=== PATIENT | female | born 1955 | race Caucasian/White ===

== ENCOUNTER 2024-06-07 00:32 | Inpatient (IN) | payer BC, MEDICARE, SELFPAY ==
[2024-06-06 21:11] VITALS: BP 210/144
[2024-06-06 21:32] VITALS: BP 194/93
[2024-06-06 21:36] LABS: % Basophils 0.4 % (0-2); % Eosinophils 0.3 % (0-6); % Immature Granulocytes 0.4 % (0-0.5); % Lymphocytes 18.9 % (20.5-51.1); % Monocytes 6.6 % (1.7-9.3); % Neutrophils 73.4 % (42.2-75.2); Absolute Lymphocytes 1.4 10^3/uL (1.2-3.4); Absolute Monocytes 0.5 10^3/uL (0.1-0.6); Absolute Neutrophils 5.2 10^3/uL (1.4-6.5); Hematocrit 38.2 % (37.0-47.0); Hemoglobin 13.6 g/dL (12.0-16.0); Mean Corp Hgb Conc. 35.6 g/dL (33.0-37.0); Mean Corpuscular Hgb 32.5 pg (27.0-31.0); Mean Corpuscular Volume 91.4 fL (81.0-99.0); Mean Platelet Volume 8.8 fL (7.4-10.4); Nucleated Red Blood Cells % 0 %; Platelet Count 243 10^3/uL (130-400); Red Blood Cell Count 4.18 10^6/uL (4.20-5.40); Red Cell Dist. Width 12.3 % (11.5-14.5); White Blood Cell Count 7.1 10^3/uL (4.8-10.8)
[2024-06-06 22:00] VITALS: BP 179/83
[2024-06-06 22:08] LABS: ALT (SGPT) 35 U/L (0-35); AST (SGOT) 42 U/L (14-36); Albumin 4.7 g/dl (3.5-5.0); Alkaline Phosphatase 58 U/L (38-126); Blood Urea Nitrogen 14 mg/dl (7-17); Carbon Dioxide 21 mmol/L (22-30); Chloride 96 mmol/L (98-107); Glucose 105 mg/dl (70-99); Potassium 3.7 mmol/L (3.5-5.1); Sodium 131 mmol/L (135-145); Total Bilirubin 1.1 mg/dl (0.2-1.3); Total Protein 7.6 g/dl (6.3-8.2); eGFR > 60.00
[2024-06-06 22:12] LABS: INR 0.98; PT 13.3 Sec (11.4-14.6)
[2024-06-06 22:12] LABS: Erythrocyte Sed Rate 7 mm/hour (0-20)
[2024-06-06 22:13] LABS: APTT 30.4 Sec (23.4-35.0)
--- NOTE | 2024-06-06 22:26 | ED.GENMED ---
History of Present Illness
General
Chief Complaint: Change in Mental Status
Source: patient and spouse
Exam Limitations: altered mental status
Time Seen by Provider: 06/06/24 21:24
Nursing documentation reviewed up to this point in time: agreed with
History of Present Illness
History of Present Illness:
came home and found confused around 4 PM. He is concerned because she could not remember any of the events that transpired over the weekend. On my initial exam patient had expressive aphasia without slurring. Patient denies any known
trauma. She does admit to drinking 3 or 4 vodka drinks daily. Significant other states that he left the home around noon and did not notice anything abnormal about her behavior. When he came home around 4 PM he definitely noticed her confusion
and memory loss.
If applicable-neuro sx onset
Onset of symptoms known: Yes
Date of onset of symptoms: 06/06/24
Time of onset of symptoms: 04:00
Time pt last seen normal is known: No
Date last time pt seen normal: 06/06/24
Phy Exam
General Physical Exam
General Presentation: well appearing and no apparent distress
General age: appears stated age
General Skin: warm and dry
General Habitus: normal
General Mental: confused
General Hydration: appears well hydrated
ENT Exam
ENT Exam: EOMI, pharynx normal, neck supple and normocephalic
Eye Exam
Eye Exam: PERRL, cornea clear and conjunctiva normal
Cardiovascular Exam
Cardiovascular Exam: regular rate/rhythm, no edema, no murmur and normal peripheral pulses
Pulmonary Exam
Pulmonary Exam: lungs clear, no respiratory distress, no rales, no crackles, no rhonchi, no stridor, no wheezing and no cough
Gastrointestinal Exam
Gastrointestinal Exam: normal bowel sounds, non tender, soft, no organomegaly, no pulsatile mass and non distended
Neurological Exam
Neurological Exam: alert, oriented x3, no motor deficits and speech normal
Musculoskeletal Exam
Musculoskeletal Exam: full ROM and no edema
Skin Exam
Skin Exam: normal color, warm/dry, no rash and no petechia
Psychiatric Exam
Psychiatric Exam: normal mood/affect
Scores
NIH Stroke Score
Level of Consciousness: 0 - Alert
LOC Questions: 0-Answers both correctly
LOC Commands: 0-Performs both correctly
Best Horizontal Gaze: 0-Normal
Visual Pathak: 0=Normal, no visual loss
Facial Palsy: 0=Normal, symmetrical
Motor - Right Arm: 0=No drift 10 seconds
Motor - Left Arm: 0=No drift 10 seconds
Motor - Right Le-No drift 5 seconds
Motor - Left Le-No drift 5 seconds
Limb Ataxia: 0-Absent
Sensation: 0-Normal
Best Language: 1-Mild aphasia
Dysarthria: 0-Normal
Extinction and Inattention: 0-No abnormality
Total Score:: 1
Thrombolytic Contraindication
Reasons for NON-Tx with Thrombolytics ABSOLUTE Exclusions: Greater than 4.5 hrs from onset of sxs
Course
Orders/Labs/Results
Orders:
Orders
06/06/24 21:17
Electrocardiogram (*1) Urgent
Reason for Study: Bradycardia / Tachycardia
EKG- Treatment ONCE
06/06/24 21:30
CT HEAD STROKE ALERT W/o Cont Urgent
Comment:
Reason For Exam: expressive aphasia since 4pm
CT HEAD/NECK ANG STROKE ALERT Urgent
Comment:
Reason For Exam: expressive aphasia since 4pm
06/06/24 21:31
Alcohol Urgent
C-Reactive Protein Urgent
Comment: ADD ON
Complete Blood Count/With Diff Urgent
Comprehensive Metabolic Panel Urgent
Sed Rate [Erythrocyte Sed Rate] Urgent
06/06/24 21:55
Add On- LAB Urgent
Tests Added?: CRP
06/06/24 21:56
PTT Urgent
Prothrombin Time Urgent
06/06/24 22:30
0.9% Sodium Chloride 1000 ml [Nss] 1,000 ml Mvi, Adult [Multivitamin] 10 ml Thiamine Injection 100 mg IV 250 mls/hr
06/06/24 22:37
Clopidogrel Bisulfate [Plavix] 300 mg PO NOW STA
06/06/24 22:38
Atorvastatin [Lipitor] 40 mg PO NOW STA
06/06/24 22:52
Urine Drug Abuse Screen Urgent
Date Specimen was Collected: 06/06/24
Time Specimen was Collected: 21:27
06/06/24 23:00
Flush (0.9% Sodium Chloride) [Flush (Nss)] See Dose Instructions IV PER PROTOCOL
06/07/24 00:17
Admit/Transfer Patient As Directed
Co-Sign Provider:
Level of Care: Inpatient admission
Assign to:: Telemetry
Physician / Group: hospitalist
Diagnosis: CVA/TIA
Reason for Telemetry: CVA/TIA
Date to Stop Telemetry: 06/10/24
Time to Stop Telemetry: 11:00
Reason for Hospitalization: CVA/TIA
Expected length of stay greater than two midnights?: Yes
ELOS- Estimated Length of Stay in days: 2
I certify the patient meets the requirements for IP care: Yes
PRN Pain Medication Management As Directed
May give lesser potent ordered pain med per pt: Yes
preference::
Protocol:: Medication orders for pain may be administered in a
manner that supports deferring to patient preference
when the pt is:
- Requesting an ordered lesser potent pain medication.
Least to most potent pain medications are defined
as: acetaminophen < NSAID < tramadol < opioids
(morphine, oxycodone, hydromorphone).
- Requesting a lesser dose of the same medication IF
ORDERED.
- Requesting a less intrusive route of administration
if both routes are prescribed by the provider (PO <
IV).
06/07/24 00:18
Code Status As Directed
Resuscitation Status: Full Code
06/10/24 11:00
DC Protocol for Telemetry ONCE
Abnormal Lab Results
06/06/24
21:31
RBC 4.18 L 10^6/uL
(4.20-5.40)
MCH 32.5 H pg
(27.0-31.0)
Lymphocytes % 18.9 L %
(20.5-51.1)
Sodium 131 L mmol/L
(135-145)
Chloride 96 L mmol/L
(98-107)
Carbon Dioxide 21 L mmol/L
(22-30)
Glucose 105 H mg/dl
(70-99)
AST 42 H U/L
(14-36)
06/06/24 21:31
06/06/24 21:31
Vital Signs
Initial and Last Documented VS:
Initial Vital Signs
Temp Pulse Resp BP Pulse Ox
98.5 F 122 22 210/144 98
06/06/24 21:11 06/06/24 21:11 06/06/24 21:11 06/06/24 21:11 06/06/24 21:11
Last Documented Vital Signs
Temp Pulse Resp BP Pulse Ox
98.5 F 108 19 98/65 96
06/06/24 21:11 06/07/24 00:15 06/07/24 00:15 06/07/24 00:15 06/07/24 00:15
MDM/Problems Addressed
Differential Diagnosis Includes:
CVA versus TIA, transient global amnesia, toxic metabolic encephalopathy, alcoholic encephalopathy
Chronic conditions affecting care:
Chronic alcohol use
*Radiology
Radiology exam reviewed: radiology read reviewed
*EKG
Interpreted by ED Provider?: Yes
Interpretation: abnormal
Comparison EKG: changes noted
Heart Rate: 117
Rate: tachycardiac
Rhythm: sinus
[place]: normal axis
Interval: normal interval
QRS Pattern: normal QRS
Ischemia: no ischemia
*[employer] Interpretation
Rate: tachycardiac
Heart Rate: 104
Rhythm: sinus and sinus tachycardia
*Critical Care Note
Total Time (30-74mins, 75-104mins- exclusive of procedures): 42 (Critical care statement: A total of 42 minutes of critical care time was provided for this patient. This time is separate from time utilized to perform the aforementioned documented
procedures. Aggregate critical care time includes only time during which I was engaged in work directl)
Update Note
Update Note:
Spoke with Dr. Padron who does not recommend TNKase due to the uncertainty of the onset of symptoms.
ED Attending Note
-
Portions of this chart may have been created with voice recognition software.� Occasional wrong word or��sound alike� substitutions may have occurred due to the inherent limitations of voice recognition software.
Discharge Plan
Departure
Patient Disposition: Admit
Date of Disposition: 06/06/24
Time of Disposition: 22:59
Admit to: Telemetry
Presentation/result/management discussed w/ accepting MD/DO: Hospitalist
Discharge Problem:
Expressive aphasia, TIA versus CVA, Mental status alteration
Interventions
Interventions:
*Risk Screen - Suicide Last Done: 06/06/24 21:25
*General Assessment Last Done: 06/06/24 21:25
*Neglect/Abuse Screening Last Done: 06/06/24 21:25
*ED- Fall Risk Assessment Last Done: 06/06/24 21:25
*ED COVID-19 Vaccine History Last Done: 06/06/24 21:25
ED- Neurological Assessment Last Done: 06/06/24 21:25
ED Swallowing Screen Last Done: 06/06/24 22:50
[2024-06-06] MEDS: MULTIVITAMIN 1011 MG IV (22:52)
[2024-06-06] MEDS: MULTIVITAMIN 1011 ML IV (22:52)
[2024-06-06] MEDS: LIPITOR 40 MG PO (22:53)
[2024-06-06] MEDS: PLAVIX 300 MG PO (22:53)
[2024-06-06 22:57] VITALS: BP 172/97
[2024-06-06 23:00] VITALS: BP 173/90
[2024-06-06 23:16] LABS: Amphetamines Negative (Negative); Barbiturates Negative (Negative); Benzodiazepines Negative (Negative); Buprenorphine Negative (Negative); Cocaine Negative (Negative); Marijuana Negative (Negative); Methadone Negative (Negative); Methamphetamines Negative (Negative); Opiates Negative (Negative); Phencyclidine Negative (Negative); Tricyclic Antidepressants Negative (Negative)
[2024-06-06 23:27] LABS: C-Reactive Protein < 5.00 mg/L (0.0-10.00)
[2024-06-07] VITALS (11 sets, daily range): BP systolic 98–178; BP diastolic 62–104; PULSE 94–95; O2SAT 97–99; BMI 27.9
--- NOTE | 2024-06-07 00:07 | HPS.HSE ---
Family Physician
-
Family Physician: Nelsy Melton
Chief Complaint
-
Change in mental status
History of Present Illness
This is a 69-year-old female past history of hypertension, hyperlipidemia, presenting to the emergency department with a 1 day history of altered mental status and expressive aphasia.
Patient apparently arose in usual state of health this morning. She was last seen normal at 12 noon. When spouse came back at 4 PM she appeared confused. She did not remember the events of the day. She was confused about the placement of the
furniture in her home. She has memory lapses and was repeating questions to the . The also noticed that her speech was intermittently garbled and she had word finding difficulties.
She did not have any facial asymmetry. She did not have any numbness tingling. She was stated mildly stiff but did not have any focal weakness. She has no recent urinary tract symptoms. She had no cough shortness of breath fevers or chills.
Patient has no recent travels or known sick contacts. She drinks about 3 glasses of wine a day and has no history of alcohol withdrawal or intoxication.
In the emergency department she was hypertensive to 180/90 with a pulse of 109 and she was satting 97% on room air. ECG with sinus tachycardia at a rate of 117. CT of the head shows no acute interval changes. CT angio shows no acute changes but
there were bilateral carotid bulb atherosclerosis less than 30%. No large vessel occlusion, dissection or aneurysm.
CBC was complete normal. Electrolytes BUN/creatinine were also normal. Glucose was normal.
Medical History
Past Medical History
Past Medical History: Reports HTN and Hypercholesterolemia
Past Surgical History: Reports Orthopedic (Left total hip arthroplasty)
Social History
Tobacco: Non-smoker
Alcohol: Daily
Drug: None
Personal:
Living: With Family
Employment: Employed
Family History
Family History: Not pertinent
Allergies / Home Medications
Allergies reflects when Allergies were last updated in [employer].
Home Medications with original date entered in [employer]
Allergy/Medication List:
Allergies
Allergy/AdvReac Type Severity Reaction Status Date / Time
penicillin G [Penicillin G] Allergy YEAST Verified 06/06/24 21:13
INFECTIONS
Home Medications
Aspir 81 81 mg PO DAILY 11/21/10
Res Q 1250 3 tab PO DAILY 11/21/10
atorvastatin 10 mg tablet 10 mg PO DAILY 11/21/10
calcium carb 133 mg-vitD3 133 unit-mag amino acid chelate 67mg capsule (Coral Calcium) 2 ea PO DAILY 11/21/10
ibuprofen 200 mg tablet 200 mg PO PRN pain 11/21/10
meloxicam 15 mg tablet 15 mg PO DAILY 11/21/10
multivit-iron 18 mg-folic acid 400 mcg-calcium 500 mg-minerals tablet (Women's Daily Formula) 1 ea PO DAILY 11/21/10
valsartan 80 mg tablet 160 mg PO DAILY 11/21/10
Tylenol 650 mg PO PRN PRN pain 12/05/10
ibuprofen-diphenhydramine citrate 200 mg-38 mg tablet (Advil PM) 0.5 tab PO HS 12/05/10
Review of Systems
-
History Source: Patient and Family
Constitutional: Reports No Symptoms
EENT: Reports No Symptoms
Respiratory: Reports No Symptoms
Cardiac: Reports No Symptoms
Abdomen/GI: Reports No Symptoms
: Reports No Symptoms
Musculoskeletal: Reports No Symptoms
Skin: Reports No Symptoms
Neurological: Reports Other (Aphasia)
Endocrine: Reports No Symptoms
Hematologic/Lymphatic: Reports No Symptoms
Psych: Reports No Symptoms
Physical Exam
Vital Signs
Vital Signs
Temp Pulse Resp BP Pulse Ox
98.5 F 105 18 173/90 97
06/06/24 21:11 06/06/24 23:45 06/06/24 23:45 06/06/24 23:00 06/06/24 23:45
Physical Exam
General: Well Developed, Well Nourished and Comfortable
HEENT: NormoCephalic, Anicteric, Moist mucous membranes, Atraumatic and PERRLA
Respiratory: Clear
Cardiac: S1/S2 and Regular Rhythm
Breast: Deferred by me
GI: Soft, Non Tender, Non Distended and Normal Bowel Sounds
Rectal: Deferred by Provider
Genito-urinary: Deferred by me
Musculoskeletal: No Clubbing, No Cyanosis and No Edema
Skin: Warm and Dry
Neuro: Alert, Oriented (oriented to place but forgot the year), No Motor Deficits, Cranial Nerves Intact, No Sensory Deficits and Slurred Speech (mild dysarthria); No Facial Droop or Tremors
Hematologic/Lymphatic: No Lymphadenopathy
Psych: Calm
Laboratory Results
-
06/06/24 21:31
06/06/24 21:31
Laboratory Results
PT 13.3 Sec (11.4-14.6) 06/06/24 21:56
INR 0.98 06/06/24 21:56
APTT 30.4 Sec (23.4-35.0) 06/06/24 21:56
Total Bilirubin 1.1 mg/dl (0.2-1.3) 06/06/24 21:31
AST 42 U/L (14-36) H 06/06/24 21:31
ALT 35 U/L (0-35) 06/06/24 21:31
Alkaline Phosphatase 58 U/L (38-126) 06/06/24 21:31
Data Reviewed
-
CT Scan: Report Reviewed by me
Medical Tests (Nuc Med, Echo, EKG etc): Image Personally Visualized and interpreted
Lab Data: Labs Reviewed by me
Old Records: Reviewed
Impression/Plan
-
IMPRESSION:
72-year-old with history of hyperlipidemia, hypertension who presents to the emergency department approximately 9 hours after last seen normal at 12 PM. She has expressive aphasia as well as garbled speech. She also has short-term memory
difficulties. All acute onset today. She has no prior history of CVA or TIA. She has normal tenderness, normal strength and sensation. NIHSS = 2. She is keenly aware of her deficit. Unlikely global encephalopathy. Due to timing she is not a
candidate for TNK.
PLAN:
CVA/TIA
- admit to telemetry
- MRI brain in am
- echo
- lipid panel and a1c, esr, b12, tsh
- start aspirin/plavix/statin for now
- neurochecks q 6 hours
- permissive htn fo rnow, labetolol prn with goal MAP 100 - 120, SBP < 180
- Pt/ot/speech
- neurology consultation
DVT PPX - lovenox sq
Code status - full code
--- NOTE | 2024-06-07 03:51 | PTCARENOTE ---
Received pt from ER,pt is alert,oriented and able to walk form stretcher to bed and stand on scale.Pt still presents with expressive aphasia unchanged from ER.NIH 2 at this time.Pt denies pain,physical assessment preformed with ease.VS stable SR
cardiac rn.IVF infusing at 250 hour.Pt passed swallow eval.Close observation ongoing throughout the night.
--- NOTE | 2024-06-07 06:52 | CON.NEURO ---
Consultation
Order
Date of Consultation: 06/07/24
Requesting Provider: Bhavana Raines MD
Reason for Consult: CVA/TIA, expressive aphasia
Neurology Consultation Note.
HPI: This is a 69-year-old RH woman who presented to [facility] on 06/06/2024 with encephalopathy.
Ms. Shaffer reports having a headache but is unable to provide details about the onset or circumstances leading to her hospitalization.
She is unable to recall how she arrived at the hospital or the events preceding her admission. 'Where have I been?' and 'What happened to me?'
Despite her memory issues, the patient was able to provide some personal information. She states she lives with her , works at [employer], has three children, and drives.
ER VS: 210/144, 122, afebrile
EKG: Sinus tachycardia at 117, QTc Int : 471 ms.
PDMP:none
Labs: Glucose�105, sodium�131, normal WBCs, creatinine, platelets
CT head wo contrast�no acute abnormalities, basal ganglia calcifications,
CTA head/neck�no significant intracranial stenosis
PMH: HTN, DLP, OA, osteoporosis
PSH: L KEREN, right knee anterior cruciate ligament reconstruction
SH: , non-smoker, works at [employer], social alcohol use
FH: Unknown
All: Penicillin
ROS: Constitutional: Negative. Negative for chills, fever and unexpected weight change.
HENT: Negative for ear pain, hearing loss, tinnitus and trouble swallowing.
Eyes: Negative. Negative for photophobia, pain and visual disturbance.
Respiratory: Negative for cough, choking and shortness of breath.
Cardiovascular: Negative for chest pain, palpitations and leg swelling.
Gastrointestinal: Negative for abdominal pain and vomiting.
Endocrine: Negative. Negative for cold intolerance.
Genitourinary: Negative for dysuria, flank pain and urgency.
Musculoskeletal: Negative for back pain, gait problem, neck pain and neck stiffness.
Skin: Negative for rash.
Allergic/Immunologic: Negative. Negative for immunocompromised state.
Neurological: Positive for amnesia and headache
Psychiatric/Behavioral: Negative for behavioral problems, confusion and hallucinations.
General: Well developed. In no acute distress.
Cardio: Regular rate and rhythm without murmur. Extremities are without cyanosis or edema.
Neuro:
Mental Status: Alert, oriented to name, '[facility]? ', . Did not know her age, month, season, year, president. Able to recall and enter her iPhone password. Impaired attention and preserved comprehension. Follows simple requests
consistently. Able to name, repeat, read. No hemineglect.
Cranial Nerves: Pupils are equally round and reactive to light. EOMs full. Visual cutler full to confrontation. No ptosis. No nystagmus. Face symmetric. Normal hearing AU. The palate elevated well. SCMs and traps 5/5. Tongue midline. No
dysarthria.
Motor: Normal bulk and tone. No pronator or arm drift. Strength 5/5 throughout. No clonus.
Reflexes: Trace throughout no grasp,
Sensory: Was able to feel vibration at the toes
Coordination: No dysmetria or tremor.
Gait: deferred
Assessment and Plan:
I. Hypertensive emergency
II. Amnestic syndrome
III. DLP
-Continue Telemetry monitoring
-Aspiration precautions
-Cautious lowering of BP by approximately 15 % during the first 24 hours is SBP >220 mmHg or diastolic blood pressure >120 mmHg
-Restart antihypertensive medications if BP>140/90 mmHg and neurologically stable in 24 to 48 hours after stroke onset
-Start ASA 81 mg QD
-Please check urine tox, thiamine level, TFTs
-Routine EEG
-Brain MRI without jordyn
-Start IV thiamine
-Will contact patient's spouse to obtain collateral history.
-DVT prophylaxis.
I personally reviewed all radiology and labs along with past medical records pertinent to current medical problems. Total time spent in patient care is 60 minutes.
Thank you for allowing us to participate in the care of this patient. We will continue to follow. Please do not hesitate to contact us with any questions or concerns.
Subjective/Objective
Subjective Data
Date of Service: June 07, 2024
Objective Data
Vital Signs
Temp Pulse Resp BP Pulse Ox
36.6 C 100 16 170/91 96
06/07/24 03:15 06/07/24 03:15 06/07/24 03:15 06/07/24 03:15 06/07/24 03:48
Lab Results
06/06/24 21:31
PT 13.3 Sec (11.4-14.6) 06/06/24 21:56
INR 0.98 06/06/24 21:56
APTT 30.4 Sec (23.4-35.0) 06/06/24 21:56
Sodium 131 mmol/L (135-145) L 06/06/24 21:31
Potassium 3.7 mmol/L (3.5-5.1) 06/06/24 21:31
BUN 14 mg/dl (7-17) 06/06/24 21:31
Glucose 105 mg/dl (70-99) H 06/06/24 21:31
Calcium 10.0 mg/dl (8.4-10.2) 06/06/24 21:31
Ur Buprenorphine Negative (Negative) 06/06/24 22:52
Patient Allergies
penicillin G [Penicillin G] Allergy (Verified 06/06/24 21:13)
YEAST INFECTIONS
Medications
-
Active Medications
Generic Name Dose Route Start Last Admin
Trade Name Freq PRN Reason Stop Dose Admin
Acetaminophen 650 mg 06/07/24 01:02
Acetaminophen 650 Mg Rectal Suppository RECTAL 07/05/24 01:01
Q4HPRN PRN
ROGER, mild pain, or temp >100.4F
Acetaminophen 650 mg 06/07/24 01:02
Acetaminophen 325 Mg Tablet PO 07/05/24 01:01
Q4HPRN PRN
ROGER, mild pain, or temp >100.4F
Aspirin 81 mg 06/07/24 08:00
Aspirin 81 Mg Chewable Tablet PO 07/05/24 07:59
DAILY HELEN
Atorvastatin Calcium 80 mg 06/07/24 18:00
Atorvastatin (Lipitor) 80 Mg Tablet PO 07/05/24 17:59
QPM HELEN
Clopidogrel Bisulfate 75 mg 06/07/24 08:00
Clopidogrel 75 Mg Tablet PO 07/05/24 07:59
DAILY HELEN
Enoxaparin Sodium 40 mg 06/07/24 18:00
Enoxaparin Sodium 40 Mg/0.4 Ml Syringe SC 07/05/24 17:59
QPM HELEN
Hydrochlorothiazide 25 mg 06/07/24 08:00
Hydrochlorothiazide 25 Mg Tablet PO 07/05/24 07:59
DAILY HELEN
Labetalol HCl 10 mg 06/07/24 01:02
Labetalol Hcl 5 Mg/1 Ml (20 Mg/4 Ml) Injection IV 07/05/24 01:01
Q6HPRN PRN
SBP > 180 or MAP > 125
Magnesium Hydroxide 30 ml 06/07/24 01:02
Milk Of Magnesia 30 Ml Cup PO 07/05/24 01:01
BIDPRN PRN
constipation
Sodium Chloride 0 flush 06/06/24 23:00
Sodium Chloride 0.9% (Flush) Syringe IV 07/04/24 22:59
PER PROTOCOL HELEN
Valsartan 160 mg 06/07/24 08:00
Valsartan 160 Mg Tablet PO 07/05/24 07:59
DAILY HELEN
Home Medications
�Medication �Instructions �Recorded
Aspir 81 81 mg PO DAILY 09/28/11
Res Q 1250 3 tab PO DAILY 11/21/10
atorvastatin 10 mg tablet 10 mg PO DAILY 11/21/10
calcium carb 133 mg-vitD3 133 2 ea PO DAILY 11/21/10
unit-mag amino acid chelate 67mg
capsule (Coral Calcium)
ibuprofen 200 mg tablet 200 mg PO PRN pain 11/21/10
meloxicam 15 mg tablet 15 mg PO DAILY 11/21/10
multivit-iron 18 mg-folic acid 400 1 ea PO DAILY 11/21/10
mcg-calcium 500 mg-minerals tablet
(Women's Daily Formula)
valsartan 80 mg tablet 160 mg PO DAILY 11/21/10
Tylenol 650 mg PO PRN PRN pain 12/05/10
ibuprofen-diphenhydramine citrate 0.5 tab PO HS 12/05/10
200 mg-38 mg tablet (Advil PM)
Vital Signs and Labs
-
Vital Signs and Labs:
Vital Signs
Temp Pulse Resp BP Pulse Ox
36.6 C 100 16 170/91 96
06/07/24 03:15 06/07/24 03:15 06/07/24 03:15 06/07/24 03:15 06/07/24 03:48
Lab Results
06/06/24 21:31
PT 13.3 Sec (11.4-14.6) 06/06/24 21:56
INR 0.98 06/06/24 21:56
APTT 30.4 Sec (23.4-35.0) 06/06/24 21:56
Sodium 131 mmol/L (135-145) L 06/06/24 21:31
Potassium 3.7 mmol/L (3.5-5.1) 06/06/24 21:31
BUN 14 mg/dl (7-17) 06/06/24 21:31
Glucose 105 mg/dl (70-99) H 06/06/24 21:31
Calcium 10.0 mg/dl (8.4-10.2) 06/06/24 21:31
Ur Buprenorphine Negative (Negative) 06/06/24 22:52
Medications
-
Medications:
Generic Name Dose Route Start Last Admin
Trade Name Freq PRN Reason Stop Dose Admin
Acetaminophen 650 mg 06/07/24 01:02
Acetaminophen 650 Mg Rectal Suppository RECTAL 07/05/24 01:01
Q4HPRN PRN
ROGER, mild pain, or temp >100.4F
Acetaminophen 650 mg 06/07/24 01:02
Acetaminophen 325 Mg Tablet PO 07/05/24 01:01
Q4HPRN PRN
ROGER, mild pain, or temp >100.4F
Aspirin 81 mg 06/07/24 08:00
Aspirin 81 Mg Chewable Tablet PO 07/05/24 07:59
DAILY HELEN
Atorvastatin Calcium 80 mg 06/07/24 18:00
Atorvastatin (Lipitor) 80 Mg Tablet PO 07/05/24 17:59
QPM HELEN
Clopidogrel Bisulfate 75 mg 06/07/24 08:00
Clopidogrel 75 Mg Tablet PO 07/05/24 07:59
DAILY HELEN
Enoxaparin Sodium 40 mg 06/07/24 18:00
Enoxaparin Sodium 40 Mg/0.4 Ml Syringe SC 07/05/24 17:59
QPM HELEN
Hydrochlorothiazide 25 mg 06/07/24 08:00
Hydrochlorothiazide 25 Mg Tablet PO 07/05/24 07:59
DAILY HELEN
Labetalol HCl 10 mg 06/07/24 01:02
Labetalol Hcl 5 Mg/1 Ml (20 Mg/4 Ml) Injection IV 07/05/24 01:01
Q6HPRN PRN
SBP > 180 or MAP > 125
Magnesium Hydroxide 30 ml 06/07/24 01:02
Milk Of Magnesia 30 Ml Cup PO 07/05/24 01:01
BIDPRN PRN
constipation
Sodium Chloride 0 flush 06/06/24 23:00
Sodium Chloride 0.9% (Flush) Syringe IV 07/04/24 22:59
PER PROTOCOL HELEN
Valsartan 160 mg 06/07/24 08:00
Valsartan 160 Mg Tablet PO 07/05/24 07:59
DAILY HELEN
Home Medications
-
Home Medications
Aspir 81 81 mg PO DAILY 11/21/10
Res Q 1250 3 tab PO DAILY 11/21/10
atorvastatin 10 mg tablet 10 mg PO DAILY 11/21/10
calcium carb 133 mg-vitD3 133 unit-mag amino acid chelate 67mg capsule (Coral Calcium) 2 ea PO DAILY 11/21/10
ibuprofen 200 mg tablet 200 mg PO PRN pain 11/21/10
meloxicam 15 mg tablet 15 mg PO DAILY 11/21/10
multivit-iron 18 mg-folic acid 400 mcg-calcium 500 mg-minerals tablet (Women's Daily Formula) 1 ea PO DAILY 11/21/10
valsartan 80 mg tablet 160 mg PO DAILY 11/21/10
Tylenol 650 mg PO PRN PRN pain 12/05/10
ibuprofen-diphenhydramine citrate 200 mg-38 mg tablet (Advil PM) 0.5 tab PO HS 12/05/10
[2024-06-07 08:18] LABS: Blood Urea Nitrogen 9 mg/dl (7-17); Carbon Dioxide 20 mmol/L (22-30); Chloride 99 mmol/L (98-107); Estimated Creatinine Clearance 78 ml/min; Glucose 102 mg/dl (70-99); HDL Cholesterol 86 mg/dl; LDL Cholesterol, Calculated 94 mg/dl; Potassium 3.6 mmol/L (3.5-5.1); Sodium 132 mmol/L (135-145); Total Cholesterol 202 mg/dl (50-199); Triglyceride 110 mg/dl (10-149); Very Low Density Lipoprotein 22 mg/dl (0-30); eGFR > 60.00
[2024-06-07] MEDS: LOW STRENGTH ASPIRIN 81 MG PO (08:21)
[2024-06-07] MEDS: ORETIC 25 MG PO (08:21)
[2024-06-07] MEDS: PLAVIX 75 MG PO (08:22)
[2024-06-07] MEDS: DIOVAN 160 MG PO (08:22)
--- NOTE | 2024-06-07 09:00 | PTOTSP ---
Speech Language Pathology
Pt seen for speech/language evaluations. No dysarthria noted. Mild expressive and receptive aphasia noted. Pt typically speaking in short phrases. For example, when talking about her job, pt stating 'I work at [employer]. Uh...I love it. Uh...What
else? Busy. 5 days a week. I applied.' Language evaluated via the Quick Aphasia Battery (QAB), form 1. Pt with an overall score of 9.01 indicative of overall abilities WNL. However, on grammatical construction subtest, pt scored 6.00,
indicative of moderate deficits. Cognitive deficits also noted in informal questioning.
Pt also seen for clinical bedside swallow evaluation. P.O. trials of puree, regular solids, and thin liquids provided. Adequate mastication, bolus formation, and A-P transit noted with no oral residue. Audible swallow with liquids, but no overt
signs of aspiration.
Recommend:
(1) Regular solids/thin liquids
(2) General aspiration precautions
(3) Meds as tolerated
(4) PRESCHOOL PRINCIPAL to continue to follow to ensure diet tolerance and for cognitive-linguistic tx
[2024-06-07 09:07] LABS: Glycohemoglobin (HgbA1c) 5.5 % (4.0-5.6)
[2024-06-07 10:43] LABS: TSH 1.33 uIU/ml (0.47-4.68)
[2024-06-07 10:51] LABS: TSH Reflex To Free T4 3.29 uIU/ml (0.47-4.68)
[2024-06-07 11:02] LABS: Vitamin B12 869 pg/ml (239-931)
[2024-06-07] MEDS: THIAMINE INJECTION 100 MG IV (11:46)
[2024-06-07 12:03] LABS: Folate > 20.0 ng/ml (2.76-20); Vitamin B12 861 pg/ml (239-931)
--- NOTE | 2024-06-07 12:24 | CM ---
Patient seen at bedside. Patient out of room for testing. Patient stated that she works at [employer] and that she lives with him in a 2 story home. Patient with primary first floor set up. Patient just changed her PCP from the [facility]
family practice, to Dr. Ruiz. Patient indicated that she uses [facility] in [place]. Patient was independent of ADL's and IADL's prior to admission and was driving. Patient has signed up for Medicare part A. Patient and awaiting
confirmation of Therapy recommendations. CM will continue to follow for discharge planning needs. CM will continue to follow for discharge planning needs.
Plan;home with [facility] vs [facility] vs SNF pending therapy and medical recommendations
--- NOTE | 2024-06-07 12:43 | PTOTSP ---
Pt exhibits some expressive aphasia but is able to ambulate independently without need for any assistive devices. No PT needs were identified. Will sign off at this time. Reconsult if mobility worsens.
--- NOTE | 2024-06-07 13:29 | W.PN.HOSP.TC ---
Today's Communication/Plan
-
Pending echo
Assessment / Plan
Assessment / Plan
Impression:
This is a 69-year-old female past history of hypertension, hyperlipidemia, presenting to the emergency department with a 1 day history of altered mental status and expressive aphasia.
MRI showed:
Acute to subacute infarcts of the left caudate nucleus, and smaller infarcts of the left gonzalez radiata and bilateral frontal lobes.
Seen by neurology.
Assessment/plan
Acute CVA
Patient presented with confusion and aphasia
CT head done in the ER shows no acute finding
CTA Head: No significant arterial stenosis. No aneurysm.
CTA Neck: No significant arterial stenosis. Atherosclerotic calcifications of the bilateral carotid bifurcations/proximal ICAs with less than 30% stenosis by NASA criteria.
MRI showed:
Acute to subacute infarcts of the left caudate nucleus, and smaller infarcts of the left gonzalez radiata and bilateral frontal lobes.
Seen by neurology.
Frequent neurocheck.
Allow permissive hypertension.
Hemoglobin A1c 5.5
Fasting lipid panel shows LDL at 94.
Continue aspirin, plavix and high intensity statin
PT/OT consult.
Social service for discharge plan.
Echo pending
Hypertensive urgency.
Allow permissive hypertension.
Continue current meds
Hyponatremia.
Continue to monitor
CODE STATUS: Full code
DVT prophylaxis: Lovenox
Diet: cardiac diet
Discussed with at bedside
Total time spent on today's encounter was 65 minutes which included time spent in counseling the patient/family regarding diagnosis and treatment plan as listed above, goals of care, and symptom management. Case was discussed with nursing staff,
specialists, and care coordinators/case management. All labs and imaging personally reviewed by me. Remainder the time spent in detailed review of previous records, lab data, imaging, and other medical provider documentation.
Anticipated Discharge: 24 - 48 hours
Subjective/Interval History
-
Date of Service: June 07, 2024
Patient seen and examined at bedside, denies any chest pain or shortness of breath, no abdominal pain, no nausea, no vomiting, no diarrhea or constipation.
Patient still on and off confusion, memory loss.
Discussed later with at bedside.
Objective Data
-
Labs:
Laboratory Results
06/07/24
06:47
Sodium 132 L
Potassium 3.6
Chloride 99
Carbon Dioxide 20 L
BUN 9
Creatinine 0.5 L
Glucose 102 H
Calcium 9.0
Vital Signs:
Vital Signs
Temp Pulse Resp BP Pulse Ox
98.3 F 95 18 178/83 98
06/07/24 11:45 06/07/24 11:45 06/07/24 11:45 06/07/24 11:45 06/07/24 11:45
I&O
06/06/24 06/07/24 06/08/24
06:59 06:59 06:59
Intake Total 1200 / 1200 180 / 180
Balance 1200 / 1200 180 / 180
Physical Exam
-
General: Well Developed, Well Nourished, No Apparent Distress and Comfortable
HEENT: Normocephalic, Atraumatic, Moist Mucous Membranes, No Ptosis, PERRLA and Nose Appears Normal
Respiratory: Clear to Auscultation and Non Labored Respirations
Cardiac: Regular Rhythm and S1/S2
Breast: Deferred by me
GI: Soft, Nontender, Nondistended and Normal Bowel Sounds
Genito-urinary: No Costovertebral Tender
Musculoskeletal: No Clubbing, No Cyanosis and No Edema
Skin: Warm
Neuro: Awake and Other (Not a fully oriented)
Psych: Calm
Data Reviewed
-
Diagnostic Radiology: Image personally visualized and interpreted and Report Reviewed by me
CT Scan: Image personally visualized and interpreted and Report Reviewed by me
Ultrasound: Image personally visualized and interpreted and Report Reviewed by me
MRI: Image personally visualized and interpreted and Report Reviewed by me
Medical Tests (Nuc Med, Echo etc): Image personally visualized and interpreted and Report Reviewed by me
Labs: Labs Reviewed by me
Old Records: Reviewed
[2024-06-07] MEDS: LIPITOR 80 MG PO (18:21)
[2024-06-07] MEDS: LOVENOX 40 MG SC (18:21)
[2024-06-08] VITALS (7 sets, daily range): BP systolic 100–153; BP diastolic 51–85; PULSE 87; O2SAT 97
[2024-06-08 07:11] LABS: Hematocrit 36.8 % (37.0-47.0); Hemoglobin 12.9 g/dL (12.0-16.0); Mean Corp Hgb Conc. 35.1 g/dL (33.0-37.0); Mean Corpuscular Hgb 32.6 pg (27.0-31.0); Mean Corpuscular Volume 92.9 fL (81.0-99.0); Platelet Count 219 10^3/uL (130-400); Red Blood Cell Count 3.96 10^6/uL (4.20-5.40); Red Cell Dist. Width 12.1 % (11.5-14.5); White Blood Cell Count 4.3 10^3/uL (4.8-10.8)
--- NOTE | 2024-06-08 07:21 | W.PN.NEURO.1 ---
Today's Communication / Plan
-
.
Subjective/Objective
Subjective Data
Date of Service: June 08, 2024
Neurology follow-up note.
Ms. Shaffer she reports no complaints.
24-hour events: Blood pressure has normalized, afebrile.
Brain MRI wo jordyn-subacute infarcts of the left caudate nucleus, and smaller infarcts of the left gonzalez radiata and bilateral frontal lobes.
TTE-interatrial septum is intact with no evidence of shunting by color flow Doppler. No intracardiac mass or thrombus formation seen.
LDL�94, hemoglobin A1c�5.5, urine tox�negative
PMH: HTN, DLP, OA, osteoporosis
PSH: L KEREN, right knee anterior cruciate ligament reconstruction
SH: , non-smoker, works at [employer], social alcohol use
FH: Unknown
All: Penicillin
ROS: Constitutional: Negative. Negative for chills, fever and unexpected weight change.
HENT: Negative for ear pain, hearing loss, tinnitus and trouble swallowing.
Eyes: Negative. Negative for photophobia, pain and visual disturbance.
Respiratory: Negative for cough, choking and shortness of breath.
Cardiovascular: Negative for chest pain, palpitations and leg swelling.
Gastrointestinal: Negative for abdominal pain and vomiting.
Endocrine: Negative. Negative for cold intolerance.
Genitourinary: Negative for dysuria, flank pain and urgency.
Musculoskeletal: Negative for back pain, gait problem, neck pain and neck stiffness.
Skin: Negative for rash.
Allergic/Immunologic: Negative. Negative for immunocompromised state.
Neurological: Positive for amnesia and headache
Psychiatric/Behavioral: Negative for behavioral problems, confusion and hallucinations.
General: Well developed. In no acute distress.
Cardio: Regular rate and rhythm without murmur. Extremities are without cyanosis or edema.
Neuro:
Mental Status: Alert, oriented to self, location, month, year, president, date of . Did not know her age, date.' Fluent. Follows complex requests. No hemineglect.
Cranial Nerves: Pupils are equally round and reactive to light. EOMs full. Visual cutler full to confrontation. No ptosis. No nystagmus. Face symmetric. Normal hearing AU. The palate elevated well. SCMs and traps 5/5. Tongue midline. No
dysarthria.
Motor: Normal bulk and tone. No pronator or arm drift. Strength 5/5 throughout. No clonus.
Reflexes: Trace throughout no grasp,
Sensory: Was able to feel vibration at the toes
Coordination: No dysmetria or tremor.
Gait: deferred
Assessment and Plan:
I. 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
II. 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
III. DLP
-Continue Telemetry monitoring
-Medication administration supervision
-Delegate financial decision making
-Continue aspirin 81 mg once a day and Plavix 75 mg once a day
-Outpatient Holter monitoring and cardiology follow-up
-Continue Lipitor 80 mg once a day
-No driving. The patient showed use alternative transportation options such as public transport, rideshare services, or assistance from family and friends.
-Outpatient neurology follow-up
- Please recall neurology services any questions or concerns
I personally reviewed all radiology and labs along with past medical records pertinent to current medical problems. Total time spent in patient care is 35 minutes.
Thank you for allowing us to participate in the care of this patient. Please do not hesitate to contact us with any questions or concerns.
Objective Data
Vital Signs
Temp Pulse Resp BP Pulse Ox
36.7 C 77 16 125/66 100
06/08/24 03:00 06/08/24 03:00 06/08/24 03:00 06/08/24 03:00 06/08/24 03:00
Lab Results
06/08/24 06:13
PT 13.3 Sec (11.4-14.6) 06/06/24 21:56
INR 0.98 06/06/24 21:56
APTT 30.4 Sec (23.4-35.0) 06/06/24 21:56
Sodium 132 mmol/L (135-145) L 06/07/24 06:47
Potassium 3.6 mmol/L (3.5-5.1) 06/07/24 06:47
BUN 9 mg/dl (7-17) 06/07/24 06:47
Glucose 102 mg/dl (70-99) H 06/07/24 06:47
Calcium 9.0 mg/dl (8.4-10.2) 06/07/24 06:47
LDL Cholesterol, Calc 94 mg/dl 06/07/24 06:47
Vitamin B12 861 pg/ml (239-931) 06/07/24 08:43
Ur Buprenorphine Negative (Negative) 06/06/24 22:52
Patient Allergies
penicillin G [Penicillin G] Allergy (Verified 06/06/24 21:13)
YEAST INFECTIONS
Vital Signs and Labs
-
Vital Signs and Labs:
Vital Signs
Temp Pulse Resp BP Pulse Ox
36.7 C 77 16 125/66 100
06/08/24 03:00 06/08/24 03:00 06/08/24 03:00 06/08/24 03:00 06/08/24 03:00
Lab Results
06/08/24 06:13
PT 13.3 Sec (11.4-14.6) 06/06/24 21:56
INR 0.98 06/06/24 21:56
APTT 30.4 Sec (23.4-35.0) 06/06/24 21:56
Sodium 132 mmol/L (135-145) L 06/07/24 06:47
Potassium 3.6 mmol/L (3.5-5.1) 06/07/24 06:47
BUN 9 mg/dl (7-17) 04/14/25 06:47
Glucose 102 mg/dl (70-99) H 06/07/24 06:47
Calcium 9.0 mg/dl (8.4-10.2) 06/07/24 06:47
LDL Cholesterol, Calc 94 mg/dl 06/07/24 06:47
Vitamin B12 861 pg/ml (239-931) 06/07/24 08:43
Ur Buprenorphine Negative (Negative) 06/06/24 22:52
Medications
-
Medications:
Generic Name Dose Route Start Last Admin
Trade Name Freq PRN Reason Stop Dose Admin
Acetaminophen 650 mg 06/07/24 01:02
Acetaminophen 650 Mg Rectal Suppository RECTAL 07/05/24 01:01
Q4HPRN PRN
ROGER, mild pain, or temp >100.4F
Acetaminophen 650 mg 06/07/24 01:02
Acetaminophen 325 Mg Tablet PO 07/05/24 01:01
Q4HPRN PRN
ROGER, mild pain, or temp >100.4F
Aspirin 81 mg 06/07/24 08:00 06/07/24 08:21
Aspirin 81 Mg Chewable Tablet PO 07/05/24 07:59 81 mg
DAILY HELEN Administration
Atorvastatin Calcium 80 mg 06/07/24 18:00 06/07/24 18:21
Atorvastatin (Lipitor) 80 Mg Tablet PO 07/05/24 17:59 80 mg
QPM HELEN Administration
Clopidogrel Bisulfate 75 mg 06/07/24 08:00 06/07/24 08:22
Clopidogrel 75 Mg Tablet PO 07/05/24 07:59 75 mg
DAILY HELEN Administration
Enoxaparin Sodium 40 mg 06/07/24 18:00 06/07/24 18:21
Enoxaparin Sodium 40 Mg/0.4 Ml Syringe SC 07/05/24 17:59 40 mg
QPM HELEN Administration
Hydrochlorothiazide 25 mg 06/07/24 08:00 06/07/24 08:21
Hydrochlorothiazide 25 Mg Tablet PO 07/05/24 07:59 25 mg
DAILY HELEN Administration
Labetalol HCl 10 mg 06/07/24 01:02
Labetalol Hcl 5 Mg/1 Ml (20 Mg/4 Ml) Injection IV 07/05/24 01:01
Q6HPRN PRN
SBP > 180 or MAP > 125
Magnesium Hydroxide 30 ml 06/07/24 01:02
Milk Of Magnesia 30 Ml Cup PO 07/05/24 01:01
BIDPRN PRN
constipation
Sodium Chloride 0 flush 06/06/24 23:00
Sodium Chloride 0.9% (Flush) Syringe IV 07/04/24 22:59
PER PROTOCOL HELEN
Thiamine HCl 100 mg 06/07/24 09:00 06/07/24 11:46
Thiamine (100 Mg/Ml) 2 Ml Vial IV 06/09/24 08:01 100 mg
DAILY HELEN Administration
Valsartan 160 mg 06/07/24 08:00 06/07/24 08:22
Valsartan 160 Mg Tablet PO 07/05/24 07:59 160 mg
DAILY HELEN Administration
Home Medications
-
Home Medications
Aspir 81 81 mg PO DAILY 11/21/10
Res Q 1250 3 tab PO DAILY 11/21/10
atorvastatin 10 mg tablet 10 mg PO DAILY 11/21/10
calcium carb 133 mg-vitD3 133 unit-mag amino acid chelate 67mg capsule (Coral Calcium) 2 ea PO DAILY 11/21/10
ibuprofen 200 mg tablet 200 mg PO PRN pain 11/21/10
meloxicam 15 mg tablet 15 mg PO DAILY 11/21/10
multivit-iron 18 mg-folic acid 400 mcg-calcium 500 mg-minerals tablet (Women's Daily Formula) 1 ea PO DAILY 11/21/10
valsartan 80 mg tablet 160 mg PO DAILY 11/21/10
Tylenol 650 mg PO PRN PRN pain 12/05/10
ibuprofen-diphenhydramine citrate 200 mg-38 mg tablet (Advil PM) 0.5 tab PO HS 12/05/10
[2024-06-08] MEDS: LOW STRENGTH ASPIRIN 81 MG PO (08:59)
[2024-06-08] MEDS: THIAMINE INJECTION 100 MG IV (08:59)
[2024-06-08] MEDS: PLAVIX 75 MG PO (08:59)
[2024-06-08 09:41] LABS: Blood Urea Nitrogen 15 mg/dl (7-17); Calcium 9.4 mg/dl (8.4-10.2); Carbon Dioxide 20 mmol/L (22-30); Chloride 98 mmol/L (98-107); Estimated Creatinine Clearance 78 ml/min; Glucose 166 mg/dl (70-99); Potassium 3.2 mmol/L (3.5-5.1); Sodium 132 mmol/L (135-145); eGFR > 60.00
[2024-06-08] MEDS: ORETIC PO (10:32)
[2024-06-08] MEDS: DIOVAN PO (10:32)
--- NOTE | 2024-06-08 11:01 | CM ---
Addendum entered by Mila Watkins 06/08/24 13:43:
Patient does not qualify for [facility] at this time. Patient for discharge home with out patient therapy for OT and Speech. Patient plan is home with and requesting note from physician for return to work. Patient will call for appointment at
therapy here at per . Patient completed IMM and signed form placed on chart. CM will continue to follow for discharge planning needs.
Plan; home with outpatient therapy needs.
Original Note:
Patient seen at bedside with both patient and . PT/OT recommendation is for outpatient therapy at this time. CM reviewed options and at request sent tt to liaison about [facility]. CM will continue to follow for discharge planning needs.
Plan; home with outpatient therapy vs [facility]
[2024-06-08] MEDS: KLOR-CON 40 MEQ PO (11:43)
--- NOTE | 2024-06-08 12:03 | W.PN.HOSP.TC ---
Today's Communication/Plan
-
Discharge home today
Assessment / Plan
Assessment / Plan
Impression:
This is a 69-year-old female past history of hypertension, hyperlipidemia, presenting to the emergency department with a 1 day history of altered mental status and expressive aphasia.
MRI showed:
Acute to subacute infarcts of the left caudate nucleus, and smaller infarcts of the left gonzalez radiata and bilateral frontal lobes.
Seen by neurology.
Seen by physical therapy and Occupational Therapy.
Plan for outpatient OT.
Patient can be discharged home today
Assessment/plan
Acute CVA
Patient presented with confusion and aphasia
CT head done in the ER shows no acute finding
CTA Head: No significant arterial stenosis. No aneurysm.
CTA Neck: No significant arterial stenosis. Atherosclerotic calcifications of the bilateral carotid bifurcations/proximal ICAs with less than 30% stenosis by NASA criteria.
MRI showed:
Acute to subacute infarcts of the left caudate nucleus, and smaller infarcts of the left gonzalez radiata and bilateral frontal lobes.
Seen by neurology.
Frequent neurocheck.
Allow permissive hypertension.
Hemoglobin A1c 5.5
Fasting lipid panel shows LDL at 94.
Continue aspirin, plavix and high intensity statin
PT/OT consult.
Social service for discharge plan.
06/08
Echo shows:
Normal left ventricular size and hyperdynamic systolic function. No regional
wall motion abnormalities are seen. LV ejection fraction is 70-75% by Obwen's
method of discs. Mild concentric left ventricular hypertrophy.
Mild tricuspid regurgitation. Estimated pulmonary artery pressure of 20-25
mmHg.
No prior study available for comparison.
Seen by physical therapy and Occupational Therapy.
Plan for outpatient OT.
Patient can be discharged home today
Hypertensive urgency.
Allow permissive hypertension.
Continue current meds
Hyponatremia.
Continue to monitor
CODE STATUS: Full code
DVT prophylaxis: Lovenox
Diet: cardiac diet
Discussed with at bedside
Total time spent on today's encounter was 65 minutes which included time spent in counseling the patient/family regarding diagnosis and treatment plan as listed above, goals of care, and symptom management. Case was discussed with nursing staff,
specialists, and care coordinators/case management. All labs and imaging personally reviewed by me. Remainder the time spent in detailed review of previous records, lab data, imaging, and other medical provider documentation.
Anticipated Discharge: Today
Subjective/Interval History
-
Date of Service: June 08, 2024
Patient seen and examined at bedside, still with minimal memory issues but speech improved, discussed with bedside.
Otherwise patient denies any chest pain or shortness of breath, no abdominal pain, no nausea, no vomiting, no diarrhea or constipation.
Objective Data
-
Labs:
Laboratory Results
06/08/24
06:13
WBC 4.3 L
Hgb 12.9
Hct 36.8 L
Plt Count 219
Sodium 132 L
Potassium 3.2 L
Chloride 98
Carbon Dioxide 20 L
BUN 15
Creatinine 0.5 L
Glucose 166 H
Calcium 9.4
Vital Signs:
Vital Signs
Temp Pulse Resp BP Pulse Ox
98.1 F 87 17 149/85 97
06/08/24 11:06 06/08/24 11:06 06/08/24 11:06 06/08/24 11:06 06/08/24 11:06
I&O
06/07/24 06/08/24 06/09/24
06:59 06:59 06:59
Intake Total 1200 / 1200 2370 / 2370 900 / 900
Balance 1200 / 1200 2370 / 2370 900 / 900
Physical Exam
-
General: Well Developed, Well Nourished, No Apparent Distress and Comfortable
HEENT: Normocephalic, Atraumatic, Moist Mucous Membranes, No Ptosis, PERRLA and Nose Appears Normal
Respiratory: Clear to Auscultation and Non Labored Respirations
Cardiac: Regular Rhythm and S1/S2
Breast: Deferred by me
GI: Soft, Nontender, Nondistended and Normal Bowel Sounds
Genito-urinary: No Costovertebral Tender
Musculoskeletal: No Clubbing, No Cyanosis and No Edema
Skin: Warm
Neuro: Awake and Other (Not a fully oriented)
Psych: Calm
Data Reviewed
-
Diagnostic Radiology: Image personally visualized and interpreted and Report Reviewed by me
CT Scan: Image personally visualized and interpreted and Report Reviewed by me
Ultrasound: Image personally visualized and interpreted and Report Reviewed by me
MRI: Image personally visualized and interpreted and Report Reviewed by me
Medical Tests (Nuc Med, Echo etc): Image personally visualized and interpreted and Report Reviewed by me
Labs: Labs Reviewed by me
Old Records: Reviewed
--- NOTE | 2024-06-08 12:14 | W.DCSUMMARY ---
Addendum entered and electronically signed by Oscar Gaona MD 06/08/24 14:13:
Hypertensive urgency
Addendum entered and electronically signed by Oscar Gaona MD 06/08/24 14:13:
Hypokalemia
Original Note:
Discharge Summary
Discharge Data
Date of Admission: 06/07/24
Date of Discharge: 06/08/24
-
Pending Results: No
Hospital Course
Hospital course
This is a 69-year-old female past history of hypertension, hyperlipidemia, presenting to the emergency department with a 1 day history of altered mental status and expressive aphasia.
MRI showed:
Acute to subacute infarcts of the left caudate nucleus, and smaller infarcts of the left gonzalez radiata and bilateral frontal lobes.
Seen by neurology.
Seen by physical therapy and Occupational Therapy.
Plan for outpatient OT.
Patient can be discharged home today
During hospitalization patient [facility]
Acute CVA
Patient presented with confusion and aphasia
CT head done in the ER shows no acute finding
CTA Head: No significant arterial stenosis. No aneurysm.
CTA Neck: No significant arterial stenosis. Atherosclerotic calcifications of the bilateral carotid bifurcations/proximal ICAs with less than 30% stenosis by NASA criteria.
MRI showed:
Acute to subacute infarcts of the left caudate nucleus, and smaller infarcts of the left gonzalez radiata and bilateral frontal lobes.
Seen by neurology.
Frequent neurocheck.
Allow permissive hypertension.
Hemoglobin A1c 5.5
Fasting lipid panel shows LDL at 94.
Continue aspirin, plavix and high intensity statin
PT/OT consult.
Social service for discharge plan.
06/08
Echo shows:
Normal left ventricular size and hyperdynamic systolic function. No regional
wall motion abnormalities are seen. LV ejection fraction is 70-75% by Bowen's
method of discs. Mild concentric left ventricular hypertrophy.
Mild tricuspid regurgitation. Estimated pulmonary artery pressure of 20-25
mmHg.
No prior study available for comparison.
Seen by physical therapy and Occupational Therapy.
Plan for outpatient OT.
Patient can be discharged home today
Hypertensive urgency.
Allow permissive hypertension.
Continue current meds
Hyponatremia.
Continue to monitor
CODE STATUS: Full code
DVT prophylaxis: Lovenox
Diet: cardiac diet
Discussed with at bedside
Total time spent on today's encounter was 40 minutes which included time spent in counseling the patient/family regarding diagnosis and treatment plan as listed above, goals of care, and symptom management. Case was discussed with nursing staff,
specialists, and care coordinators/case management. All labs and imaging personally reviewed by me. Remainder the time spent in detailed review of previous records, lab data, imaging, and other medical provider documentation.
Anticipated Discharge: Today
Discharge Plan
-
Patient Disposition: Home (Routine Discharge)
Discharge Diagnosis/Procedures: Acute CVA
Diet: Low Cholesterol
Activity: As tolerated
Driving Restrictions: No driving until cleared by neurology
Bathing Restrictions: None
Other Services: OT
Referrals:
Ke Luther MD [Active] - in three to four weeks
Nik Padron MD [Active] - in three to four weeks
Nelsy Melton MD [Family Provider] -
Farooq Mcneil PSY [Specified Professional Personl] - in three to four weeks
()
Additional Discharge Medication Instructions: Increase atorvastatin to 80 mg at night and added Plavix for 21 days
Prescriptions:
New
atorvastatin 80 mg Tablet
80 mg PO QPM Qty: 30 0RF
clopidogrel 75 mg Tablet
75 mg PO DAILY Qty: 21 0RF
(DME) outpatient occupational and speech therapy
See Rx Instructions .Route .MEDSUPPLY Qty: 1 0RF
Rx Instructions:
outpatient occupational and speech therapy
3 times weekly.
Diagnosis: Acute CVA
Continued
meloxicam 15 MG tablet
15 mg PO DAILY
Aspir 81
81 mg PO DAILY
valsartan 80 MG tablet
160 mg PO DAILY
ibuprofen 200 MG tablet
200 mg PO PRN (Reason: pain)
calcium [id number] sharon [Coral Calcium] 1 EACH capsule
2 ea PO DAILY
cbphcuex-[id number]-calcium-mins [Women's Daily Formula] 1 EACH tablet
1 ea PO DAILY
Res Q 1250
3 tab PO DAILY
ibuprofen-diphenhydramine cit [Advil PM] 1 TAB tablet
0.5 tab PO HS
Tylenol 325 MG
650 mg PO PRN PRN (Reason: pain)
Discontinued
atorvastatin 10 MG tablet
10 mg PO DAILY
Discharge Orders:
Discharge Patient (As Directed); Ordered 06/08/24
Ordered By: Oscar Gaona
Discharge Date and Time
Print Language: PORTUGUESE
--- NOTE | 2024-06-08 13:20 | PN.CDI ---
CDI
- -
CDI:
Physician Documentation Request
Admit Date: 06/07/24 00:32
Dear Doctor Candelaria,
Clinical Indicators:
Patient admitted with acute CVA.
06/07 PN, 'Hypertensive urgency'
06/07 Neurology consult, 'Hypertensive emergency'
BPs on admission:
06/06/24
21:11 06/06/24
21:32
Blood pressure 210/144 194/93
Due to potentially conflicting documentation, please clarify the type and acuity of the documented hypertension:
Hypertensive Emergency - B/P is severely elevated (systolic > or = to 180 or diastolic > or = to 110) but can occur at lower levels especially in patients who did not previously have high B/P. There is usually associated organ damage. Symptoms may
include: memory loss, LOC, CVA, [place], angina, renal failure, pulmonary edema. Generally requires more aggressive treatment and a hospitalization.
Hypertensive Urgency - B/P is severely elevated (systolic > or = to 180 or diastolic > or = to 110) but there is no associated organ damage. Symptoms may include: headache, shortness of breath, nosebleeds, severe anxiety. Treatment usually consists
of addition to or adjusting of oral medications and does not generally necessitate hospitalization.
Other (please specify)
Use of terms such as suspected, likely, concern for, or probable (associated with a specific diagnosis that is being evaluated, monitored, or treated as if it exists) are acceptable and can be coded in the inpatient setting, when documented at the
time of discharge.
Thank you,
Denise Chakraborty RN BSN
CDI Specialist
available via tiger text
Please use your independent medical judgment in providing your response.
--- NOTE | 2024-06-08 13:30 | PN.CDI ---
CDI
- -
CDI:
Physician Documentation Request
Admit Date: 06/07/24 00:32
Dear Doctor Candelaria,
Clinical Indicators:
Patient admitted with acute CVA.
06/08 Potassium chloride 40 meq po x 1 ordered.
Potassium level:
06/08/24
06:13
Potassium 3.2 L
Based on the above, could you clarify in the progress notes, the appropriate diagnosis, if significant, that supports the above abnormalities and additional evaluation, monitoring and/or treatment rendered:
Hypokalemia
Abnormal lab value, clinically insignificant
Other, please specify
Use of terms such as suspected, likely, concern for, or probable (associated with a specific diagnosis that is being evaluated, monitored, or treated as if it exists) are acceptable and can be coded in the inpatient setting, when documented at the
time of discharge.
Thank you,
Denise Chakraborty RN BSN
CDI Specialist
available via tiger text
Please use your independent medical judgment in providing your response.
--- NOTE | 2024-06-08 16:13 | EEG.RPT ---
Electroencephalogram Report
Recording
Date of EE06/08/24
Type of EEG: Routine
Length of EEG recordin minutes
Done with Video Recording: Yes
Patient Status: Inpatient
Recording Conditions: Awake and Drowsy
Hyperventilation Performed: No
Photic Stimulation Performed: Yes
Report
LESS THAN 1 HOUR EEG REPORT
LESS THAN 1 HOUR EEG INTERPRETATION:
Severely abnormal EEG for age due to episode of 3/s medium amplitude rhythmic slowing which was with eye opening but without motoric association.
CLINICAL CORRELATION:
This study was suggestive of a right-hemispheric seizure. Clinical correlation is advised.
METHODS:
A 21 channel digitized electroencephalogram (EEG) was performed at the bedside. The 10/20 international system of electrode placement was used with ECG and lateral/vertical eye movements recorded. Video was recorded. Persyst quantitative EEG
analysis was performed.
ELECTROENCEPHALOGRAPHER IMPRESSION(S):
Quality of study: Good
Background
Maximum: Alpha
Amplitude: Medium
Anterior-posterior gradient unremarkable
Sleep
Drowsiness demonstrated by attenuation of the background rhythm
Hyperventilation
Not performed
Photic Stimulation
No driving
ECG
Normal sinus rhythm
ABNORMAL EEG Activity
On page 72 of the study there was an abrupt change to the study with the patient suddenly opening eyes and appearing confused. 3/s focal slowing (see below) was demonstrated lasting for approximately for 45 seconds followed by a change to a beta
frequency background and 20 seconds later alpha background.
[2024-06-08] MEDS: KEPPRA 1000 MG IV (17:03)
[2024-06-08] MEDS: LIPITOR 80 MG PO (18:40)
[2024-06-08] MEDS: LOVENOX 40 MG SC (18:40)
--- NOTE | 2024-06-08 19:46 | W.PN.UPDATE ---
Update Note
Progress Note Update
Spoke to patient's and explained probable mechanism of stroke, EEG findings and antiepileptic therapy. All questions were answered.
Gloria Sanabria M.D.
[2024-06-08] MEDS: KEPPRA 500 MG IV (20:48)
[2024-06-09 03:02] VITALS: BP 106/81
[2024-06-09 07:40] VITALS: BP 122/85
[2024-06-09] MEDS: PLAVIX 75 MG PO (09:00)
[2024-06-09] MEDS: LOW STRENGTH ASPIRIN 81 MG PO (09:00)
[2024-06-09] MEDS: ORETIC 25 MG PO (09:00)
[2024-06-09] MEDS: KEPPRA 500 MG IV (09:00)
[2024-06-09] MEDS: DIOVAN 160 MG PO (09:00)
[2024-06-09] MEDS: THIAMINE INJECTION 100 MG IV (09:01)
--- NOTE | 2024-06-09 10:08 | W.PN.NEURO.1 ---
Today's Communication / Plan
-
.
Subjective/Objective
Subjective Data
Date of Service: June 09, 2024
Neurology follow-up note.
Ms. Shaffer she reports no complaints. She is eager to go home
Routine EEG(06/08/2024) showed an electrographic seizure with right central parietal onset.
The patient was started on Keppra. No reported or documented clinical seizures.
PMH: HTN, DLP, OA, osteoporosis
PSH: L KEREN, right knee anterior cruciate ligament reconstruction
SH: , non-smoker, works at [employer], social alcohol use
FH: Unknown
All: Penicillin
ROS: Constitutional: Negative. Negative for chills, fever and unexpected weight change.
HENT: Negative for ear pain, hearing loss, tinnitus and trouble swallowing.
Eyes: Negative. Negative for photophobia, pain and visual disturbance.
Respiratory: Negative for cough, choking and shortness of breath.
Cardiovascular: Negative for chest pain, palpitations and leg swelling.
Gastrointestinal: Negative for abdominal pain and vomiting.
Endocrine: Negative. Negative for cold intolerance.
Genitourinary: Negative for dysuria, flank pain and urgency.
Musculoskeletal: Negative for back pain, gait problem, neck pain and neck stiffness.
Skin: Negative for rash.
Allergic/Immunologic: Negative. Negative for immunocompromised state.
Neurological: Positive for impaired memory.
Psychiatric/Behavioral: Negative for behavioral problems, confusion and hallucinations.
General: Well developed. In no acute distress.
Cardio: Regular rate and rhythm without murmur. Extremities are without cyanosis or edema.
Neuro:
Mental Status: Alert, oriented to self, location, month, year, president, date of . Date was incorrect, but close. Follows complex requests. No hemineglect.
Cranial Nerves: Pupils are equally round and reactive to light. EOMs full. Visual cutler full to confrontation. No ptosis. No nystagmus. Face symmetric. Normal hearing AU. The palate elevated well. SCMs and traps 5/5. Tongue midline. No
dysarthria.
Motor: Normal bulk and tone. No pronator or arm drift. Strength 5/5 throughout. No clonus.
Reflexes: Trace throughout no grasp,
Sensory: Was able to feel vibration at the toes
Coordination: No dysmetria or tremor.
Gait: deferred
Assessment and Plan:
I. 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
II. 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 A stroke in the caudate nucleus can increase the risk of post-stroke seizures, although it's less common than seizures following strokes in the cortex
III. Symptomatic electrographic seizure.
-Continue Telemetry monitoring
-Medication administration supervision
-Delegate financial decision making
-Continue aspirin 81 mg once a day and Plavix 75 mg once a day
-Continue Keppra 500 mg twice daily
-Repeat routine EEG
-Outpatient Holter monitoring and cardiology follow-up
-Continue Lipitor 80 mg once a day
-No driving. The patient showed use alternative transportation options such as public transport, rideshare services, or assistance from family and friends.
-Outpatient neurology follow-up
- Please recall neurology services any questions or concerns
I personally reviewed all radiology and labs along with past medical records pertinent to current medical problems. Total time spent in patient care is 35 minutes.
Thank you for allowing us to participate in the care of this patient. Please do not hesitate to contact us with any questions or concerns.
Objective Data
Vital Signs
Temp Pulse Resp BP Pulse Ox
36.5 C 87 16 122/85 97
06/09/24 07:40 06/09/24 07:40 06/09/24 07:40 06/09/24 07:40 06/09/24 07:40
Lab Results
06/08/24 06:13
06/08/24 06:13
PT 13.3 Sec (11.4-14.6) 06/06/24 21:56
INR 0.98 06/06/24 21:56
APTT 30.4 Sec (23.4-35.0) 06/06/24 21:56
Sodium 132 mmol/L (135-145) L 06/08/24 06:13
Potassium 3.2 mmol/L (3.5-5.1) L 06/08/24 06:13
BUN 15 mg/dl (7-17) 06/08/24 06:13
Glucose 166 mg/dl (70-99) H 06/08/24 06:13
Calcium 9.4 mg/dl (8.4-10.2) 06/08/24 06:13
LDL Cholesterol, Calc 94 mg/dl 06/07/24 06:47
Vitamin B12 861 pg/ml (239-931) 06/07/24 08:43
Ur Buprenorphine Negative (Negative) 06/06/24 22:52
Patient Allergies
penicillin G [Penicillin G] Allergy (Verified 06/06/24 21:13)
YEAST INFECTIONS
Vital Signs and Labs
-
Vital Signs and Labs:
Vital Signs
Temp Pulse Resp BP Pulse Ox
36.5 C 87 16 122/85 97
06/09/24 07:40 06/09/24 07:40 06/09/24 07:40 06/09/24 07:40 06/09/24 07:40
Lab Results
06/08/24 06:13
06/08/24 06:13
PT 13.3 Sec (11.4-14.6) 06/06/24 21:56
INR 0.98 06/06/24 21:56
APTT 30.4 Sec (23.4-35.0) 06/06/24 21:56
Sodium 132 mmol/L (135-145) L 06/08/24 06:13
Potassium 3.2 mmol/L (3.5-5.1) L 06/08/24 06:13
BUN 15 mg/dl (7-17) 06/08/24 06:13
Glucose 166 mg/dl (70-99) H 06/08/24 06:13
Calcium 9.4 mg/dl (8.4-10.2) 06/08/24 06:13
LDL Cholesterol, Calc 94 mg/dl 06/07/24 06:47
Vitamin B12 861 pg/ml (239-931) 06/07/24 08:43
Ur Buprenorphine Negative (Negative) 06/06/24 22:52
Medications
-
Medications:
Generic Name Dose Route Start Last Admin
Trade Name Freq PRN Reason Stop Dose Admin
Acetaminophen 650 mg 06/07/24 01:02
Acetaminophen 650 Mg Rectal Suppository RECTAL 07/05/24 01:01
Q4HPRN PRN
ROGER, mild pain, or temp >100.4F
Acetaminophen 650 mg 06/07/24 01:02
Acetaminophen 325 Mg Tablet PO 07/05/24 01:01
Q4HPRN PRN
ROGER, mild pain, or temp >100.4F
Aspirin 81 mg 06/07/24 08:00 06/09/24 09:00
Aspirin 81 Mg Chewable Tablet PO 07/05/24 07:59 81 mg
DAILY HELEN Administration
Atorvastatin Calcium 80 mg 06/07/24 18:00 06/08/24 18:40
Atorvastatin (Lipitor) 80 Mg Tablet PO 07/05/24 17:59 80 mg
QPM HELEN Administration
Clopidogrel Bisulfate 75 mg 06/07/24 08:00 06/09/24 09:00
Clopidogrel 75 Mg Tablet PO 07/05/24 07:59 75 mg
DAILY HELEN Administration
Enoxaparin Sodium 40 mg 06/07/24 18:00 06/08/24 18:40
Enoxaparin Sodium 40 Mg/0.4 Ml Syringe SC 07/05/24 17:59 40 mg
QPM HELEN Administration
Hydrochlorothiazide 25 mg 06/07/24 08:00 06/09/24 09:00
Hydrochlorothiazide 25 Mg Tablet PO 07/05/24 07:59 25 mg
DAILY HELEN Administration
Labetalol HCl 10 mg 06/07/24 01:02
Labetalol Hcl 5 Mg/1 Ml (20 Mg/4 Ml) Injection IV 07/05/24 01:01
Q6HPRN PRN
SBP > 180 or MAP > 125
Levetiracetam 500 mg 06/08/24 20:00 06/09/24 09:00
Levetiracetam (100 Mg/Ml) 500 Mg/5 Ml Vial IV 07/06/24 19:59 500 mg
Q12 HELEN Administration
Magnesium Hydroxide 30 ml 06/07/24 01:02
Milk Of Magnesia 30 Ml Cup PO 07/05/24 01:01
BIDPRN PRN
constipation
Sodium Chloride 0 flush 06/06/24 23:00
Sodium Chloride 0.9% (Flush) Syringe IV 07/04/24 22:59
PER PROTOCOL HELEN
Valsartan 160 mg 06/07/24 08:00 06/09/24 09:00
Valsartan 160 Mg Tablet PO 07/05/24 07:59 160 mg
DAILY HELEN Administration
Home Medications
-
Home Medications
Aspir 81 81 mg PO DAILY 11/21/10
Res Q 1250 3 tab PO DAILY 11/21/10
calcium carb 133 mg-vitD3 133 unit-mag amino acid chelate 67mg capsule (Coral Calcium) 2 ea PO DAILY 11/21/10
multivit-iron 18 mg-folic acid 400 mcg-calcium 500 mg-minerals tablet (Women's Daily Formula) 1 ea PO DAILY 11/21/10
Tylenol 650 mg PO PRN PRN pain 12/05/10
outpatient occupational and speech therapy #1 ea 06/08/24
atorvastatin 80 mg tablet 80 mg PO QPM #30 tabs 06/08/24
clopidogrel 75 mg tablet 75 mg PO DAILY #21 tabs 06/08/24
valsartan 160 mg-hydrochlorothiazide 25 mg tablet 1 tab PO DAILY #30 tabs 06/08/24
--- NOTE | 2024-06-09 10:09 | W.PN.HOSP.TC ---
Today's Communication/Plan
-
Discharge home today
Assessment / Plan
Assessment / Plan
Impression:
This is a 69-year-old female past history of hypertension, hyperlipidemia, presenting to the emergency department with a 1 day history of altered mental status and expressive aphasia.
MRI showed:
Acute to subacute infarcts of the left caudate nucleus, and smaller infarcts of the left gonzalez radiata and bilateral frontal lobes.
Seen by neurology.
Seen by physical therapy and Occupational Therapy.
Plan for outpatient OT.
06/08
EEG shows evidence of seizure.
Patient started on Keppra as per neurology.
Repeat EEG pending
Patient can be discharged home today on Keppra 500 mg twice daily
Assessment/plan
Acute CVA
Patient presented with confusion and aphasia
CT head done in the ER shows no acute finding
CTA Head: No significant arterial stenosis. No aneurysm.
CTA Neck: No significant arterial stenosis. Atherosclerotic calcifications of the bilateral carotid bifurcations/proximal ICAs with less than 30% stenosis by [employer] criteria.
MRI showed:
Acute to subacute infarcts of the left caudate nucleus, and smaller infarcts of the left gonzalez radiata and bilateral frontal lobes.
Seen by neurology.
Frequent neurocheck.
Allow permissive hypertension.
Hemoglobin A1c 5.5
Fasting lipid panel shows LDL at 94.
Continue aspirin, plavix and high intensity statin
PT/OT consult.
Social service for discharge plan.
06/08
Echo shows:
Normal left ventricular size and hyperdynamic systolic function. No regional
wall motion abnormalities are seen. LV ejection fraction is 70-75% by Bowen's
method of discs. Mild concentric left ventricular hypertrophy.
Mild tricuspid regurgitation. Estimated pulmonary artery pressure of 20-25
mmHg.
No prior study available for comparison.
Seen by physical therapy and Occupational Therapy.
Plan for outpatient OT.
Patient can be discharged home today
Seizure/new onset
EEG shows:
This study was suggestive of a right-hemispheric seizure. Clinical correlation is advised.
Discussed with neurology.
Started on Keppra 500 mg IV twice daily.
Repeat EEG pending.
Plan to be discharged on oral Keppra 500 mg twice daily
Hypertensive urgency.
Allow permissive hypertension for last 24-40.
Continue current meds
Blood pressure improved.
Hyponatremia.
Continue to monitor
CODE STATUS: Full code
DVT prophylaxis: Lovenox
Diet: cardiac diet
Discussed with at bedside
Total time spent on today's encounter was 65 minutes which included time spent in counseling the patient/family regarding diagnosis and treatment plan as listed above, goals of care, and symptom management. Case was discussed with nursing staff,
specialists, and care coordinators/case management. All labs and imaging personally reviewed by me. Remainder the time spent in detailed review of previous records, lab data, imaging, and other medical provider documentation.
Anticipated Discharge: Today
Subjective/Interval History
-
Date of Service: June 09, 2024
Patient seen and examined at bedside, denies any chest pain or shortness of breath, no abdominal pain, no nausea, no vomiting, no diarrhea or constipation.
Objective Data
-
Vital Signs:
Vital Signs
Temp Pulse Resp BP Pulse Ox
97.7 F 87 16 122/85 97
06/09/24 07:40 06/09/24 07:40 06/09/24 07:40 06/09/24 07:40 06/09/24 07:40
I&O
06/08/24 06/09/24 06/10/24
06:59 06:59 06:59
Intake Total 2370 / 2370 2850 / 2850
Balance 2370 / 2370 2850 / 2850
Physical Exam
-
General: Well Developed, Well Nourished, No Apparent Distress and Comfortable
HEENT: Normocephalic, Atraumatic, Moist Mucous Membranes, No Ptosis, PERRLA and Nose Appears Normal
Respiratory: Clear to Auscultation and Non Labored Respirations
Cardiac: Regular Rhythm and S1/S2
Breast: Deferred by me
GI: Soft, Nontender, Nondistended and Normal Bowel Sounds
Genito-urinary: No Costovertebral Tender
Musculoskeletal: No Clubbing, No Cyanosis and No Edema
Skin: Warm
Neuro: Awake and Other (Not a fully oriented)
Psych: Calm
Data Reviewed
-
Diagnostic Radiology: Image personally visualized and interpreted and Report Reviewed by me
CT Scan: Image personally visualized and interpreted and Report Reviewed by me
Ultrasound: Image personally visualized and interpreted and Report Reviewed by me
MRI: Image personally visualized and interpreted and Report Reviewed by me
Medical Tests (Nuc Med, Echo etc): Image personally visualized and interpreted and Report Reviewed by me
Labs: Labs Reviewed by me
Old Records: Reviewed
--- NOTE | 2024-06-09 10:45 | EEG.RPT ---
Electroencephalogram Report
Recording
Date of EE06/09/24
Type of EEG: Routine
Length of EEG recordin minutes
Done with Video Recording: Yes
Patient Status: Inpatient
Recording Conditions: Awake and Drowsy
Hyperventilation Performed: No
Photic Stimulation Performed: Yes
Report
LESS THAN 1 HOUR EEG REPORT
LESS THAN 1 HOUR EEG INTERPRETATION:
Unremarkable EEG for age
CLINICAL CORRELATION:
A normal EEG does not rule out a diagnosis of epilepsy. If clinical suspicion for seizure persists, a prolonged recording may be warranted.
In comparison with the study one day ago demonstrating a right-hemispheric seizure, this study was normal.
Clinical correlation is advised.
METHODS:
A 21 channel digitized electroencephalogram (EEG) was performed using the 10/20 international system of electrode placement and one-lead of ECG recorded. Video was recorded. Persyst quantitative EEG analysis was performed.
ELECTROENCEPHALOGRAPHER IMPRESSION(S):
Quality of study
Good
Background
There was an unremarkable anterior-posterior voltage gradient of alpha frequency.
With eye opening the background activity changed to a low voltage mixture of frequencies.
There were no significant asymmetries of background activity noted.
Sleep
Drowsiness present
Photic Stimulation
Produced driving symmetrically in a few of the flash frequencies
ECG
Normal sinus rhythm
--- NOTE | 2024-06-09 11:28 | W.DCSUMMARY ---
Discharge Summary
Discharge Data
Date of Admission: 06/07/24
Date of Discharge: 06/09/24
-
Pending Results: No
Hospital Course
Hospital course
This is a 69-year-old female past history of hypertension, hyperlipidemia, presenting to the emergency department with a 1 day history of altered mental status and expressive aphasia.
MRI showed:
Acute to subacute infarcts of the left caudate nucleus, and smaller infarcts of the left gonzalez radiata and bilateral frontal lobes.
Seen by neurology.
Seen by physical therapy and Occupational Therapy.
Plan for outpatient OT.
06/08
EEG shows evidence of seizure.
Patient started on Keppra as per neurology.
Repeat EEG pending
Patient can be discharged home today on Keppra 500 mg twice daily
During hospitalization patient was treated from [facility]
Acute CVA
Patient presented with confusion and aphasia
CT head done in the ER shows no acute finding
CTA Head: No significant arterial stenosis. No aneurysm.
CTA Neck: No significant arterial stenosis. Atherosclerotic calcifications of the bilateral carotid bifurcations/proximal ICAs with less than 30% stenosis by NASA criteria.
MRI showed:
Acute to subacute infarcts of the left caudate nucleus, and smaller infarcts of the left gonzalez radiata and bilateral frontal lobes.
Seen by neurology.
Frequent neurocheck.
Allow permissive hypertension.
Hemoglobin A1c 5.5
Fasting lipid panel shows LDL at 94.
Continue aspirin, plavix and high intensity statin
PT/OT consult.
Social service for discharge plan.
06/08
Echo shows:
Normal left ventricular size and hyperdynamic systolic function. No regional
wall motion abnormalities are seen. LV ejection fraction is 70-75% by Bowen's
method of discs. Mild concentric left ventricular hypertrophy.
Mild tricuspid regurgitation. Estimated pulmonary artery pressure of 20-25
mmHg.
No prior study available for comparison.
Seen by physical therapy and Occupational Therapy.
Plan for outpatient OT.
Patient can be discharged home today
Seizure/new onset
EEG shows:
This study was suggestive of a right-hemispheric seizure. Clinical correlation is advised.
Discussed with neurology.
Started on Keppra 500 mg IV twice daily.
Repeat EEG shows:
A normal EEG does not rule out a diagnosis of epilepsy. If clinical suspicion for seizure persists, a prolonged recording may be warranted.
In comparison with the study one day ago demonstrating a right-hemispheric seizure, this study was normal.
Clinical correlation is advised
Plan to be discharged on oral Keppra 500 mg twice daily
Hypertensive urgency.
Allow permissive hypertension for last 24-40.
Continue current meds
Blood pressure improved.
Hyponatremia.
Continue to monitor
CODE STATUS: Full code
DVT prophylaxis: Lovenox
Diet: cardiac diet
Discussed with at bedside
Total time spent on today's encounter was 40 minutes which included time spent in counseling the patient/family regarding diagnosis and treatment plan as listed above, goals of care, and symptom management. Case was discussed with nursing staff,
specialists, and care coordinators/case management. All labs and imaging personally reviewed by me. Remainder the time spent in detailed review of previous records, lab data, imaging, and other medical provider documentation.
Anticipated Discharge: Today
Discharge Plan
-
Patient Disposition: Home (Routine Discharge)
Discharge Diagnosis/Procedures: Acute CVA
Seizure
Diet: Low Cholesterol
Activity: As tolerated
Driving Restrictions: No driving until cleared by neurology
Bathing Restrictions: None
Other Services: OT
Stand Alone Forms: Return to Work
Referrals:
Ke Luther MD [Active] - in three to four weeks
Nelsy Melton MD [Family Provider] -
Farooq Mcneil PSY [Specified Professional Person[facility]] - in three to four weeks
()
Additional Discharge Medication Instructions: Increase atorvastatin to 80 mg at night and added Plavix for 21 days
Prescriptions:
New
atorvastatin 80 mg Tablet
80 mg PO QPM Qty: 30 0RF
clopidogrel 75 mg Tablet
75 mg PO DAILY Qty: 21 0RF
(DME) outpatient occupational and speech therapy
See Rx Instructions .Route .MEDSUPPLY Qty: 1 0RF
Rx Instructions:
outpatient occupational and speech therapy
3 times weekly.
Diagnosis: Acute CVA
valsartan-hydrochlorothiazide 160-25 mg tablet
1 tab PO DAILY Qty: 30 0RF
levetiracetam [Keppra] 500 mg tablet
500 mg PO BID Qty: 60 0RF
Continued
Aspir 81
81 mg PO DAILY
Coral Calcium 1 EACH capsule
2 ea PO DAILY
Women's Daily Formula 1 EACH tablet
1 ea PO DAILY
Res Q 1250
3 tab PO DAILY
Tylenol 325 MG
650 mg PO PRN PRN (Reason: pain)
Discontinued
meloxicam 15 MG tablet
15 mg PO DAILY
atorvastatin 10 MG tablet
10 mg PO DAILY
valsartan 80 MG tablet
160 mg PO DAILY
ibuprofen 200 MG tablet
200 mg PO PRN (Reason: pain)
Advil PM 1 TAB tablet
0.5 tab PO HS
Discharge Orders:
Discharge Patient (As Directed); Ordered 06/09/24
Ordered By: Oscar Gaona
Discharge Date and Time
Print Language: CZECH
--- NOTE | 2024-06-09 11:56 | CM ---
Reviewed the chart notes and spoke with the patient at the bedside. Patient is for discharge to home today with outpatient therapy. Patient's spouse will provide transportation. CM continues to be available to patient/family and is monitoring
medical plan for needs at discharge.
Plan: Discharge to home today.
[2024-06-09 12:51] VITALS: BP 118/78
[2024-06-09 19:57] LABS: Vitamin B1, Whole Blood 323 nmol/L (70-180)
== END 2024-06-09 15:44 | disposition home or self-care (01) | DRG 65 ==
LOC: 2 SOUTH 00:32
PROVIDERS: ADMITTING PHYSICIAN Internal Medicine; ATTENDING PHYSICIAN General Practice; EMERGENCY PHYSICIAN Student in an Organized Health Care Education/Training Program; FAMILY PHYSICIAN Family Medicine; OTHER PHYSICIAN Psychiatry & Neurology Neurology; PRIMARYCARE PHYSICIAN Family Medicine
DX: I63.9 Cerebral infarction, unspecified (principal); E87.1 Hypo-osmolality and hyponatremia; E78.00 Pure hypercholesterolemia, unspecified; I10 Essential (primary) hypertension; E87.6 Hypokalemia; R56.9 Unspecified convulsions; I16.0 Hypertensive urgency; M81.0 Age-related osteoporosis without current pathological fracture; R29.702 NIHSS score 2; R47.01 Aphasia; Z96.642 Presence of left artificial hip joint; Z79.82 Long term (current) use of aspirin
CPT/HCPCS: 70450; 70496; 70498; 70551; 80048; 80053; 80061; 80306; 82077; 82607; 82746; 83036; 84425; 84443; 85025; 85027; 85610; 85652; 85730; 86140; 92523; 92610; 93005; 93306; 95816; 97129; 97162; 97166; 97535; 99291; Q9967

== ENCOUNTER 2024-06-23 06:22 | Outpatient (RCR) | payer BC, SELFPAY | END 2024-06-23 23:59 | disposition home or self-care (01) | LOC: ROT 06:22 | PROVIDERS: ATTENDING PHYSICIAN Family Medicine | DX: I69.314 Frontal lobe and executive function deficit following cerebral infarction (principal); I69.318 Other symptoms and signs involving cognitive functions following cerebral infarction; I69.311 Memory deficit following cerebral infarction; I63.9 Cerebral infarction, unspecified; I69.320 Aphasia following cerebral infarction; I69.398 Other sequelae of cerebral infarction; Z73.6 Limitation of activities due to disability | CPT/HCPCS: 96125; 97129; 97130; 97167; 97537 ==

== ENCOUNTER 2024-07-22 13:33 | Outpatient (RCR) | payer BC, SELFPAY | END 2024-07-22 23:59 | disposition home or self-care (01) | LOC: ROT 13:33 | PROVIDERS: ATTENDING PHYSICIAN Family Medicine | DX: I69.314 Frontal lobe and executive function deficit following cerebral infarction (principal); I69.318 Other symptoms and signs involving cognitive functions following cerebral infarction; I69.311 Memory deficit following cerebral infarction; I63.9 Cerebral infarction, unspecified; I69.320 Aphasia following cerebral infarction; Z73.6 Limitation of activities due to disability | CPT/HCPCS: 97129; 97130; 97530; 97535; 97537 ==

== ENCOUNTER 2024-08-02 07:06 | Outpatient (RCR) | payer BC, SELFPAY | END 2024-08-02 23:59 | disposition home or self-care (01) | LOC: ROT 07:06 | PROVIDERS: ATTENDING PHYSICIAN Family Medicine | DX: I69.314 Frontal lobe and executive function deficit following cerebral infarction (principal); I69.318 Other symptoms and signs involving cognitive functions following cerebral infarction; I69.311 Memory deficit following cerebral infarction; I69.320 Aphasia following cerebral infarction; Z73.6 Limitation of activities due to disability; I63.9 Cerebral infarction, unspecified | CPT/HCPCS: 97129; 97130; 97530; 97537 ==

== ENCOUNTER 2024-08-06 12:42 | Inpatient (IN) | payer BC, MEDICARE, SELFPAY ==
[2024-08-06] VITALS (71 sets, daily range): BP systolic 106–198; BP diastolic 58–112; BMI 23.3; BMI 23.1
[2024-08-06 11:09] LABS: Glucose - Point of Care 162 mg/dl (70-99)
--- NOTE | 2024-08-06 11:12 | ED.CVA ---
History of Present Illness
General
Chief Complaint: CVA/TIA Symptoms
Source: patient, records and ambulance crew
Exam Limitations: clinical condition
Time Seen by Provider: 08/06/24 11:08
Nursing documentation reviewed up to this point in time: agreed with
Onset of Stroke Symptoms
Onset of symptoms known: No
Time pt last seen normal is known: Yes
Date last time pt seen normal: 08/05/24
History of Present Illness
History of Present Illness:
69-year-old female with a past medical history of hypertension, hyperlipidemia, prior stroke who presents to the emergency room via EMS for evaluation of speech disturbance. Of note patient was admitted to this hospital 06/07 until 06/09 for acute
CVA�at that time presented with confusion and expressive aphasia. Her MRI showed acute infarct left caudate nucleus and small infarcts in the gonzalez radiata on the left as well as the frontal lobes. Apparently during admission she also had an EEG
which showed some evidence of seizure activity and was started on Keppra. She presents today with expressive aphasia�it sounds like she was last seen normal before bed last night and this morning woke up with speech disturbance and EMS was called
to bring her to the hospital. Patient is very limited as a historian due to significant expressive aphasia.
Update: is at bedside he confirmed timeline that patient was at baseline last night and woke up this morning with significant aphasia. Aphasia actually has generally improved since hospital arrival when compared to this morning when
says that she could not speak at all. Only other pertinent recent history is apparently patient is currently on Augmentin to treat pneumonia that was diagnosed 2 days ago by her primary doctor.
Review of Systems
Review of Systems
Unable to obtain full review of systems at this time due to: due to acuity
All Other Systems: Not applicable
Phy Exam
Physical Exam
Physical Exam:
General: Awake, alert, somewhat anxious
Head: Normocephalic, atraumatic
Eyes: Conjunctiva normal, EOMI, pupils equal round reactive to light bilaterally
Throat: Airway intact, handling secretions
Neck: Trachea midline, supple without meningismus
Lungs: Clear to auscultation bilaterally, no wheezing, rales, rhonchi
Heart: Regular rate and rhythm, no murmurs, gallops, or rubs
Abd: Soft, non distended, nontender
Neuro: Cranial nerves intact 2 through 12, significant expressive aphasia, motor and sensory intact in all extremities
Skin: no rash
Extremities: No edema in extremities, equal pulses in all extremities
Scores
NIH Stroke Score
Level of Consciousness: 0 - Alert
LOC Questions: 1-Answers one correctly
LOC Commands: 0-Performs both correctly
Best Horizontal Gaze: 0-Normal
Visual Pathak: 0=Normal, no visual loss
Facial Palsy: 0=Normal, symmetrical
Motor - Right Arm: 0=No drift 10 seconds
Motor - Left Arm: 0=No drift 10 seconds
Motor - Right Le-No drift 5 seconds
Motor - Left Le-No drift 5 seconds
Limb Ataxia: 0-Absent
Sensation: 0-Normal
Best Language: 2-Severe aphasia
Dysarthria: 0-Normal
Extinction and Inattention: 0-No abnormality
NIH Total Score:: 3
Thrombolytic Contraindication
Inclusion and Exclusion criteria reviewed: Yes
Reasons for NON-Tx with Thrombolytics ABSOLUTE Exclusions: Greater than 4.5 hrs from onset of sxs
Heart Failure Risk
Heart Failure Risk Score: Not Applicable
Heart Score for Chest Pain Patients
STEMI patient?: Not applicable
Withdrawal Assessment of Alcohol
Withdrawal Assessment Completed?: Not applicable
Course
Orders/Labs/Results
Orders:
Orders
08/06/24 11:07
Electrocardiogram (*1) Urgent
Reason for Study: Other
Other Reason for Exam: Possible Stroke
Bedside Glucose- Treatment ONCE
Cardiac Monitoring- Treatment ONCE
IV Insert/Care/Rem.- Treatment PRN
Urinalysis Reflex To Culture Urgent
Date Specimen was Collected: 08/06/24
Time Specimen was Collected: 11:08
Vital Signs As Directed
Frequency: Other
Weight As Directed
Frequency: Once
Comment: ZERO STRETCHER SCALE FOR ACCURATE WEIGHT
O2 Therapy [RESP] Urgent
Titrate/Wean O2 to maintain O2 sat greater than (%): 93
Special Instructions: MAINTAIN CONTINUOUS O2 SATS > OR = 93%
08/06/24 11:08
CT HEAD STROKE ALERT W/o Cont Stat
Comment:
Reason For Exam: stroke alert
CT HEAD/NECK ANG STROKE ALERT Stat
Comment:
Reason For Exam: stroke alert
EKG- Treatment ONCE
08/06/24 11:17
CT BRAIN PERF STROKE ALERT Urgent
Comment:
Reason For Exam: aphasia
08/06/24 11:37
Tenecteplase [Tnkase] 17 mg Syringe [Syringe Non-Pump] 0 ml IV NOW
Provider explained risk/benefits to patient &/or caregiver?: Yes
08/06/24 11:42
Complete Blood Count/With Diff Urgent
Comprehensive Metabolic Panel Urgent
PTT Urgent
Prothrombin Time Urgent
Troponin I Urgent
08/06/24 11:45
Labetalol HCl [Trandate] 5 mg IV NOW STA
08/06/24 11:49
Labetalol HCl [Trandate] 20 mg .ROUTE .STK-MED ONE
08/06/24 11:58
NEUROLOGY CONSULT Urgent
Consulting Provider: Ke Luther
Was physician already notified: Yes
08/06/24 12:01
DIETARY IP CONSULT Routine
Reason for Consult: stroke
Speech Screening from [facility] Routine
08/06/24 12:04
CR Chest Portable - 1 View Urgent
Comment:
Reason For Exam: cough
Reason Study Needs to be Portable: Unable to Transport
Abnormal Lab Results
08/06/24 08/06/24
11:08 11:42
RBC 3.76 L 10^6/uL
(4.20-5.40)
Hgb 11.5 L g/dL
(12.0-16.0)
Hct 32.2 L %
(37.0-47.0)
Plt Count 431 H 10^3/uL
(130-400)
Absolute Monos (auto) 1.0 H 10^3/uL
(0.1-0.6)
Monocytes % 11.8 H %
(1.7-9.3)
Sodium 124 L mmol/L
(135-145)
Potassium 3.3 L mmol/L
(3.5-5.1)
Chloride 90 L mmol/L
(98-107)
Creatinine 0.5 L mg/dL
(0.6-1.0)
Glucose 137 H mg/dl
(70-99)
ALT 50 H U/L
(0-35)
Total Protein 6.0 L g/dl
(6.3-8.2)
Albumin 3.3 L g/dl
(3.5-5.0)
POC Glucose 162 H mg/dl
(70-99)
08/06/24 11:42
08/06/24 11:42
Vital Signs
Initial and Last Documented VS:
Initial Vital Signs
BP
175/87
08/06/24 11:39
Last Documented Vital Signs
Temp Pulse Resp BP Pulse Ox
36.5 C 83 12 152/93 97
08/06/24 11:50 08/06/24 12:13 08/06/24 12:13 08/06/24 12:13 08/06/24 12:06
MDM/Problems Addressed
Differential Diagnosis Includes:
Ischemic CVA, hemorrhagic CVA/hemorrhagic conversion, recrudescence of old stroke, seizure
MDM/Problems Addressed:
69-year-old female presents with speech disturbance�last normal before bed last night. She had a stroke 2 months ago with similar presentation. Vitals and exam as above. Stroke alert called on arrival. Neurology at bedside for assessment. Take
for CT head, CTA head and neck. Will send typical labs, EKG. Monitor very closely reassess after the above.
CT results reviewed in real-time with neurology and radiology�patient has left M2 occlusion just past branch point on CTA. Large MCA penumbra. No core by perfusion. Patient did have a stroke 2 months ago but strokes are very small�discussed with
neurology regarding risk/benefits of tenecteplase in consultation with patient and her �neurology feels that benefit of tenecteplase outweighs risk in this case and recommended proceeding with treatment, patient and family agreeable.
Critical care alert activated to facilitate ICU admission after treating with tenecteplase. Pharmacy notified. She does have some mild hypertension we will treat with labetalol. Discussed potential of IAT�based on location of thrombus neurology
says no benefit for IAT in this case.
Case discussed with hospitalist, clinical resource coordinator to facilitate admission.
Chronic conditions affecting care:
Hypertension
Acute Exacerbation and/or Progression of Chronic Illness:
Acute hypertensive treated with labetalol
Acute Exacerbation and/or Progression of Chronic Illness: HTN
*Radiology
Radiology exam reviewed: preliminary read by ED provider and radiology read reviewed
*Pulse Oximetry
Patient hypoxic: no
*EKG
Interpreted by ED Provider?: Yes
Heart Rate: 98
Rate: normal
Rhythm: sinus
[place]: normal axis
Interval: normal interval
QRS Pattern: normal QRS
Ischemia: no ischemia
*Critical Care Note
Total Time (30-74mins, 75-104mins- exclusive of procedures): 47
comment:
Critical care statement: A total of 47 minutes of critical care time was provided for this patient. This includes management of unstable vital signs, evaluation of the patient at bedside, frequent reassessment, discussion with
consultants/hospitalist, and review of pertinent medical records. This time was separate from time utilized to perform any aforementioned documented procedures
Data Reviewed
Review of Other/Old Records Reveals: Labs and Records
Source: patient, records and ambulance crew
Patient Management
Discussion with other providers: Hospitalist (Discussed with hospitalist), Assistant Professor Of Mathematics (Discussed with neurology, discussed with clinical resource coordinator) and Radiologist (Discussed with radiologist)
Escalation/DeEscalation of care consider admission/obs:
Admission indicated
ED Attending Note
-
Portions of this chart may have been created with voice recognition software.� Occasional wrong word or��sound alike� substitutions may have occurred due to the inherent limitations of voice recognition software.
Discharge Plan
Departure
Patient Disposition: Admit
Date of Disposition: 08/06/24
Time of Disposition: 11:56
Admit to doctor: Nuvia
Presentation/result/management discussed w/ accepting MD/DO: Hospitalist
Discharge Problem:
Acute CVA (cerebrovascular accident)
Prescriptions:
No Action
Women's Daily Formula 1 EACH tablet
1 ea PO DAILY
atorvastatin 80 mg Tablet
80 mg PO QPM Qty: 30 0RF
clopidogrel 75 mg Tablet
75 mg PO DAILY Qty: 21 0RF
(DME) outpatient occupational and speech therapy
See Rx Instructions .Route .MEDSUPPLY Qty: 1 0RF
Rx Instructions:
outpatient occupational and speech therapy
3 times weekly.
Diagnosis: Acute CVA
levetiracetam [Keppra] 500 mg tablet
500 mg PO BID Qty: 60 0RF
prednisone 10 mg tablet
10 mg PO DAILY
Patient Comments:
started 08/03
azithromycin 250 mg tablet
250 mg PO DAILY
Patient Comments:
started 08/03
benzonatate 100 mg capsule
100 mg PO TIDPRN PRN (Reason: cough)
cholecalciferol (vitamin D3) [Vitamin D3] 10 mcg (400 unit) Tablet
10 mcg PO DAILY
amoxicillin-pot clavulanate 875-125 mg tablet
1 tab PO BID
valsartan-hydrochlorothiazide 320-25 mg tablet
1 tab PO DAILY
Interventions
Interventions:
*General Assessment Last Done: 08/06/24 11:47
ED- Pulmonary Assessment Last Done: 08/06/24 12:06
ED- Neurological Assessment Last Done: 08/06/24 11:44
ED- Cardiac Assessment Last Done: 08/06/24 12:06
ED Swallowing Screen Last Done: 08/06/24 12:06
Discharge Date and Time
Print Language: GAMBIAN
--- NOTE | 2024-08-06 11:43 | CON.NEURO4 ---
Addendum entered and electronically signed by Ke Luther MD 08/06/24 13:00:
Studies reviewed.
I have personally examined the patient. I reviewed and agree with the ELECTRIC ORGAN INSPECTOR AND REPAIRER's Note.
My addenda:
Awake, alert, interactive. No acute distress.
Speech hesitant with missed naming and mild difficulty with [employer].
Follows 2-step requests w/o difficulty. No tremor.
Extra-ocular movements grossly intact.
Facial movements full and symmetric. Hearing intact to normal conversational volume.
Normal UE movements bilaterally.
Neck: full ROM.
Chest: no dyspnea
Heart: no JVD
Ext: (-) Clubbing, (-) Cyanosis, (-) Edema
IMPRESSIONS/RECOMMENDATIONS:
Abrupt onset of worsening aphasia with recent multi lateral and lobar stroke
Differential diagnosis for the patient's current symptoms includes acute ischemic stroke potentially due to atrial fibrillation producing emboli, and suggested by CT of head perfusion testing.
There is evidence by CTA of the head of a proximal M2 occlusion. Unfortunately, most recent data suggest that attempts to remove a clot from the proximal M2 location is equal to medical care
Recommendations:
� administer IV Tenecteplase (TNK) per protocol urgently while keeping patient's blood pressure to a goal of systolic less than 185 and diastolic less than 110 mmHg during infusion of TNK
� place the patient in medical ICU
� goal blood pressure over the next 24 hours would be less than 180/105 mmHg
� Can check MRI of the brain within 22-32 hours of TNK without contrast for localization of the stroke
� hold all antiplatelets, OAC meds, DOAC meds, heparinoids for next 24 hours
� Continue atorvastatin 80 mg at bedtime
� goal blood glucose levels for patient would be less than 180 mg/dL
� Speech, PT, OT evaluations needed
� DVT prophylaxis with sequential compression devices over next 24 hours, can be started on Enoxaparin subcutaneous for DVT prophylaxis beginning 24 hours after TNK provision.
� medical educational materials will be provided
� check an echocardiogram
Outpatient implantable radiographer cardiac catheterization is warranted
Total Critical Care Time= 40 minutes.
The neurological system is affected and the action required by me to prevent further deterioration or potential was control over the item listed first in the Impressions and Recommendations section of this note.
I was present and personally examined the patient. I discussed patient care with other professional health care providers.
Also discussed with family.
Will continue to follow patient.
Original Note:
Documented by User: Vale Zaman NP 08/06/24 12:34
Consultation - Neurology 4
-
CONSULTING PHYSICIAN: Ke Lutehr MD
REFERRING PHYSICIAN: ER/Dr. Nava
DICTATED BY: DANIEL Morrison
DATE/TIME OF REQUEST: 08/06/24
DATE/TIME OF CONSULTATION: 08/06/24
Reason for Consultation: Stroke Alert
History of Present Illness:
This is a 69-year-old right-handed female who has presented to the hospital with report of aphasia and gait ataxia. Patient was recently hospitalized at from 06/07/24-06/09/24 with mild aphasia and confusion. She was not a candidate for TNK due to
unclear time of symptom onset. MRI brain on 06/07/24 demonstrated small embolic appearing ischemic infarcts in the left caudate nucleus, left gonzalez radiata, and bilateral frontal lobes. She completed 21 days of DAPT with aspirin and clopidogrel and
has continued on clopidogrel 75mg monotherapy since. EEG on 06/08/24 was severely abnormal due to episode of 3/s medium amplitude rhythmic slowing which was with eye opening but without motoric association; the study was suggestive of a
right-hemispheric seizure and she was started on levetiracetam 500mg BID. TTE was unremarkable. It was suggested she follow-up with Cardiology as an outpatient for LO and cardiac monitoring; she couldn't get an appointment until September. Patient has
not been driving due to seizure restrictions but had otherwise returned to her baseline with the exception of fatigue. Her reports that she was diagnosed with pneumonia two days ago is taking Augmentin, Zithromax, and prednisone.
The patient went to bed in her usual state last night (08/05/24) around 2200. This morning (08/06/24), she woke up around 0930 and her noted that she could not speak at all and her gait was off-balance, prompting him to call 911. On arrival
to the hospital she was able to speak but there is still severe aphasia. NIHSS is 3 for severe aphasia and inability to answer to state her age. CT head, CTA head/neck, and CT perfusion were obtained and demonstrate a focal calcification of the
proximal left m2 middle cerebral artery with a large ischemic penumbra and no core infarct. TNK was administered per protocol despite having an ischemic stroke in the past 90 days; prior infarcts are small in size and benefits of TNK are felt to
outweigh the risks. Discussed risks/benefits with spouse who was in agreement. She is not a candidate for IAT due to LVO being distal. Patient denies any headache, dizziness, numbness, weakness, chest pain, and palpitations.
Past Medical History: Small embolic appearing ischemic infarcts in the left caudate nucleus, left gonzalez radiata, and bilateral frontal lobes in May 2024, HTN, HLD, osteoarthritis, osteoporosis
Surgical History: L KEREN, R knee ACL reconstruction
Family History: Reviewed and noncontributory.
Social History: Daily alcohol. Denies tobacco and illicit drug use.
Allergies: Penicillin.
Home Medications: See below.
Review of Symptoms:
Patient denies any fever, headache, chest pain, shortness of breath, GI or symptoms.
�Per the HPI.�All systems are reviewed negative except above.
Physical Exam:
The patient is afebrile, abdomen is nondistended, breathing is unlabored, skin is warm and dry, no edema.
NIH Stroke Scale:
I performed the NIH stroke scale on the patient on 08/06/24 at 1130. The patient scored 3 points on the NIH stroke scale assessment, which were assigned as follows: See below.
Neurologic Examination:
The patient is awake, alert and oriented x 3 with choices, incorrect words initially due to aphasia. She is able to follow commands and can answer some questions appropriately. There is severe aphasia. No dysarthria. On cranial nerve assessment,
pupils are 3 mm bilateral, round and reactive to light and accommodation. Visual pathak are full. Extraocular movements are intact. Facial sensations are intact and bilaterally symmetrical, there is no facial asymmetry. Hearing is diminished
bilaterally to normal conversation volume. Tongue palate and uvula are midline. Sternocleidomastoid strengths are full bilaterally. Motor strengths are 5/5 bilateral upper and lower extremities on medical research [place] scale. There is no drift or
involuntary movement noted. Deep tendon reflexes are 2+ bilateral upper and lower extremities and Babinski is absent bilaterally. There was no extinction noted on double simultaneous stimulation. Coordination is intact by finger to nose bilaterally.
Lab Results: See below.
Neuro Imaging:
1. CT Head 08/06/24: New calcification near the anterior genu of the left middle cerebral artery, suspicious for calcified embolus. Subtle decreased density involving the left anterior insula, suspicious for acute to subacute infarction. ASPECT
score: 9.
2. CTA Head/Neck 08/06/24: Focal calcification involving the left middle cerebral artery, within the superior division just past the bifurcation. This would be within the proximal M2 portion of the left middle cerebral artery. Hypoplastic A1 segment
of the right anterior cerebral artery. Calcific atherosclerotic disease, with no evidence for hemodynamically significant stenosis of the carotid bulbs or proximal internal carotid arteries bilaterally. Dominant left vertebral artery with smaller
caliber right vertebral artery. No significant narrowing of the vertebral or basilar arteries.
3. CT Perfusion 08/06/24: 26cc ischemic penumbra, 0 ischemic core.
Differentials for the patient's presentation include:
1. Acute L MCA ischemic stroke in the setting of a left M2 focal calcification; etiology of recurrent stroke is likely cardioembolic.
2. HTN.
3. Pneumonia.
Patient has the following risk factors for their symptoms: HTN, age, infection
IV Tenecteplase/IAT candidacy: TNK was administered per protocol despite having an ischemic stroke in the past 90 days; prior infarcts are small in size and benefits of TNK are felt to outweigh the risks. She is not a candidate for IAT due to LVO
being distal.
Recommendations:
� administer IV Tenecteplase (TNK) per protocol urgently while keeping patient's blood pressure to a goal of systolic less than 185 and diastolic less than 110 mmHg during infusion of TNK
� place the patient in medical ICU
� goal blood pressure over the next 24 hours would be less than 180/105 mmHg
� check MRI of the brain within 22-32 hours of TNK without contrast for localization of the stroke
� hold all antiplatelets, OAC meds, DOAC meds, heparinoids for next 24 hours
� Patient will need Cardiology evaluation with consideration for LO and ILR.
� LDL goal is <70. Continue home atorvastatin 80 mg at bedtime when patient is able to take PO
� goal blood glucose levels for patient would be less than 180 mg/dL
Continue levetiracetam 500mg q12hrs
� Speech, PT, OT evaluations needed
� Physiatry consultation warranted
� DVT prophylaxis with sequential compression devices over next 24 hours, can be started on Enoxaparin subcutaneous for DVT prophylaxis beginning 24 hours after TNK provision.
� medical educational materials will be provided
We will follow.
Discussed patient care with: Dr. Luther, Dr. Nava, the patient, patient's spouse
Vital Signs and Labs
-
Vital Signs and Labs:
Vital Signs
Temp Pulse Resp BP Pulse Ox
97.7 F 91 16 167/85 95
08/06/24 11:50 08/06/24 12:00 08/06/24 12:00 08/06/24 11:58 08/06/24 12:00
Lab Results
08/06/24 11:42
Medications
-
Home Medications
�Medication �Instructions �Recorded
Aspir 81 81 mg PO DAILY 11/21/10
Res Q 1250 3 tab PO DAILY 11/21/10
calcium carb 133 mg-vitD3 133 2 ea PO DAILY 11/21/10
unit-mag amino acid chelate 67mg
capsule (Coral Calcium)
multivit-iron 18 mg-folic acid 400 1 ea PO DAILY 11/21/10
mcg-calcium 500 mg-minerals tablet
(Women's Daily Formula)
Tylenol 650 mg PO PRN PRN pain 12/05/10
outpatient occupational and #1 ea 06/08/24
speech therapy
atorvastatin 80 mg tablet 80 mg PO QPM #30 tabs 06/08/24
clopidogrel 75 mg tablet 75 mg PO DAILY #21 tabs 06/08/24
valsartan 160 1 tab PO DAILY #30 tabs 06/08/24
mg-hydrochlorothiazide 25 mg tablet
levetiracetam 500 mg tablet 500 mg PO BID #60 tabs 06/09/24
(Keppra)
NIH Stroke Score
Subsequent NIH Scale
Date of Subsequent NIH Scale: 08/06/24
Time of Subsequent NIH Scale: 11:30
NIH Stroke Score
Level of Consciousness: 0 - Alert
LOC Questions: 1-Answers one correctly
LOC Commands: 0-Performs both correctly
Best Horizontal Gaze: 0-Normal
Visual Pathak: 0=Normal, no visual loss
Facial Palsy: 0=Normal, symmetrical
Motor - Right Arm: 0=No drift 10 seconds
Motor - Left Arm: 0=No drift 10 seconds
Motor - Right Le-No drift 5 seconds
Motor - Left Le-No drift 5 seconds
Limb Ataxia: 0-Absent
Sensation: 0-Normal
Best Language: 2-Severe aphasia
Dysarthria: 0-Normal
Extinction and Inattention: 0-No abnormality
NIH Total Score:: 3
Modified [place] (mRS) Score
Modified [place] Scale (mRS): Moderate disability. Requires some help, able to walk unassisted.
Score: 3
Alteplase Contraindication
Inclusion and Exclusion criteria reviewed: Yes

Documented by User: Ke Luther MD 08/06/24 12:55
NIH Stroke Score
NIH Stroke Score
NIH Total Score:: 3
Modified [place] (mRS) Score
Score: 3
[2024-08-06] MEDS: TRANDATE 5 MG IV (11:50)
[2024-08-06] MEDS: TNKASE 3.4 MG IV (11:55)
[2024-08-06 11:56] LABS: % Basophils 0.1 % (0-2); % Immature Granulocytes 0.5 % (0-0.5); % Lymphocytes 23.5 % (20.5-51.1); % Monocytes 11.8 % (1.7-9.3); % Neutrophils 64.1 % (42.2-75.2); Absolute Lymphocytes 1.9 10^3/uL (1.2-3.4); Absolute Neutrophils 5.1 10^3/uL (1.4-6.5); Hematocrit 32.2 % (37.0-47.0); Hemoglobin 11.5 g/dL (12.0-16.0); Mean Corp Hgb Conc. 35.7 g/dL (33.0-37.0); Mean Corpuscular Hgb 30.6 pg (27.0-31.0); Mean Corpuscular Volume 85.6 fL (81.0-99.0); Mean Platelet Volume 8.3 fL (7.4-10.4); Nucleated Red Blood Cells % 0 %; Platelet Count 431 10^3/uL (130-400); Red Blood Cell Count 3.76 10^6/uL (4.20-5.40); Red Cell Dist. Width 11.9 % (11.5-14.5)
[2024-08-06 12:03] LABS: INR 1.08; PT 14.4 Sec (11.4-14.6)
--- NOTE | 2024-08-06 12:03 | HPS.HSE ---
Family Physician
-
Family Physician: Abby Hernandez, DO
Chief Complaint
-
expressive aphasia
History of Present Illness
69-year-old female with a past medical history of hypertension, hyperlipidemia, prior stroke who presents to the emergency room via EMS for evaluation of speech disturbance. patient was not able to express her thoughts. denied blurry vision,
numbness, tingling. denied UE and LE weakness. denied ROGER, dizzy or syncope. denied fever, chills, chest pain, sob. denied abdominal pain,n,v,d. denied dysuria or hematuria.
Of note patient was admitted to this hospital 06/07 until 06/09 for acute CVA�at that time presented with confusion and expressive aphasia. Her MRI showed acute infarct left caudate nucleus and small infarcts in the gonzalez radiata on the left as
well as the frontal lobes. Apparently during admission she also had an EEG which showed some evidence of seizure activity and was started on Keppra. patient was sent home on plavix.
she was noted to have CVA. admitting for further managment
Medical History
Past Medical History
Past Medical History: Reports Other
Additional Past Medical History:
Hypercholesterolemia
Hypertension
Osteoarthritis
Past Surgical History: Reports Other
Additional Past Surgical History:
Left hip replacement
Social History
Tobacco: Non-smoker
Alcohol: Occasional
Drug: None
Personal:
Living: With Family
Family History
Family History: Not pertinent
Allergies / Home Medications
Allergies reflects when Allergies were last updated in [facility]
Home Medications with original date entered in [facility]
Allergy/Medication List:
Allergies
Allergy/AdvReac Type Severity Reaction Status Date / Time
penicillin G (Penicillin G) Allergy YEAST Verified 06/06/24 21:13
INFECTIONS
Home Medications
multivit-iron 18 mg-folic acid 400 mcg-calcium 500 mg-minerals tablet (Women's Daily Formula) 1 ea PO DAILY 11/21/10
outpatient occupational and speech therapy #1 ea 06/08/24
atorvastatin 80 mg tablet 80 mg PO QPM #30 tabs 06/08/24
clopidogrel 75 mg tablet 75 mg PO DAILY #21 tabs 06/08/24
levetiracetam 500 mg tablet (Keppra) 500 mg PO BID #60 tabs 06/09/24
amoxicillin 875 mg-potassium clavulanate 125 mg tablet 1 tab PO BID 08/06/24
azithromycin 250 mg tablet 250 mg PO DAILY 08/06/24
benzonatate 100 mg capsule 100 mg PO TIDPRN PRN cough 08/06/24
cholecalciferol (vitamin D3) 10 mcg (400 unit) tablet (Vitamin D3) 10 mcg PO DAILY 08/06/24
prednisone 10 mg tablet 10 mg PO DAILY 08/06/24
valsartan 320 mg-hydrochlorothiazide 25 mg tablet 1 tab PO DAILY 08/06/24
Review of Systems
-
Constitutional: Reports No Symptoms
EENT: Reports No Symptoms
Respiratory: Reports No Symptoms
Cardiac: Reports No Symptoms
Abdomen/GI: Reports No Symptoms
: Reports No Symptoms
Musculoskeletal: Reports No Symptoms
Skin: Reports No Symptoms
Neurological: Reports Other (expressive aphasia)
Endocrine: Reports No Symptoms
Hematologic/Lymphatic: Reports No Symptoms
Psych: Reports No Symptoms
Physical Exam
Vital Signs
Vital Signs
Temp Pulse Resp BP Pulse Ox
97.7 F 91 16 167/85 95
08/06/24 11:50 08/06/24 12:00 08/06/24 12:00 08/06/24 11:58 08/06/24 12:00
Physical Exam
General: Well Developed, Well Nourished and No Apparent Distress
HEENT: NormoCephalic, Moist mucous membranes and Atraumatic
Respiratory: Clear
Cardiac: S1/S2 and Regular Rhythm; No Murmur or Rub
GI: Soft, Non Tender, Non Distended and Normal Bowel Sounds; No Organomegaly
Rectal: Deferred by Provider
Musculoskeletal: No Clubbing, No Cyanosis and No Edema
Skin: No Rash
Neuro: AO x 3 and Nonfocal/grossly intact
Psych: Calm
Laboratory Results
-
08/06/24 11:42
Data Reviewed
-
CT Scan: Report Reviewed by me
Lab Data: Labs Reviewed by me
Impression/Plan
-
# CVA from left M2 occlusion
- Status post TNK
- Head neck CT with impression of Focal calcification involving the left middle cerebral artery, within the superior division just past the bifurcation. This would be within the proximal M2 portion of the left middle cerebral artery. Hypoplastic A1
segment of the right anterior cerebral artery.Calcific atherosclerotic disease, with no evidence for hemodynamically significant stenosis of the carotid bulbs or proximal internal carotid arteries bilaterally.Dominant left vertebral artery with
smaller caliber right vertebral artery. No significant narrowing of the vertebral or basilar arteries.Percent stenosis is calculated using NASCET criteria.
- Head CT with impression of New calcification near the anterior genu of the left middle cerebral artery, suspicious for calcified embolus.Subtle decreased density involving the left anterior insula, suspicious for acute to subacute infarction.
- Neurology consult
-Frequent neuro check.
-Allow permissive hypertension
-statin continued
-hold asa and Plavix for 24 hour
-obtain MRI
-PT/OT consult.
#Seizure
-Keppra continued
#essential HTn
-allow permissive htn
-labetalol prn
#recent pneumonia
-started on abx 3 days ago for five days
-will until IV ceftriaxone and doxy.
-chest x ray pending.
CODE STATUS: Full code
DVT prophylaxis: scd
[2024-08-06 12:04] LABS: APTT 30.8 Sec (23.4-35.0)
[2024-08-06 12:08] LABS: ALT (SGPT) 50 U/L (0-35); AST (SGOT) 35 U/L (14-36); Albumin 3.3 g/dl (3.5-5.0); Alkaline Phosphatase 71 U/L (38-126); Blood Urea Nitrogen 13 mg/dl (7-17); Calcium 9.3 mg/dl (8.4-10.2); Carbon Dioxide 26 mmol/L (22-30); Chloride 90 mmol/L (98-107); Estimated Creatinine Clearance 84 ml/min; Glucose 137 mg/dl (70-99); Potassium 3.3 mmol/L (3.5-5.1); Sodium 124 mmol/L (135-145); Total Bilirubin 0.5 mg/dl (0.2-1.3); eGFR > 60.00
[2024-08-06 12:22] LABS: Troponin I < 0.012 ng/ml
--- NOTE | 2024-08-06 12:41 | W.PN.UPDATE ---
Update Note
Progress Note Update
This is an addendum to H&P written by Leslie Loco on 08/05/2024. �Patient seen and examined independently with SMALL BUSINESS REPRESENTATIVE.
69-year-old female past medical history of hypertension, hyperlipidemia, prior CVA presenting for expressive aphasia. �Last seen normal before bed last night and this morning woke up with speech disturbance.
She was recently admitted from 06/07 to 06/09 for acute CVA with subacute infarct of the left caudate nucleus and small infarcts of the left gonzalez radiata and bilateral frontal lobes. �EEG also showed evidence of seizure. �She was started on Keppra.
�Patient was discharged on aspirin and Plavix and statin and Keppra and hydrochlorothiazide for hypertension.
She was having cough and congestion and was started on antibiotics and prednisone 3 days ago to be completed for 5-day course.
Patient's blood pressure 170s to 180s systolic. �Heart rate up to 114.
NIH score of 3.
Labs show sodium of 124. �Potassium 3.3.
CTA head and neck shows left MCA focal calcification.
Decision was made to give TNK. �As per neurology she is not a IAT candidate. �Patient given IV labetalol to keep blood pressure below 180/100. �TNK given. �Hold aspirin and Plavix. �Neurochecks per protocol. �Check speech and swallow evaluation. MRi
brain.�
Continue antibiotics for pneumonia. �Chest x-ray pending to evaluate status of pneumonia.
Suspect hyponatremia secondary to recent addition of hydrochlorothiazide. �Hold hydrochlorothiazide. �Potassium repletion.
--- NOTE | 2024-08-06 13:34 | CON.INTV ---
Addendum entered and electronically signed by Jose Luis Schultz MD 08/06/24 17:10:
Addition to assessment/plan:
#Recent pneumonia � patient is currently on Augmentin that she was prescribed by her PCP 2 days prior to arrival; no obvious pneumonia on CXR here. Patient currently on ceftriaxone + doxycycline started by hospitalist. Would complete a 5-day
course of antibiotics and then stop, especially given that the patient's WBC count is normal. Trend WBC and monitor temperature curve.
Original Note:
Consultation
Consultation Request
Date/Time Consultation Requested: 08/06/2024 - 1243
Date/Time Consultation Performed: 08/06/2024 - 1301
Requesting Provider: DANIEL Gomes
Performing Provider: Dr. Schultz
Reason for Consultation: s/p TNK
Medical History
-
Chief Complaint: Difficulty speaking
History of Present Illness:
69-year-old female with a past medical history of ischemic stroke (05/2024), hyperlipidemia, hypertension, and history of COVID-19 who presents with difficulty speaking. Patient was at home when she developed sudden difficulty talking. She was at
home with her when he noticed that she cannot speak and her gait was off balance, and now moves call. Initial NIHSS was 3. Initial CT head showed subtle decreased density involving the left anterior insula suspicious for an acute/subacute
infarction, as well as new calcification near the anterior genu of the left MCA suspicious for calcified embolus. CTA head/neck showed a proximal M2 occlusion. Neurology consulted. Initially she was afebrile to 97.7 �F, pulse rate 114,
respiratory rate 16, BP 175/87 and saturating 98% on room air. Initial labs showed Hb 11.5, platelet count 431, INR 1.08, sodium 124, potassium 3.3, and POCT glucose 162. CXR showed no acute cardiopulmonary disease. Neurology recommended TNK and
she received this at 11:55 AM on 08/06/2024. Patient was then admitted to the ICU for further care with [employer] services consulted for additional management/recommendations. Of note, patient follows with neurology here at [facility] with last
visit on 07/30/2024 with DANIEL Jaimes.
When I saw the patient, she was saturating 97% on room air, BP 108/67 and heart rate 63. Patient's son, Reginaldo, present at bedside and all questions were answered. Patient had good eye contact but had difficulty speaking and also appeared confused
when I was speaking with her or directing her to do certain things during the physical exam.
PMHx: Hx of multilateral and lobar stroke, hyperlipidemia, hypertension, osteoarthritis, history of COVID-19
PHSx: LEEP, arthroscopy, left hip replacement
Past Medical History
Past Medical History: Other (Above as per HPI)
Past Surgical History: Other (Above as per HPI)
Social History
Tobacco: Non-smoker
Alcohol: None
Drug: None
Family History
Family History: CAD (Maternal grandmother) and Diabetes (Paternal grandfather + paternal grandmother)
Allergies / Home Medications
Allergies
Allergy/AdvReac Type Severity Reaction Status Date / Time
penicillin G (Penicillin G) Allergy YEAST Verified 06/06/24 21:13
INFECTIONS
Home Medications
�Medication �Instructions �Recorded �Confirmed �Last Taken �Type
multivit-iron 18 mg-folic acid 400 1 ea PO DAILY Supplement 11/21/10 08/06/24 08/05/24 History
mcg-calcium 500 mg-minerals tablet
(Women's Daily Formula)
outpatient occupational and #1 ea 06/08/24 08/06/24 Unknown Rx
speech therapy
atorvastatin 80 mg tablet 80 mg PO QPM #30 tabs 06/08/24 08/06/24 08/05/24 Rx
clopidogrel 75 mg tablet 75 mg PO DAILY #21 tabs 06/08/24 08/06/24 08/05/24 Rx
levetiracetam 500 mg tablet 500 mg PO BID #60 tabs 06/09/24 08/06/24 08/05/24 Rx
(Keppra)
amoxicillin 875 mg-potassium 1 tab PO BID Infection 08/06/24 08/06/24 08/05/24 History
clavulanate 125 mg tablet
azithromycin 250 mg tablet 250 mg PO DAILY Infection 08/06/24 08/06/24 08/05/24 History
benzonatate 100 mg capsule 100 mg PO TIDPRN PRN cough 08/06/24 08/06/24 08/05/24 History
cholecalciferol (vitamin D3) 10 10 mcg PO DAILY Supplement 08/06/24 08/06/24 08/05/24 History
mcg (400 unit) tablet (Vitamin D3)
prednisone 10 mg tablet 10 mg PO DAILY Lung/Breathing 08/06/24 08/06/24 08/05/24 History
Issues
valsartan 320 1 tab PO DAILY Blood Pressure 08/06/24 08/06/24 08/05/24 History
mg-hydrochlorothiazide 25 mg tablet
Review of Systems
-
Unable to Obtain full review of systems at this time due to: Acuity and Language Barrier
Vitals / Labs / Diagnostic Testing
Vital Signs
Temp Pulse Resp BP Pulse Ox
97.6 F 63 14 106/67 97
08/06/24 15:05 08/06/24 15:57 08/06/24 15:57 08/06/24 15:57 08/06/24 16:09
Lab Data
08/06/24 11:42
08/06/24 11:42
Laboratory Results
08/06/24
11:42
PT 14.4
INR 1.08
APTT 30.8
Diagnostic Testing:
Physical Exam
-
HEENT: Normocephalic and Anicteric
Cardiovascular: S1/S2 and Peripheral Edema (negative)
Respiratory: Wheeze (negative), Rales (Faintly heard in the anterior lung cutler bilaterally), Rhonchi (negative) and Non-Labored Respirations
GI: Soft, Non Distended, Non Tender and Normal Bowel Sounds
Neurology: Awake, Tremors (negative) and Other (Pupils +3 mm bilaterally and brisk, unable to move right upper extremity and unable to follow commands in general due to receptive aphasia; obvious right-sided facial droop with flattening of
naso-labial fold)
Skin: Warm and Dry
General: Respiratory Distress (negative), Comfortable, Fever (negative) and Chills (negative)
Assessment
-
Assessment: 69-year-old female with a past medical history of ischemic stroke (05/2024), hyperlipidemia, hypertension, and history of COVID-19 who presents with difficulty speaking. Patient was at home when she developed sudden difficulty talking.
She was at home with her when he noticed that she cannot speak and her gait was off balance, and now moves call. Initial NIHSS was 3. Initial CT head showed subtle decreased density involving the left anterior insula suspicious for an
acute/subacute infarction, as well as new calcification near the anterior genu of the left MCA suspicious for calcified embolus. CTA head/neck showed a proximal M2 occlusion. Neurology consulted. Initially she was afebrile to 97.7 �F, pulse rate
114, respiratory rate 16, BP 175/87 and saturating 98% on room air. Initial labs showed Hb 11.5, platelet count 431, INR 1.08, sodium 124, potassium 3.3, and POCT glucose 162. CXR showed no acute cardiopulmonary disease. Neurology recommended TNK
and she received this at 11:55 AM on 08/06/2024. Patient was then admitted to the ICU for further care with [employer] services consulted for additional management/recommendations. Of note, patient follows with neurology here at [facility] with
last visit on 07/30/2024 with DANIEL Jaimes.
Chronic conditions BUFFERER: Hyperlipidemia, hypertension, osteoarthritis, history of COVID-19
Impression:
#Right sided hemiplegia with right-sided facial droop and receptive aphasia due to left sided ischemic CVA in setting of proximal left M2 occlusion s/p TNK
#History of multiple ischemic infarcts involving the left caudate nucleus, left gonzalez radiata and bilateral frontal lobes (seen on brain MRI 06/07/2024)
#Chronic anemia
#Thrombocytosis (likely reactive)
#Hypochloremic, hyponatremia likely due to reduced oral intake
#Hypokalemia
#Recent pneumonia
#History of COVID-19
#History of hypertension/hyperlipidemia
Plan:
- Admit to ICU with q1hr neurochecks with NIHSS q shift after she has received TNK at 11:55 AM on 08/06/2024
- Bedrest
- Strict BP control with goal <180 over 105 mmHg
- MRI brain tomorrow, ideally within 22-32 hours of TNK
- Avoid anticoagulation/antiplatelet medications within 24 hours of patient receiving TNK, and also limit blood draws if possible
- Keep NPO and if mentation improves then RN can perform bedside swallow assessment to see if pt can safely take PO meds and have sips of water/ice chips
- Would need PATIENT SERVICE COORDINATOR eval prior to her starting PO diet
- PT/OT
- Check echo with bubble study (although she did have a recent echo on 06/07/2024, which showed an intact interatrial septum with no evidence of shunting by color-flow Doppler)
- Maintain euglycemia with goal BG 140-180
- Maintain normothermia
- Assuming she can safely swallow PO meds, continue high intensity statin with sleep
- If there is any abrupt change in her neurochecks then obtain stat CT head with notification to the donor services coordinator and neurologist (of note, while in the ICU her NIH stroke scale increased to 9 with worsening symptomatology and emergent CT head
performed which did not show any significant changes with absence of hemorrhagic conversion
- Maintain SpO2 >92-94%
- Maintain MAP>65 but with strict BP<180/105mmHg in this acute period after she received TNK (as stated above)
- Replete electrolytes with K>4, Mg>2
- Trend H/H and transfuse if needed to keep Hb>7g/dL; keep plt>100k
- prn nebulized bronchodilators - not currently bronchospastic
- DVT ppx: SCDs for now
Code status: Full code
Continue ICU level of care for this critically ill patient.
Critical care statement: A total of 42 minutes of critical care time was provided for this patient today. This includes management of unstable vital signs, evaluation of the patient at bedside, reviewing the patient's pertinent medical records
including radiographs, microbiology, laboratory evaluations, and discussion with primary team, consultants, pharmacy, nutrition, physical therapy, case management, charge nurse, critical care nursing, and respiratory therapy.
Data:
CT head without contrast 08/06/2024:
New calcification near the anterior genu of the left middle cerebral artery, suspicious for calcified embolus.
Subtle decreased density involving the left anterior insula, suspicious for acute to subacute infarction.
CTA Head and neck 08/06/2024:
Focal calcification involving the left middle cerebral artery, within the superior division just past the bifurcation. This would be within the proximal M2 portion of the left middle cerebral artery.
Hypoplastic A1 segment of the right anterior cerebral artery.
Calcific atherosclerotic disease, with no evidence for hemodynamically significant stenosis of the carotid bulbs or proximal internal carotid arteries bilaterally.
Dominant left vertebral artery with smaller caliber right vertebral artery. No significant narrowing of the vertebral or basilar arteries.
CXR 08/06/2024: No acute disease of the chest.
[2024-08-06] MEDS: TRANDATE 10 MG IV ×2 (13:54→15:00)
[2024-08-06] MEDS: ROCEPHIN 1000 MG IV (13:57)
[2024-08-06] MEDS: STERILE WATER FOR INJECTION 10 ML IV (13:57)
--- NOTE | 2024-08-06 14:27 | W.PN.UPDATE ---
Update Note
Progress Note Update
Patient reported to have worsening of symptomatology and worsening NIH stroke scale
Emergent head CT reperformed following tenecteplase provision which fails to demonstrate significant changes, specifically absence of intracranial hemorrhage
Continue supportive care
[2024-08-06] MEDS: VIBRAMYCIN 260 MG IV (14:37)
--- NOTE | 2024-08-06 15:57 | CM ---
CM received consult, reviewed chart and met with pt's in ICU. Lives with in multistory home, [address], has first floor BA and BR. Was independent in ADLs and IADLs. Has not driven since Admission in May. Was receiving OP PT/OT.
PCP: Abby Hernandez
Pharmacy: [facility]
Plan: Anticipate home pending ongoing medical evaluation, watch for needs
--- NOTE | 2024-08-06 16:35 | PTCARENOTE ---
Pt arrived to ICU from ED via stretcher, assisted to unit bed. Pt s/p TNK. NIHSS 5 upon arrival to unit. Unable to answer correct month and age. Severe aphasia and mild dysarthria. Approximately 30 minutes started displaying new symptoms of right
sided facial paralysis, worsening aphasia, and right sided arm drift. New NIHSS of 9. Pt taken for CT scan of head. Returned to room with NIHSS 6, facial paralysis improved to minor and right arm drift resolved. SaO2 97% on room air. Scattered
rhonchi auscultated with crackles at left base. Sinus rhythm on media monitor. No edema. Palpable radial and pedal pulses. SBP > 185 without improvement after PRN Trandate 10mg IV. Dr. Luther notified, goal of 180/110 with SBP > 140. New order
for Trandate 10mg IV x1 now acknowledged and administered. BP 147/73. HR 74. Abdomen nontender. Pt voided small amount. Unfortunately not obtained to send for sample. (L) AC with small bleeding after TNK administration. (R) AC #20 flushed and
capped.
[2024-08-06 17:51] LABS: Magnesium 1.6 mg/dl (1.6-2.3); Phosphorus 2.8 mg/dl (2.5-4.5)
[2024-08-06] MEDS: KCL 270 MEQ IV (17:53)
--- NOTE | 2024-08-06 18:18 | PTCARENOTE ---
Potassium Chloride 40 meq IV X1 now infusing for K result of 3.3.
[2024-08-06] MEDS: KEPPRA 500 MG IV (20:09)
[2024-08-06 21:54] LABS: Osmolality Urine 206 mOsm/kg (300-900)
[2024-08-06 22:07] LABS: Urine Sodium 34 mmol/L (30-90)
--- NOTE | 2024-08-06 23:24 | PTCARENOTE ---
Received pt resting in bed. NIH handoff completed with jose antonio FLORES. NIH = 7. + R facial droop, R UE ataxia, aphasia and dysarthria. RUE 4/5 strength but pt has difficulty with fine motor movements of her R hand. Pt. can only say 'yes' and 'no' to
questions. Attempts to communicate and express needs but is unable to. Encouragement provided. Q1 hr neuro checks ongoing. SR on tele, HR 60s. BP 130-160/70s. Thigh high SCDs maintained. No edema. + pulses. Afebrile. On RA. Lungs with scattered
rhonchi throughout. Spo2 94-95%. + bowel sounds. LBM 08/05. K rider infusing R AC. L AC INT previously bleeding per report but no active bleeding now. Call lerma in reach.
Daughter at bedside - questions answered.
--- NOTE | 2024-08-06 23:30 | PTCARENOTE ---
2119 - pt. expressed need to urinate. Attempted bedpan with no success. Bladder scan = 935ml. DANIEL Parsons notified. Orders to straight cath. 1000ml yellow urine out.
2300 - on hourly check, RUE initially weaker than prior. Pt. having difficulty raising it up. Pt was just woken up from a deep sleep. BLOCK LAYER notified. Agreeable to give pt. 5-10 minutes to fully wake up and reassess. On reassessment after 5 minutes,
all extremity strength back to same as previous check. Pt. denies headache and nausea.
[2024-08-06] MEDS: NSS 1000 IV (23:41)
[2024-08-07] VITALS (32 sets, daily range): BP systolic 121–177; BP diastolic 63–90; PULSE 78–79; O2SAT 96–98; BMI 23.1
[2024-08-07] MEDS: VIBRAMYCIN 260 MG IV ×2 (02:57→13:45)
[2024-08-07 04:14] LABS: Hematocrit 31.2 % (37.0-47.0); Hemoglobin 11.1 g/dL (12.0-16.0); Mean Corp Hgb Conc. 35.6 g/dL (33.0-37.0); Mean Corpuscular Hgb 31.3 pg (27.0-31.0); Mean Corpuscular Volume 87.9 fL (81.0-99.0); Mean Platelet Volume 8.3 fL (7.4-10.4); Platelet Count 455 10^3/uL (130-400); Red Blood Cell Count 3.55 10^6/uL (4.20-5.40); Red Cell Dist. Width 11.8 % (11.5-14.5); White Blood Cell Count 8.2 10^3/uL (4.8-10.8)
--- NOTE | 2024-08-07 04:20 | PTCARENOTE ---
Neuro status remains unchanged. Pt. gets frustrated when she is unable to communicate her needs. Still can only say 'yes' and 'no.' Denies pain. Encouragement provided. Bladder scanned for 88ml. Pt. expressed no urge to void. Will monitor. Was
started on NSS @ 50ml/hr overnight. AM labs drawn.
[2024-08-07 04:25] LABS: INR 1.05
[2024-08-07 04:32] LABS: Blood Urea Nitrogen 15 mg/dl (7-17); Calcium 9.6 mg/dl (8.4-10.2); Carbon Dioxide 22 mmol/L (22-30); Chloride 102 mmol/L (98-107); Estimated Creatinine Clearance 84 ml/min; Glucose 132 mg/dl (70-99); HDL Cholesterol 26 mg/dl; LDL Cholesterol, Calculated 124 mg/dl; Magnesium 1.7 mg/dl (1.6-2.3); Phosphorus 4.1 mg/dl (2.5-4.5); Potassium 4.2 mmol/L (3.5-5.1); Sodium 132 mmol/L (135-145); Total Cholesterol 174 mg/dl (50-199); Triglyceride 123 mg/dl (10-149); Very Low Density Lipoprotein 24 mg/dl (0-30); eGFR > 60.00
--- NOTE | 2024-08-07 07:08 | W.PN.HOSP.TC ---
Today's Communication/Plan
-
see a/p
Assessment / Plan
Assessment / Plan
Physical Exam
General: No acute distress appears comfortable
HEENT: NormoCephalic, Moist mucous membranes and Atraumatic
Respiratory: Clear
Cardiac: S1/S2 and Regular Rhythm; No Murmur or Rub
GI: Soft, Non Tender, Non Distended and Normal Bowel Sounds; No Organomegaly
Musculoskeletal: No Clubbing, No Cyanosis and No Edema, right sided weakness noted
Neuro: Awake Alert limited communications able to follow simple commands to an extent d/t aphasia, able to speak few words but fluent speech when spoken, right sided facial droop, strength 3/5 right ext's 5/5 left ext's
Psych: Calm
69F HTN HLD hx CVA here for 2nd stroke in 3 months, required TNK and subsequent admission to ICU.
# CVA from left M2 occlusion
#Hyperlipidemia
#suspected embolic source stroke, possible afib though not noted on monitors EKGs here
- Status post TNK
- Initial CT head appreciated new calcification anterior genu Lt MCA, suspicious for calcified embolus, subtle density Lt anterior insula concerning for acute to subacute infarction
- CTA Head/Neck Focal Calcification Lt MCA, M2 portion, significant stenosis of the carotid bulbs or proximal internal carotid arteries bilaterally.
- MRI brain appreciated Large 5.9 cm Acute Ischemic Infarct Lt MCA territory w extensive involvement posterior left frontal lobe and left insular cortex. Smaller acute infarcts Lt posterior parietal lobe. Small acute infarcts right parietal lobe.
Mild cerebral/cerebellar volume loss. Mild cervical disc herniations
- Neurology consult appreciated goal bp <180/105 24h following TNK, then normotension. Hold all antiplatelets anticoagulation 24h then ASA 81 mg daily until anticoagulation.
-as per neuro start anticoagulation with discontinuance of aspirin after 48 hours of new stroke onset due to high risk for additional embolic stroke
-Cardio eval appreciated planned for LO Mon
-aspiration fall precautions
-neuro checks
-cont statin
-Speech eval keep NPO, pending VSE vs FEES
-IVF support while NPO
-PT/OT consult appreciated Acute Rehab
Hypokalemia
-monitor and replete as necessary
#Seizure
-Keppra continued IV
#essential HTn
-labetalol prn
#recent pneumonia
-started on abx 2 days prior to admission
-cont IV ceftriaxone and doxy, plan total 5 days abx
-chest x ray appreciated no acute dz
CODE STATUS: Full code
DVT prophylaxis: scd
Medically stable for downgrade to Tele
discussed with patient and patient's daughter Leyla
I spent a total of 60 minutes with the patient or on the floor. More than 50% of this time involved counseling and coordination of care.
Anticipated Discharge: > 48 hours
Subjective/Interval History
-
Date of Service: August 07, 2024
No acute distress appears comfortable sitting up in bed. Right sided deficits noted, facial droop weakness. Expressive aphasia. Occasionally able to say a few words fluently but unable to state name, name of current state location, or year at
this time. Following simple commands to an extent, likely limited d/t aphasia.
Objective Data
-
Labs:
Laboratory Results
08/07/24
03:55
WBC 8.2
Hgb 11.1 L
Hct 31.2 L
Plt Count 455 H
PT 14.0
INR 1.05
APTT 30.0
Sodium 132 L D
Potassium 4.2 D
Chloride 102
Carbon Dioxide 22
BUN 15
Creatinine 0.5 L
Glucose 132 H
Calcium 9.6
Vital Signs:
Vital Signs
Temp Pulse Resp BP Pulse Ox
99.2 F 75 17 151/82 95
08/07/24 03:48 08/07/24 06:00 08/07/24 06:00 08/07/24 06:00 08/07/24 05:30
I&O
08/06/24 08/07/24 08/08/24
06:59 06:59 06:59
Intake Total 600 / 600
Output Total 1000 / 1000
Balance -400 / -400
[2024-08-07] MEDS: KEPPRA 500 MG IV ×2 (08:04→20:05)
--- NOTE | 2024-08-07 08:12 | W.PN.NEURO.1 ---
Today's Communication / Plan
-
goal blood pressure over the first 24 hours would be less than 180/105 mmHg, then normotension
check MRI of the brain within 22-32 hours of TNK without contrast for localization of the stroke
hold all antiplatelets, OAC meds, DOAC meds, heparinoids for first 24 hours, then aspirin 81 mg daily until anticoagulation
Would start anticoagulation with discontinuance of aspirin after 48 hours of new stroke onset due to high risk for additional embolic stroke
Patient will need Cardiology evaluation with consideration for LO and ILR.
LDL goal is <70. Continue home atorvastatin 80 mg at bedtime when patient is able to take PO, also, patient will need a secondary agent as LDL greater than 124 on atorvastatin alone
Neuro Assessment/Plan
Assessment
Lab Results: See below.
Neuro Imaging:
1. CT Head 08/06/24: New calcification near the anterior genu of the left middle cerebral artery, suspicious for calcified embolus. Subtle decreased density involving the left anterior insula, suspicious for acute to subacute infarction. ASPECT
score: 9.
2. CTA Head/Neck 08/06/24: Focal calcification involving the left middle cerebral artery, within the superior division just past the bifurcation. This would be within the proximal M2 portion of the left middle cerebral artery. Hypoplastic A1 segment
of the right anterior cerebral artery. Calcific atherosclerotic disease, with no evidence for hemodynamically significant stenosis of the carotid bulbs or proximal internal carotid arteries bilaterally. Dominant left vertebral artery with smaller
caliber right vertebral artery. No significant narrowing of the vertebral or basilar arteries.
3. CT Perfusion 08/06/24: 26cc ischemic penumbra, 0 ischemic core.
Acute left MCA ischemic stroke in the setting of a left M2 focal calcification; etiology of recurrent stroke is likely cardioembolic.
Plan
goal blood pressure over the first 24 hours would be less than 180/105 mmHg, then normotension
check MRI of the brain within 22-32 hours of TNK without contrast for localization of the stroke
hold all antiplatelets, OAC meds, DOAC meds, heparinoids for first 24 hours, then aspirin 81 mg daily until anticoagulation
Would start anticoagulation with discontinuance of aspirin after 48 hours of new stroke onset due to high risk for additional embolic stroke
Patient will need Cardiology evaluation with consideration for LO and ILR.
LDL goal is <70. Continue home atorvastatin 80 mg at bedtime when patient is able to take PO, also, patient will need a secondary agent as LDL greater than 124 on atorvastatin alone
Rehabilitation evaluations and treatment
Will follow
Subjective/Objective
Subjective Data
Date of Service: August 07, 2024
Patient unable to provide her own medical history
Objective Data
Vital Signs
Temp Pulse Resp BP Pulse Ox
36.7 C 80 16 159/83 94
08/07/24 07:00 08/07/24 07:30 08/07/24 07:30 08/07/24 07:00 08/07/24 07:30
Lab Results
08/07/24 03:55
08/07/24 03:55
PT 14.0 Sec (11.4-14.6) 08/07/24 03:55
INR 1.05 08/07/24 03:55
APTT 30.0 Sec (23.4-35.0) 08/07/24 03:55
Sodium 132 mmol/L (135-145) L D 08/07/24 03:55
Potassium 4.2 mmol/L (3.5-5.1) D 08/07/24 03:55
BUN 15 mg/dl (7-17) 08/07/24 03:55
Glucose 132 mg/dl (70-99) H 08/07/24 03:55
Calcium 9.6 mg/dl (8.4-10.2) 08/07/24 03:55
Phosphorus 4.1 mg/dl (2.5-4.5) 08/07/24 03:55
LDL Cholesterol, Calc 124 mg/dl 08/07/24 03:55
Patient Allergies
penicillin G (Penicillin G) Allergy (Verified 06/06/24 21:13)
YEAST INFECTIONS
Review of Systems
-
Unable to obtain full review of systems at this time due to: Aphasia
History Source: Patient
All other systems: Reviewed and negative
Physical Exam
-
General: No Apparent Distress and Appears Stated Age
Eyes: Round OU, Halliday Conjunctivae and No Ptosis
HEENT: Anicteric and Moist Mucous Membranes
Neck: Full Range of Motion
Respiratory: No Dyspnea
Cardiac: No JVD
GI: Non-distended
Skin: Unremarkable
Extremities: No Clubbing, No Cyanosis and No Edema
Psych: Unable to Assess
Extended Neurological Exam
Mood & Affect: Unable to Assess
Attention Span & Concentration: Awake, Alert, Interactive (Mildly bradyphrenic) and Severe Difficulty with 2 Step Request
Memory: Unable to Assess
Tremor: Hand Tremor Absent and Head Tremor Absent
Involuntary Movement: None
Speech: Severely Reduced Output
Cranial Nerve II: Left Eye: Pupillary Size Unremarkable and Unable to Assess Visual Pathak
Cranial Nerve II: Right Eye: Pupillary Size Unremarkable and Unable to Assess Visual Pathak
Cranial Nerves III, IV, : Extraocular Movement: Grossly Intact
Cranial Nerve VII: Facial Symmetry: Normal Facial Symmetry
Cranial Nerve VIII: Hearing: Unremarkable Hearing to Normal Conversational Volume
Cranial Nerves IX, X: Palate Movement: Unable to Assess
Cranial Nerve XI: Shoulder Shrug: Unable to Assess
Cranial Nerve XII: Tongue Protusion: Unable to Assess
Muscle Strength, Overall: Absent (Immediate drift right upper and lower extremities with striking the bed after 2 seconds), Spontaneously Moves (Left arm and leg movement) and Otherwise Intact
Muscle Bulk & Tone: Bulk Unremarkable and Tone Unremarkable
Pronator Drift: Negative Drift in Left Upper Extremity or Drift in Left Lower Extremity
Cold Sensation: Unable to Assess
Vibration Sensation: Unable to Assess
Touch Sensation: Unremarkable
Coordination: Unable to Assess
Gait & Station: Unable to Assess
Data Reviewed
-
Reviewed with: Physician, Nurse and Patient
Old Records: Summarized
Past History
Past History
ED Past Medical History: CVA, HTN, Hypercholesterolemia and Other (Osteoporosis)
ED Past Surgical History: Orthopedic (Left KEREN, right ACL)
Social History
Tobacco: Non-smoker
Alcohol: Daily
Drug: None
Personal:
Living: with family
Family History
Family History: Other (Reviewed and noncontributory)
Medications
-
Medications:
Generic Name Dose Route Start Last Admin
Trade Name Freq PRN Reason Stop Dose Admin
Acetaminophen 650 mg 08/06/24 12:44
Acetaminophen 325 Mg Tablet PO 09/03/24 12:43
Q4HPRN PRN
ROGER, mild pain, or temp >100.4F
Atorvastatin Calcium 80 mg 08/06/24 18:00 08/06/24 19:40
Atorvastatin (Lipitor) 80 Mg Tablet PO 09/03/24 17:59 Not Given
QPM HELEN
Ceftriaxone Sodium 1,000 mg 08/06/24 14:00 08/06/24 13:57
Ceftriaxone 1000 Mg / 10 Ml Vial IV 1,000 mg
Q24H HELEN Administration
Doxycycline Hyclate 100 mg/ 260 mls @ 260 mls/hr 08/06/24 14:00 08/07/24 02:57
Sodium Chloride IV 260 mls
Q12H HELEN Administration
Sodium Chloride 1,000 mls @ 50 mls/hr 08/06/24 23:45 08/06/24 23:41
Nss IV 1,000 mls
.Q20H HELEN Administration
Labetalol HCl 10 mg 08/06/24 12:44 08/06/24 13:54
Labetalol Hcl 5 Mg/1 Ml (20 Mg/4 Ml) Injection IV 09/03/24 12:43 10 mg
Q6HPRN PRN Administration
BP > 180/105 mmHg
Levetiracetam 500 mg 08/06/24 20:00 08/07/24 08:04
Levetiracetam (100 Mg/Ml) 500 Mg/5 Ml Vial IV 09/03/24 19:59 500 mg
Q12 HELEN Administration
Sodium Chloride 0 flush 08/06/24 18:00
Sodium Chloride 0.9% (Flush) Syringe IV 09/03/24 17:59
PER PROTOCOL HELEN
Sterile Water 10 ml 08/06/24 14:00 08/06/24 13:57
Sterile Water For Injection 10 Ml Vial IV 09/03/24 13:59 10 ml
DAILY@1400 HELEN Administration
--- NOTE | 2024-08-07 08:22 | W.PN.INTV ---
Today's Communication / Plan
Recommendations
Okay to start aspirin as per neurology given that it has been >24 hours s/p TNK
NPO per COORDINATE MEASURING MACHINE OPERATOR; continue light hydration with NS 0.9%
Keppra; defer stopping this to neurology
High intensity statin when she can take oral medications
COORDINATE MEASURING MACHINE OPERATOR/PT/OT
Goal BP <140/90
Goal BG >100 and <180
LO on Friday to eval for LA thrombus vs PFO as embolic etiology of stroke is suspected given the locations of her strokes
Patient is stable for downgrade out of ICU to telemetry, which was confirmed to be appropriate with discussion with neurology (Dr. Luther). No additional recommendations at this time. Production Machine Computer Operator/Pulmonary service will now sign off. Please
reconsult if there are any additional questions/concerns, or if patient's respiratory status deteriorates.
Assessment
-
Assessment: 69-year-old female with a past medical history of ischemic stroke (05/2024), hyperlipidemia, hypertension, and history of COVID-19 who presents with difficulty speaking. Patient was at home when she developed sudden difficulty talking.
She was at home with her when he noticed that she cannot speak and her gait was off balance, and now moves call. Initial NIHSS was 3. Initial CT head showed subtle decreased density involving the left anterior insula suspicious for an
acute/subacute infarction, as well as new calcification near the anterior genu of the left MCA suspicious for calcified embolus. CTA head/neck showed a proximal M2 occlusion. Neurology consulted. Initially she was afebrile to 97.7 �F, pulse rate
114, respiratory rate 16, BP 175/87 and saturating 98% on room air. Initial labs showed Hb 11.5, platelet count 431, INR 1.08, sodium 124, potassium 3.3, and POCT glucose 162. CXR showed no acute cardiopulmonary disease. Neurology recommended TNK
and she received this at 11:55 AM on 08/06/2024. Patient was then admitted to the ICU for further care with Production Machine Computer Operator services consulted for additional management/recommendations. Of note, patient follows with neurology here at [facility] with
last visit on 07/30/2024 with DANIEL Jaimes.
Chronic conditions ETHICS OFFICER: Hyperlipidemia, hypertension, osteoarthritis, history of COVID-19
Impression:
#Right sided hemiplegia with right-sided facial droop and receptive aphasia due to left sided ischemic CVA in setting of proximal left M2 occlusion s/p TNK
#History of multiple ischemic infarcts involving the left caudate nucleus, left gonzalez radiata and bilateral frontal lobes (seen on brain MRI 06/07/2024)
#Chronic anemia
#Thrombocytosis (likely reactive)
#Hypochloremic, hyponatremia likely due to reduced oral intake
#Hypokalemia
#Recent pneumonia
#History of COVID-19
#History of hypertension/hyperlipidemia
Plan:
- Admitted to ICU with q1hr neurochecks with NIHSS q shift after she has received TNK at 11:55 AM on 08/06/2024
- Strict BP control with goal <180/105 mmHg; now that it has been >24 hours s/p TNK, okay to reduce BP to <140/90
- MRI brain today shows a large 5.9 cm acute ischemic infarct in the left MCA territory with extensive involvement of the posterior left frontal lobe and left insular cortex
- Will start aspirin today per neurology recs given that it has been >24 hours s/p TNK
- Keep NPO as per COORDINATE MEASURING MACHINE OPERATOR evaluation; COORDINATE MEASURING MACHINE OPERATOR to continue to follow along
- PT/OT
- LO pending for Friday to evaluate for LA-thrombus vs PFO (she did have a recent echo on 06/07/2024, which showed an intact interatrial septum with no evidence of shunting by color-flow Doppler)
- Maintain euglycemia with goal BG 140-180
- Maintain normothermia
- Once pt can take meds, continue high intensity statin with sleep
- If there is any abrupt change in her neurochecks then obtain stat CT head with notification to the meeting coordinator and neurologist
- Complete antibiotics that were started prior to arrival; complete 5-day course total
- Maintain SpO2 >92-94%
- Maintain MAP>65
- Replete electrolytes with K>4, Mg>2
- Trend H/H and transfuse if needed to keep Hb>7-8g/dL; keep plt>100k
- prn nebulized bronchodilators - not currently bronchospastic
- DVT ppx: SCDs for now; will defer to neurology if safe to start chemical DVT prophylaxis
Code status: Full code
Patient is stable for downgrade out of ICU to telemetry, which was confirmed to be appropriate with discussion with neurology (Dr. Luther). No additional recommendations at this time. Production Machine Computer Operator/Pulmonary service will now sign off. Thank you for
allowing us to be involved in the care of this patient. Please reconsult if there are any additional questions/concerns, or if patient's respiratory status deteriorates.
Data:
CT head without contrast 08/06/2024:
New calcification near the anterior genu of the left middle cerebral artery, suspicious for calcified embolus.
Subtle decreased density involving the left anterior insula, suspicious for acute to subacute infarction.
CTA Head and neck 08/06/2024:
Focal calcification involving the left middle cerebral artery, within the superior division just past the bifurcation. This would be within the proximal M2 portion of the left middle cerebral artery.
Hypoplastic A1 segment of the right anterior cerebral artery.
Calcific atherosclerotic disease, with no evidence for hemodynamically significant stenosis of the carotid bulbs or proximal internal carotid arteries bilaterally.
Dominant left vertebral artery with smaller caliber right vertebral artery. No significant narrowing of the vertebral or basilar arteries.
CXR 08/06/2024: No acute disease of the chest.
MRI Brain 08/07/2024:
1. LARGE 5.9 CM ACUTE ISCHEMIC INFARCT in the LEFT MIDDLE CEREBRAL ARTERY TERRITORY with extensive involvement of the POSTERIOR LEFT FRONTAL LOBE and LEFT INSULAR CORTEX.
2. Smaller acute ischemic infarcts in the left posterior parietal lobe cortical armenta matter.
3. Small acute ischemic infarcts in the posterior cortical armenta matter of the right parietal lobe.
4. Mild diffuse cerebral and cerebellar volume loss.
5. Mild multilevel cervical spinal cord compression and central canal stenosis secondary to disc herniations and facet joint arthrosis.
Total time spent today was 57 minutes for this encounter. Time includes reviewing laboratory test/imaging results, reviewing pertinent medical records, obtaining and reviewing medical history, performing an appropriate exam, ordering medications,
tests and procedures. Time also includes documentation of this encounter, coordinating patient care and communicating with other healthcare professionals. Total time does not include separately billed tests performed on this date of service.
Subjective Dataa
Subjective Data
Date of Service:
Date of Service: August 07, 2024
Chief Complaint: Production Machine Computer Operator Follow Up
Subjective:
Patient seen and evaluated this morning. Heart rate 74, BP 155/72 and saturating 98% on room air. Patient's daughter, Leyla, and , Primo, as well as son, Reginaldo, all present at bedside. All questions answered. Patient continues to have
difficulty speaking and minimally able to move right arm. Otherwise, there are no significant changes neurologically compared to yesterday.
Review of Systems
General: Other (Unable to obtain given patient's acute clinical status/aphasia)
Objective Data
Data Reviewed
Vital Signs / I&O / Oxygen:
Vital Signs
Temp Pulse Resp BP Pulse Ox
98.4 F 85 20 137/81 98
08/07/24 11:00 08/07/24 11:00 08/07/24 11:00 08/07/24 11:08/07/24 11:00
Intake and Output
08/06/24 08/07/24 08/08/24
06:59 06:59 06:59
Intake Total 600 / 650 50 / 50
Output Total 1000 / 1000
Balance -400 / -350 50 / 50
SaO2 98
Physical Exam
General: Respiratory Distress (negative), Comfortable, Chills (negative) and Sweats (negative)
HEENT: Normocephalic and Anicteric
Cardiovascular: S1-S2 and Peripheral Edema (negative)
Respiratory: Clear, Wheeze (negative), Crackles (negative) and Rhonchi (negative)
GI: Soft, Non Distended, Non Tender and Normal Bowel Sounds
Neurology: Awake, Alert, Other (Pupils +3 mm bilaterally and brisk, minimal movement in right upper extremity and unable to follow all commands due to receptive aphasia; obvious right-sided facial droop with flattening of naso-labial fold) and Other
(Left policy officer strength 4/5, unable to assess right hand given flaccid; 4/5 left lower extremity dorsi/plantarflexion, unable to assess right foot given minimal movement; sensation intact in all 4 extremities to light touch)
Skin: Warm, Dry, Cyanosis (negative) and Jaundice (negative)
Labs/Micro/Reports
Lab Data
08/07/24 03:55
08/07/24 03:55
Laboratory Results
08/06/24 08/07/24
11:42 03:55
PT 14.4 14.0
INR 1.08 1.05
APTT 30.8 30.0
--- NOTE | 2024-08-07 09:07 | PTCARENOTE ---
Rec'd pt at 0700, bedside handoff performed with nightshift RN. [id number] documentation, Dr. Luther notified per protocol for increase in NIHSS. Dr. Luther in to assess pt, no new orders. Pt for MRI at 1000. Pt with right sided weakness, follows
simple commands. Only able to say 'yes' or 'no', but will answer appropriately with both words. Monitor SR. Family at bedside. Pt attempted to void on bedpan, unsuccessful. Bladder scanned for 197ml.
--- NOTE | 2024-08-07 09:20 | CON.CAR ---
Addendum entered and electronically signed by Herman Degroot DO 08/07/24 11:35:
I saw and examined the patient.
The Sales Enablement Analyst's note was reviewed and I agree with the note.
Comment:
Patient seen and examined. No acute events overnight. Patient resting comfortably in bed with daughter at bedside. Patient with expressive aphasia. No reported complaints.
GEN: NAD. Aphasia
HEENT: EOMI. Right sided facial droop
LUNGS: RA. No audible wheeze
CV: Regular rate and rhythm, no murmurs rubs or gallops
ABD: ND
EXT: No edema B/L LE; right-sided weakness right leg greater than right arm
SKIN: No rash
Telemetry demonstrates sinus rhythm with no documented AF
A/P as below
Patient presenting with acute stroke following recent strokes in May 2024. Patient underwent TNK by neurology yesterday. Cardiology consulted in the setting of recurrent CVA.
Telemetry demonstrates no evidence of atrial fibrillation at this time and no reported history.
In discussion with neurology, plan is to discontinue antiplatelets and start anticoagulation with apixaban 48 hours postevent due to concern for possible cardioembolic source
Continue to monitor on telemetry
Plan for LO if patient remaining stable 08/09/2024 for assessment for possible cardioembolic source
If no clear evidence of cardioembolic source, would then consider 30-day event monitor on discharge for assessment for possible arrhythmic etiology. And then further discussion regarding possible ILR to be done as an outpatient.
Reviewed importance of medication adherence.
Discussed with nursing, neurology
Original Note:
Consultation
Consultation Request
Date/Time Consultation Requested: 08/07/2024
Date/Time Consultation Performed: 08/07/2024
Requesting Provider: Dr. Judson Woo
Performing Provider: Dr. Arvind Degroot
Reason for Consultation: CVA possible A-fib
Medical History
-
History of Present Illness:
Patient came to [facility] ER yesterday with new aphasia and was admitted with possible recurrent stroke. Patient had just been admitted to [facility] from 06/07/2024 until 06/09/2024 for acute CVA and on MRI was found to have small embolic appearing infarcts
in the left caudate nucleus, left gonzalez radiata and bilateral frontal lobes. Patient's daughter is bedside and reports that patient was scheduled to follow-up with a caregiver assisted living out of the [facility] system, but then with worsening aphasia
came to [facility] ER yesterday after her called 911. Patient was given TNK and admitted to the ICU. Patient had worsening right sided symptoms in the afternoon of 08/06/2024 and was taken for an urgent CT head that did not show intracranial
hemorrhage or other significant changes. Patient is scheduled for MRI today. Cardiology is consulted for recurrent stroke and possible embolic etiology. No reports of palpitations. Patient's daughter reports family history of CVA, but no known
family history of A-fib.
PM:
Recent admission for HTN urgency and CVA 06/07/2024 until 06/09/2024
Small embolic appearing ischemic infarcts in the left caudate nucleus, left gonzalez radiata and bilateral frontal lobes by MRI of brain 06/07/2024 repeat MRI pending for this admission
HTN
Hyperlipidemia
Past Medical History
Past Medical History: Other (in HPI)
Past Surgical History: Gynecological (LEEP) and Orthopedic
Social History
Tobacco: Former Smoker
Alcohol: Daily (daily vodka drinker, daughter could not definitively quantify but says too much)
Drug: None (denies)
Personal:
Living: With Family
Family History
Family History: CAD and Diabetes
Allergies / Home Medications
Allergy/AdvReac Type Severity Reaction Status Date / Time
penicillin G (Penicillin G) Allergy YEAST Verified 06/06/24 21:13
INFECTIONS
�Medication �Instructions �Recorded �Confirmed �Type
multivit-iron 18 mg-folic acid 400 1 ea PO DAILY Supplement 11/21/10 08/06/24 History
mcg-calcium 500 mg-minerals tablet
(Women's Daily Formula)
outpatient occupational and #1 ea 06/08/24 08/06/24 Rx
speech therapy
atorvastatin 80 mg tablet 80 mg PO QPM #30 tabs 06/08/24 08/06/24 Rx
clopidogrel 75 mg tablet 75 mg PO DAILY #21 tabs 06/08/24 08/06/24 Rx
levetiracetam 500 mg tablet 500 mg PO BID #60 tabs 06/09/24 08/06/24 Rx
(Keppra)
amoxicillin 875 mg-potassium 1 tab PO BID Infection 08/06/24 08/06/24 History
clavulanate 125 mg tablet
azithromycin 250 mg tablet 250 mg PO DAILY Infection 08/06/24 08/06/24 History
benzonatate 100 mg capsule 100 mg PO TIDPRN PRN cough 08/06/24 08/06/24 History
cholecalciferol (vitamin D3) 10 10 mcg PO DAILY Supplement 08/06/24 08/06/24 History
mcg (400 unit) tablet (Vitamin D3)
prednisone 10 mg tablet 10 mg PO DAILY Lung/Breathing 08/06/24 08/06/24 History
Issues
valsartan 320 1 tab PO DAILY Blood Pressure 08/06/24 08/06/24 History
mg-hydrochlorothiazide 25 mg tablet
Review of Systems
-
History Source: Patient and Family (daughter helping with HPI bedside)
All other systems: Negative unless noted
Physical Exam
Vital Signs
Temp Pulse Resp BP Pulse Ox
98.0 F 69 15 127/66 95
08/07/24 07:00 08/07/24 09:00 08/07/24 09:00 08/07/24 09:00 08/07/24 09:00
GEN: NAD. Aphasia
HEENT: EOMI. Right sided facial droop
LUNGS: RA. No audible wheeze
CV: SR on tele. Reg, no murmur
ABD: ND
EXT: No edema B/L LE
SKIN: No rash
Lab Results
08/07/24 03:55
08/07/24 03:55
Troponin I < 0.012 ng/ml 08/06/24 11:42
Impression / Plan
-
PCP:[facility]
Cardiology: None prior to admission
Impression:
Admitted with CVA 08/06/2024
Recent admission for HTN urgency and CVA 06/07/2024 until 06/09/2024
Acute CVA with proximal M2 occlusion by CTA of head 08/06/2024
Small embolic appearing ischemic infarcts in the left caudate nucleus, left gonzalez radiata and bilateral frontal lobes by MRI of brain 06/07/2024 repeat MRI pending for this admission
Recent treatment for acute CVA but findings of subacute infarcts on MRI of brain 06/07/2024
Possible atrial arrhythmia
PNA, had already started treatment as an outpatient
Hypokalemia
HTN
Hyperlipidemia
Echo 06/07/2024: EF 70 to 75%, mild concentric LVH, mild TR
Plan:
-Patient came to [facility] ER yesterday with new aphasia and was admitted with possible recurrent stroke. Patient had just been admitted to [facility] from 06/07/2024 until 06/09/2024 for acute CVA and on MRI was found to have small embolic appearing infarcts
in the left caudate nucleus, left gonzalez radiata and bilateral frontal lobes. Patient's daughter is bedside and reports that patient was scheduled to follow-up with a caregiver assisted living out of the [facility], but then with worsening aphasia
came to [facility] ER yesterday after her called 911. Patient was given TNK and admitted to the ICU. Patient had worsening right sided symptoms in the afternoon of 08/06/2024 and was taken for an urgent CT head that did not show intracranial
hemorrhage or other significant changes. Patient is scheduled for MRI today. Cardiology is consulted for recurrent stroke and possible embolic etiology. No reports of palpitations. Patient's daughter reports family history of CVA, but no known
family history of A-fib.
-ECG reviewed by me is SR without acute ST changes. I reviewed telemetry strips scanned in from the chart from last admission and I do not see any evidence of atrial arrhythmia. Also reviewed EKGs as far back as 2010 and no evidence of atrial
arrhythmia.
-Patient is for MRI of brain today, and previous MRI of brain from 06/07/2024 suggested small embolic appearing ischemic infarcts and patient was started on aspirin and Plavix at that time and completed her 21 days of therapy. Case reviewed with
neurology and plan will be for initiation of OAC.
-Will schedule LO for Friday, orders placed by me in Ship Fastener charge nurse role updated in TT
-Pending results of LO and monitoring this admission we could consider a 1 month ambulatory heart monitor upon discharge to home prior to implantation of an ILR, especially in light of current plans for initiation of empiric OAC.
-Labs reviewed by me 08/07/2024
-LDL 124 today despite atorvastatin 80 mg daily. Interestingly her LDL is 94 on atorvastatin 10 mg daily last admission, but the dose was increased to 80 mg daily and now the LDL is worse. Perhaps there is an amount of medication noncompliance
contributing to this.
-Patient's daughter reports daily alcohol use, unable to quantify but states likely too much. Patient quit smoking more than 10 years ago and no illicit drug use.
-
--- NOTE | 2024-08-07 10:38 | PTOTSP ---
Speech Therapy
Presentation: Patient is familiar with the Speech department and has been receiving outpatient speech services at (06/15-07/26). Patient (currently) is demonstrating difficulty with communication (expressive/ receptive aphasia, dysarthria,
apraxia possible) which negatively impacts her ability to answer orientation questions and follow commands. Patient appeared frustrated and upset but was cooperative.
During oral mechanism examination, patient was unable to follow commands to perform cough, throat clear, or swallow initiation (prior to PO). Patient demonstrated right sided weakness and decreased coordination on the right side.
Swallowing Function: Patient was observed with several presentations of moistened swab and individual presentations of ice chips in which patient did not exhibit any overt clinical s/sx of aspiration HOWEVER, patient was unable to initiate a
reflexive or cued swallow. Thus, it is hypothesized that patient is demonstrated decreased oral containment (i.e. posterior leakage). Given patient's clinical presentation, oral weakness, dysarthric/aphasic/apraxic speech, patient is high risk for
aspiration.
Previous ST: Patient was seen during last admission (06/07/06/09) for speech therapy and was followed in outpatient ST (06/15-07/26). Patient was tolerating reg/ thin and working on cognitive-linguistic abilities.
At this time, patient is not appropriate for PO or ARHP given her clinical presentation and high risk for aspiration. ASE CERTIFIED TECHNICIAN will advance diet clinically as appropriate.
ASE CERTIFIED TECHNICIAN reviewed effortful swallows to patient, caregiver, and nurse in hopes for swallowing maintenance.
Recommendations:
1) NPO at this time
2) Not appropriate for ARHP at this time
3) Aspiration precautions
4) No mediations by mouth
5) Consideration of VSE vs FEES
6) Cognitive/ speech/ language evaluation
Plan: ASE CERTIFIED TECHNICIAN will continue to follow for diet advancement; pending hospitalization.
[2024-08-07] MEDS: ROCEPHIN 1000 MG IV (13:45)
[2024-08-07] MEDS: STERILE WATER FOR INJECTION 10 ML IV (13:45)
--- NOTE | 2024-08-07 14:07 | PTCARENOTE ---
Pt felt the need to void, bedpan unsuccessful. Bladder scanned for 337ml. Spoke with MD about pt's inability to void and last straight cathed at 2100 last pm. Per MD pt straight cathed for 300ml ana urine without difficulty, will need ramos placed
if unable to void again later today. Relayed info to pt, pt nodded head yes in understanding. Family at bedside. Pt assessment unchanged.
[2024-08-07] MEDS: TRANDATE 10 MG IV (20:05)
--- NOTE | 2024-08-07 20:41 | PTCARENOTE ---
assumed care, Dual RN NIH @ bedside, pt aphasic and dysarthric, nods head and can @ x's respond yes and no, NIH per worklist, follows commands, NS on the monitor, B/L knee high scds, + pulses, RA 96%, lungs diminished and coarse, BSx4 non tender,
due to void, bladder scanned for 207, 20G RAC, 18G LAC, NS 70ml, family @ bedside and updated, PRN labetalol given per order, downgraded to tele, otherwise refer to documentation.
[2024-08-07] MEDS: ASPIRIN 300 MG RECTAL (21:25)
[2024-08-07] MEDS: NSS 1000 IV (21:25)
[2024-08-07] MEDS: TRANDATE 5 MG IV (22:43)
--- NOTE | 2024-08-07 22:58 | PTCARENOTE ---
pt BP elevated above set Goal, PRN given per MAR, repeat pressure outside of parameters, DEPARTMENT STORE DOOR GREETER notified, stat med given per MAR, orders put in to transfer pt to tele, otherwise refer to documentation.
[2024-08-08] VITALS (14 sets, daily range): BP systolic 98–174; BP diastolic 47–93; PULSE 95–97; O2SAT 97; BMI 23.1
--- NOTE | 2024-08-08 00:10 | PTCARENOTE ---
systems reviewed, gave report to RN on , notified MILK ROUTE DELIVERER of BP not below goal after giving ordered labetalol, no new orders @ this time, bladder scanned for 426, MILK ROUTE DELIVERER ordered ramos for retention, otherwise refer to documentation
[2024-08-08] MEDS: VIBRAMYCIN 260 MG IV ×2 (00:52→14:03)
[2024-08-08] MEDS: TYLENOL/FEVERALL 650 MG RECTAL (02:47)
[2024-08-08] MEDS: TRANDATE 10 MG IV (02:51)
--- NOTE | 2024-08-08 03:24 | PTCARENOTE ---
Received patient from ICU at approx 0130. She was a sample puller into bed. NIH completed with ICU nurse upon arrival with a score of 15. Patient able to say yes/no or nod head to answer questions. Oriented to room. Call be in reach.
[2024-08-08] MEDS: APRESOLINE 5 MG IV ×2 (04:23→17:49)
[2024-08-08] MEDS: NSS 1000 IV ×2 (04:27→23:19)
--- NOTE | 2024-08-08 04:44 | PTCARENOTE ---
REVENUE LIAISON made aware via TT of NIH score of 15 upon arrival to unit and elevated BP readings. PRN Labetalol changed from q6 to q4. Dose given at 3am.
Follow up BP following Labetalol dose was 174/93. REVENUE LIAISON ordered one time dose of Hydralazine.
[2024-08-08 06:09] LABS: Hematocrit 34.1 % (37.0-47.0); Hemoglobin 11.9 g/dL (12.0-16.0); Mean Corp Hgb Conc. 34.9 g/dL (33.0-37.0); Mean Corpuscular Hgb 31.3 pg (27.0-31.0); Mean Corpuscular Volume 89.7 fL (81.0-99.0); Mean Platelet Volume 8.5 fL (7.4-10.4); Platelet Count 417 10^3/uL (130-400); Red Cell Dist. Width 11.9 % (11.5-14.5); White Blood Cell Count 12.3 10^3/uL (4.8-10.8)
[2024-08-08 06:45] LABS: ALT (SGPT) 35 U/L (0-35); AST (SGOT) 21 U/L (14-36); Albumin 3.3 g/dl (3.5-5.0); Alkaline Phosphatase 81 U/L (38-126); Blood Urea Nitrogen 9 mg/dl (7-17); Calcium 8.9 mg/dl (8.4-10.2); Carbon Dioxide 20 mmol/L (22-30); Chloride 103 mmol/L (98-107); Direct Bilirubin 0.5 mg/dl (0.0-0.4); Estimated Creatinine Clearance 84 ml/min; Glucose 131 mg/dl (70-99); Magnesium 1.5 mg/dl (1.6-2.3); Phosphorus 3.6 mg/dl (2.5-4.5); Potassium 3.7 mmol/L (3.5-5.1); Sodium 133 mmol/L (135-145); Total Bilirubin 0.5 mg/dl (0.2-1.3); Total Protein 5.8 g/dl (6.3-8.2); eGFR > 60.00
[2024-08-08] MEDS: KEPPRA 500 MG IV ×2 (08:07→19:57)
[2024-08-08] MEDS: ASPIRIN 300 MG RECTAL (08:07)
--- NOTE | 2024-08-08 08:24 | W.PN.HOSP.TC ---
Today's Communication/Plan
-
remains strict NPO
LO and VSE tomorrow Friday
NGT placed, ok to use for meds, hold off on nutrition till after LO and results for VSE
Blood pressure control, goal normotensive, prn hydralazine labetalol
low dose Amlodipine started with holding parameters
Eliquis to start Fri, ASA discontinued
Replete Magnesium
Assessment / Plan
Assessment / Plan
Physical Exam
General: No acute distress appears comfortable
HEENT: NormoCephalic, Moist mucous membranes and Atraumatic
Respiratory: Clear
Cardiac: S1/S2 and Regular Rhythm; No Murmur or Rub
GI: Soft, Non Tender, Non Distended and Normal Bowel Sounds; No Organomegaly
Musculoskeletal: No Clubbing, No Cyanosis and No Edema, right sided weakness noted
Neuro: Awake Alert limited communications able to follow simple commands to an extent d/t aphasia, able to speak few words but fluent speech when spoken, right sided facial droop, strength 3/5 right ext's 5/5 left ext's
Psych: Calm
69F HTN HLD hx CVA here for 2nd stroke in 3 months, required TNK and subsequent admission to ICU.
# CVA from left M2 occlusion
#Hyperlipidemia
#suspected embolic source stroke, possible afib though not noted on monitors EKGs here
- Status post TNK
- Initial CT head appreciated new calcification anterior genu Lt MCA, suspicious for calcified embolus, subtle density Lt anterior insula concerning for acute to subacute infarction
- CTA Head/Neck Focal Calcification Lt MCA, M2 portion, significant stenosis of the carotid bulbs or proximal internal carotid arteries bilaterally.
- MRI brain appreciated Large 5.9 cm Acute Ischemic Infarct Lt MCA territory w extensive involvement posterior left frontal lobe and left insular cortex. Smaller acute infarcts Lt posterior parietal lobe. Small acute infarcts right parietal lobe.
Mild cerebral/cerebellar volume loss. Mild cervical disc herniations
- Neurology consult appreciated goal bp <180/105 24h following TNK, then normotension. Hold all antiplatelets anticoagulation 24h then ASA 81 mg daily until anticoagulation.
-as per neuro start anticoagulation with discontinuance of aspirin after 48 hours of new stroke onset due to high risk for additional embolic stroke
-ASA discontinued and Eliquis set to start Friday08/09/24
-Cardio eval appreciated planned for LO Fri08/09/24
-aspiration fall precautions
-neuro checks
-cont statin
-Speech eval keep strict NPO, VSE ordered for Fri08/09/24, NGT placed in the meantime (patient and patient's Primo at bedside consented) for meds and possible start nutrition (after LO above)
-NGT placement confirmed with Chest/Abd X-rays
-IVF support while NPO
-PT/OT consult appreciated Acute Rehab, request PMR consult Friday
Hypokalemia
Hypomagnesemia
-monitor and replete as necessary
#Seizure
-Keppra continued IV
#essential HTn
-labetalol hydralazine prn
-low dose amlodipine 2.5 mg BID w/ holding parameters started
-monitor and titrate antihypertensive regimen as necessary, goal normotensive at this time
#HLD
cont statin
#recent pneumonia
-started on abx 2 days prior to admission
-chest x ray appreciated no acute dz
-completed additional 3 days IV ceftriaxone and doxy, total 5 days abx completed
CODE STATUS: Full code
DVT prophylaxis: scd, eventual start Eliquis Fri08/09/24
discussed with patient, patient's Primo, and patient's daughter Leyla
I spent a total of 50 minutes with the patient or on the floor. More than 50% of this time involved counseling and coordination of care.
Anticipated Discharge: 24 - 48 hours
Subjective/Interval History
-
Date of Service: August 08, 2024
Some improvement in symptoms noted, right sided facial droop appears improved though not resolved. Speaking more but remains limited to 1 to 2 word answers though fluent when speaking.
Objective Data
-
Labs:
Laboratory Results
08/08/24
05:07
WBC 12.3 H
Hgb 11.9 L
Hct 34.1 L
Plt Count 417 H
Sodium 133 L
Potassium 3.7
Chloride 103
Carbon Dioxide 20 L
BUN 9
Creatinine 0.4 L
Glucose 131 H
Calcium 8.9
Total Bilirubin 0.5
AST 21
ALT 35
Alkaline Phosphatase 81
Vital Signs:
Vital Signs
Temp Pulse Resp BP Pulse Ox
99.1 F 102 18 166/93 98
08/08/24 04:09 08/08/24 05:34 08/08/24 04:09 08/08/24 05:34 08/08/24 04:09
I&O
08/07/24 08/08/24 08/09/24
06:59 06:59 06:59
Intake Total 600 / 650 1740 / 1740
Output Total 1000 / 1000 1200 / 1200
Balance -400 / -350 540 / 540
[2024-08-08] MEDS: MAGNESIUM SULFATE 100 IV (08:36)
--- NOTE | 2024-08-08 12:42 | W.PN.CARDCBS ---
Today's Communication / Plan
-
Continue telemetry monitoring
N.p.o. after midnight LO tentatively 08/09/2024
Eliquis per neurology when able
Impression / Plan
-
PCP:[facility]
Cardiology: None prior to admission
Impression:
Admitted with CVA 08/06/2024
Recent admission for HTN urgency and CVA 06/07/2024 until 06/09/2024
Acute CVA with proximal M2 occlusion by CTA of head 08/06/2024
Small embolic appearing ischemic infarcts in the left caudate nucleus, left gonzalez radiata and bilateral frontal lobes by MRI of brain 06/07/2024 repeat MRI pending for this admission
Recent treatment for acute CVA but findings of subacute infarcts on MRI of brain 06/07/2024
Possible atrial arrhythmia
PNA, had already started treatment as an outpatient
Hypokalemia
HTN
Hyperlipidemia
Echo 06/07/2024: EF 70 to 75%, mild concentric LVH, mild TR
Plan:
-Patient came to [facility] ER yesterday with new aphasia and was admitted with possible recurrent stroke. Patient had just been admitted to [facility] from 06/07/2024 until 06/09/2024 for acute CVA and on MRI was found to have small embolic appearing infarcts
in the left caudate nucleus, left gonzalez radiata and bilateral frontal lobes. Patient's daughter is bedside and reports that patient was scheduled to follow-up with a letter of credit clerk out of the [facility], but then with worsening aphasia
came to [facility] ER yesterday after her called 911. Patient was given TNK and admitted to the ICU. Patient had worsening right sided symptoms in the afternoon of 08/06/2024 and was taken for an urgent CT head that did not show intracranial
hemorrhage or other significant changes. Patient is scheduled for MRI today. Cardiology is consulted for recurrent stroke and possible embolic etiology. No reports of palpitations. Patient's daughter reports family history of CVA, but no known
family history of A-fib.
-ECG reviewed by me is SR without acute ST changes. I reviewed telemetry strips scanned in from the chart from last admission and I do not see any evidence of atrial arrhythmia. Also reviewed EKGs as far back as 2010 and no evidence of atrial
arrhythmia.
-Patient is for MRI of brain today, and previous MRI of brain from 06/07/2024 suggested small embolic appearing ischemic infarcts and patient was started on aspirin and Plavix at that time and completed her 21 days of therapy. Case reviewed with
neurology and plan will be for initiation of OAC.
-Will schedule LO for Friday, orders placed by me in Patient Care Representative charge nurse role updated in TT; n.p.o. after midnight
-Pending results of LO and monitoring this admission we could consider a 1 month ambulatory heart monitor upon discharge to home prior to implantation of an ILR, especially in light of current plans for initiation of empiric OAC.
-Labs reviewed by me 08/07/2024
-LDL 124 today despite atorvastatin 80 mg daily. Interestingly her LDL is 94 on atorvastatin 10 mg daily last admission, but the dose was increased to 80 mg daily and now the LDL is worse. Perhaps there is an amount of medication noncompliance
contributing to this.
-Patient's daughter reports daily alcohol use, unable to quantify but states likely too much. Patient quit smoking more than 10 years ago and no illicit drug use.
-
Progress Note - Key Ringer
Subjective
Date of Service: August 08, 2024
Patient seen and examined with daughter at bedside. Patient resting in bed without acute distress. Patient with expressive aphasia.
Objective
Labs:
08/08/24 05:07
08/08/24 05:07
Labs
Hgb 11.9 g/dL (12.0-16.0) L 08/08/24 05:07
Hct 34.1 % (37.0-47.0) L 08/08/24 05:07
Plt Count 417 10^3/uL (130-400) H 08/08/24 05:07
PT 14.0 Sec (11.4-14.6) 08/07/24 03:55
INR 1.05 08/07/24 03:55
APTT 30.0 Sec (23.4-35.0) 08/07/24 03:55
Sodium 133 mmol/L (135-145) L 08/08/24 05:07
Potassium 3.7 mmol/L (3.5-5.1) 08/08/24 05:07
BUN 9 mg/dl (7-17) 08/08/24 05:07
Creatinine 0.4 mg/dL (0.6-1.0) L 08/08/24 05:07
Glucose 131 mg/dl (70-99) H 08/08/24 05:07
Troponins
08/06/24
11:42
Troponin I < 0.012
Vital Signs and I&O:
Vital Signs
Temp Pulse Resp BP Pulse Ox
98.4 F 97 19 172/85 96
08/08/24 12:00 08/08/24 12:00 08/08/24 12:00 08/08/24 12:00 08/08/24 12:00
Vital Signs
Temp Pulse Resp BP Pulse Ox
98.4 F 97 19 172/85 96
08/08/24 12:00 08/08/24 12:00 08/08/24 12:00 08/08/24 12:00 08/08/24 12:00
Intake & Output
08/06/24 08/07/24 08/08/24 08/09/24
06:59 06:59 06:59 06:59
Intake Total 600 / 650 1740 / 1740
Output Total 1000 / 1000 1200 / 1200
Balance -400 / -350 540 / 540
Physical Exam
Physical Exam
GEN: NAD. Aphasia
HEENT: EOMI. Right sided facial droop
LUNGS: RA. No audible wheeze
CV: Regular rate and rhythm, no murmurs rubs or gallops
ABD: ND
EXT: No edema B/L LE; right-sided weakness right leg greater than right arm
SKIN: No rash
Telemetry demonstrates sinus rhythm with no documented AF
[2024-08-08] MEDS: STERILE WATER FOR INJECTION 10 ML IV (14:03)
[2024-08-08] MEDS: ROCEPHIN 1000 MG IV (14:03)
--- NOTE | 2024-08-08 15:47 | PTOTSP ---
Speech therapy
Presentation: Patient appeared more alert than 08/07. Patient appeared frustrated with her communication. CERTIFIED MASSAGE THERAPIST evaluated communication with the use of communication board, gestures, yes/ no questions, and tactile communication (see below).
CERTIFIED MASSAGE THERAPIST reviewed the AAC board/ communication board brought to patient on 08/07 by occupational therapy. Patient appeared easily upset when CERTIFIED MASSAGE THERAPIST brought the AAC board to the patient. CERTIFIED MASSAGE THERAPIST reviewed the importance of AAC communication as a communication
medical office receptionist assistant during difficult times of communication. Patient agreed to trialing the communication board.
With the use of the 'I want' section of the board, patient was able to point to 2/10 directed opportunities correctly.
With the use of the 'I am' section of the board, the patient was able to point to 3/10 directed opportunities correctly.
With the use of the level of pain section of the board, the patient was able to select 5/5 directed opportunities correctly.
With the use of the alphabet portion of the baord, the patient was able to point to 5/5 directed opportunities correctly.
When cued to use the alphabet portion of the board to communicate with her son an idea that appeared to not be on the baord, patient pointed to 'I' and 'L' then pushed the board away. Given her teary look and apparent frustration, CERTIFIED MASSAGE THERAPIST implemented a
different communication modality (tactile communication).
During tactile communication (i.e. CERTIFIED MASSAGE THERAPIST holds up 2 hands and states what each hand represents and patient points to the desired hand), the patient did the following:
Orientation questions about self: 04/26
Orientation questions about location: /
Orientation questions about date/ year: 04/26
Questions regarding current needs/ wants: /5
During yes/ no questions:
Patient verbally answered yes/ no questions regarding orientation, pain, wants/ needs when cued by the CERTIFIED MASSAGE THERAPIST. Patient, however, appeared to perseverate 'yes' throughout the session as family members followed up several questions with the correct
answer of 'no'.
CERTIFIED MASSAGE THERAPIST reviewed gestural communication to patient (i.e. nodding, shaking head, thumbs up/ down) in which patient appeared to perseverate on her ability to do so throughout the session.
In sum, patient appeared to demonstrate expressive and receptive aphasia as well as possible apraxia (inability to coordinate desired movements intentionally).
Recommendations:
1) Various communication modalities
2) Time to assist with communication
3) Continuation of communication therapy
Plan: CERTIFIED MASSAGE THERAPIST will continue to follow for speech therapy and dysphagia therapy; pending hospitalization.
--- NOTE | 2024-08-08 15:56 | PTOTSP ---
Speech therapy
Presentation: Patient appeared to be more alert today in comparison to 08/07 session.
Swallowing Function: Patient appeared eager to trial PO. WOOD GLUER trialed several presentations of ice chips, tsp of thin liquids, and straw sip of thin liquids in which patient appeared to tolerate ice chips as she did not exhibit any overt clinical
s/sx of aspiration and demonstrated adequate oral containment and swallow initiation (improvement from 08/07). However, patient demonstrated inconsistent throat clearing with tsp presentations of thin liquids and immediate wet coughing with straw sip
of thin liquids. When cued to cough, throat clear, and re-swallow, patient was unable to coordinate the movements to do so. This is indicative of suspected receptive aphasia and/ or apraxia (decreased coordination during initiation).
Given the above information, recommend NPO at this time with ARHP of ice chips sparingly with supervision after oral care. Instrumental assessment is recommended to quantify swallowing function and r/o aspiration.
Recommendations:
1) Continuation of NPO
2) Aspiration precautions
3) Vigorous oral care
4) ARHP (ice chips sparingly after oral care with supervision)
5) Instrumental evaluation of swallow (FEES vs VSE)
Plan: WOOD GLUER will continue to follow for dysphagia and speech therapy; pending hospitalization.
[2024-08-08] MEDS: PROTONIX IV 40 MG IV (17:50)
[2024-08-08] MEDS: LIPITOR 80 MG TUBE (19:57)
[2024-08-08] MEDS: NORVASC 2.5 MG TUBE (19:58)
[2024-08-08] MEDS: TYLENOL ORAL SOLUTION 650 MG TUBE (22:02)
[2024-08-09] VITALS (7 sets, daily range): BP systolic 136–184; BP diastolic 59–92; PULSE 101
[2024-08-09] MEDS: VIBRAMYCIN 260 MG IV (02:28)
[2024-08-09 07:07] LABS: Hematocrit 34.6 % (37.0-47.0); Mean Corp Hgb Conc. 34.7 g/dL (33.0-37.0); Mean Corpuscular Hgb 31.1 pg (27.0-31.0); Mean Corpuscular Volume 89.6 fL (81.0-99.0); Mean Platelet Volume 8.4 fL (7.4-10.4); Platelet Count 412 10^3/uL (130-400); Red Blood Cell Count 3.86 10^6/uL (4.20-5.40); Red Cell Dist. Width 12.1 % (11.5-14.5); White Blood Cell Count 10.4 10^3/uL (4.8-10.8)
[2024-08-09 07:40] LABS: Blood Urea Nitrogen 5 mg/dl (7-17); Calcium 9.1 mg/dl (8.4-10.2); Carbon Dioxide 22 mmol/L (22-30); Chloride 103 mmol/L (98-107); Estimated Creatinine Clearance 84 ml/min; Glucose 122 mg/dl (70-99); Magnesium 1.9 mg/dl (1.6-2.3); Phosphorus 3.2 mg/dl (2.5-4.5); Potassium 3.6 mmol/L (3.5-5.1); Sodium 135 mmol/L (135-145); eGFR > 60.00
[2024-08-09] MEDS: KEPPRA 500 MG IV (07:54)
[2024-08-09] MEDS: NORVASC 2.5 MG TUBE (07:54)
[2024-08-09] MEDS: ELIQUIS 5 MG TUBE (07:54)
[2024-08-09] MEDS: PROTONIX IV 40 MG IV (07:54)
[2024-08-09] MEDS: TYLENOL ORAL SOLUTION 650 MG TUBE (07:55)
--- NOTE | 2024-08-09 09:48 | W.PN.CARDCBS ---
Addendum entered and electronically signed by Irma Figueroa DO 08/09/24 15:25:
I saw and examined the patient.
The Department Operations Manager's note was reviewed and I agree with the note.
Comment: Seen and examined this morning following LO. Sister Mila at bedside. Patient has ongoing expressive aphasia following stroke but denied any new symptoms or pain. LO preliminary results discussed with patient and her sister.
GEN: NAD, lying supine. RA
HEENT: mmm
LUNGS: CTA, no wheezes/rales
CV: Reg, S1/S2, no murmur
ABD: soft, BS+, NT/ND
EXT: No edema
NEURO: exp aphasia, R facial droop, R sided weakness
Plan:
Recurrent stroke
-Presented on 08/06/2024 with new aphasia and brain MRI showed Large 5.9 cm acute ischemic infarct in the left MCA with extensive involvement of the posterior left frontal lobe and left insular cortex. Small acute ischemic infarcts in the left
posterior parietal lobe cortical armenta matter, small acute ischemic infarcts in the posterior cortical armenta matter of the right parietal lobe
-She had a recent acute CVA 05/2024 but findings of subacute infarcts on MRI of brain 06/07/2024 [Completed 21 days DAPT with ASA and Plavix]
-Received TNK and admitted to the ICU 08/06/2024.
-Patient had worsening right sided symptoms in the afternoon of 08/06/2024 and was taken for an urgent CT head that did not show intracranial hemorrhage or other significant changes.
-Neurology consulted
-Recommending normotension after the first 24 hours.
- Neurology recommending transition from aspirin to oral anticoagulation due to high risk for additional strokes. Eliquis 5 mg twice daily to start today.
-On Keppra for stroke prophylaxis
-Patient on atorvastatin 80 mg daily with goal LDL less than 70 mg/dL if not ideally 55-60 mg/dL. LDL on admission 124 mg/dL�compliance. Will start ezetimibe 10 mg daily for now. As an outpatient, consider PCSK9 inhibitors.
-Hemoglobin A1c 5.5% June 07, 2024; goal normoglycemia
- PT/OT/speech therapy
- Will need outpatient neurologic follow-up
Cardiology is consulted for recurrent stroke and possible embolic etiology.
-Telemetry reviewed without documented atrial fibrillation. Per family, no history of atrial fibrillation
-Twelve-lead EKG 08/06/2024: Normal sinus rhythm and a normal EKG. Normal intervals
-LO today 08/09/2024 per verbal report with no thrombus or PFO. Await official report
-Transthoracic echocardiogram 06/07/2024: Normal left ventricular size and systolic function with EF vigorous, 70-75% and mild LVH. Normal RV size and systolic function. Normal diastolic function. Normal atrial dimensions. Structurally normal
mitral and tricuspid valves with mild tricuspid insufficiency. Normal trileaflet aortic valve with trace aortic insufficiency. Estimated pulmonary artery pressure 20-25 mmHg. No pericardial effusion. Aortic root normal in size.
- Per neurology recommendations, given high risk of recurrent stroke they are recommending starting anticoagulation. Eliquis 5 mg twice daily starting today.
- Reasonable to do 30-day traffic monitor specialist to assess for occult atrial fibrillation; please notify us about patient's discharge and we will place monitor prior to transfer to rehab
Hypertension�we will start Toprol-XL 25 mg once daily. Continue amlodipine and consider further up titration for goal normotension.
Outpatient cardiac follow-up to be arranged
Discharge planning per primary
Original Note:
Today's Communication / Plan
-
-no thrombus or PFO on LO
-no afib on telemetry this admission and no known history of afib- check 30 day outpt monitor upon discharge
-will arrange f/u with [facility]ology
Impression / Plan
-
PCP:[facility]
Cardiology: None prior to admission
Impression:
Admitted with CVA 08/06/2024
Recent admission for HTN urgency and CVA 06/07/2024 until 06/09/2024
Acute CVA with proximal M2 occlusion by CTA of head 08/06/2024
Small embolic appearing ischemic infarcts in the left caudate nucleus, left gonzalez radiata and bilateral frontal lobes by MRI of brain 06/07/2024.
repeat MRI 08/07/2024: Large 5.9 cm acute ischemic infarct in the left MCA with extensive involvement of the posterior left frontal lobe and left insular cortex. Small acute ischemic infarcts in the left posterior parietal lobe cortical armenta
matter, small acute ischemic infarcts in the posterior cortical armenta matter of the right parietal lobe
Recent treatment for acute CVA but findings of subacute infarcts on MRI of brain 06/07/2024
Possible atrial arrhythmia
PNA, had already started treatment as an outpatient
Hypokalemia
HTN
Hyperlipidemia
Echo 06/07/2024: EF 70 to 75%, mild concentric LVH, mild TR
LO 08/09/2024: Per verbal report, no thrombus, no PFO. Await formal report
Plan:
-Patient came to [facility] ER 08/06/2024 with new aphasia and brain MRI showed Large 5.9 cm acute ischemic infarct in the left MCA with extensive involvement of the posterior left frontal lobe and left insular cortex. Small acute ischemic infarcts in the
left posterior parietal lobe cortical armenta matter, small acute ischemic infarcts in the posterior cortical armenta matter of the right parietal lobe
-Recent treatment for acute CVA 05/2024 but findings of subacute infarcts on MRI of brain 06/07/2024. Completed 21 days DAPT with ASA and Plavix
Recent treatment for acute CVA but also findings of subacute infarcts on MRI of brain 06/07/2024
- Patient was scheduled to follow-up with a small animal veterinarian out of the [facility], but then with worsening aphasia came to [facility] ER 08/06/2024 after her called 911.
- Patient was given TNK and admitted to the ICU 08/06/2024. Patient had worsening right sided symptoms in the afternoon of 08/06/2024 and was taken for an urgent CT head that did not show intracranial hemorrhage or other significant changes.
Cardiology is consulted for recurrent stroke and possible embolic etiology.
-LO today 08/09/2024 per verbal report with no thrombus or PFO.
-No reports of palpitations. Patient's daughter reports family history of CVA, but no known family history of A-fib.
-telemetry: NSR 70-90s, no afib. ECG reviewed by me is SR without acute ST changes. No evidence of atrial arrhythmias on telemetry strips/EKGs 05/2024 admission
-neurology following and advise starting OAC after 48 hrs of new stroke and stopping ASA-started Eliquis 5 mg bid today
-s/p VSE today-pending
-LDL 124 08/07/2024 despite atorvastatin 80 mg daily. Interestingly her LDL is 94 on atorvastatin 10 mg daily last admission, but the dose was increased to 80 mg daily and now the LDL is worse. Perhaps there is an amount of medication noncompliance
contributing to this. Repeat in outpt setting
-Patient's daughter previously reports daily alcohol use, unable to quantify but states likely too much. Patient quit smoking more than 10 years ago and no illicit drug use.
- discharge to rehab facility s/p CVA
Progress Note - Administrative Nursing Supervisor
Subjective
Date of Service: August 09, 2024
-LO today per verbal report: no PFO or thrombus
Objective
Labs:
08/09/24 06:37
08/09/24 06:37
Labs
Hgb 12.0 g/dL (12.0-16.0) 08/09/24 06:37
Hct 34.6 % (37.0-47.0) L 08/09/24 06:37
Plt Count 412 10^3/uL (130-400) H 08/09/24 06:37
PT 14.0 Sec (11.4-14.6) 08/07/24 03:55
INR 1.05 08/07/24 03:55
APTT 30.0 Sec (23.4-35.0) 08/07/24 03:55
Sodium 135 mmol/L (135-145) 08/09/24 06:37
Potassium 3.6 mmol/L (3.5-5.1) 08/09/24 06:37
BUN 5 mg/dl (7-17) L 08/09/24 06:37
Creatinine 0.4 mg/dL (0.6-1.0) L 08/09/24 06:37
Glucose 122 mg/dl (70-99) H 08/09/24 06:37
Troponins
08/06/24
11:42
Troponin I < 0.012
Vital Signs and I&O:
Vital Signs
Temp Pulse Resp BP Pulse Ox
98.5 F 97 20 176/81 97
08/09/24 07:00 08/09/24 07:00 08/09/24 07:00 08/09/24 07:00 08/09/24 07:00
Vital Signs
Temp Pulse Resp BP Pulse Ox
98.5 F 97 20 176/81 97
08/09/24 07:00 08/09/24 07:00 08/09/24 07:00 08/09/24 07:00 08/09/24 07:00
Intake & Output
08/07/24 08/08/24 08/09/24 08/10/24
06:59 06:59 06:59 06:59
Intake Total 600 / 650 1740 / 1740 1000 / 1000
Output Total 1000 / 1000 1200 / 1200 1350 / 1350
Balance -400 / -350 540 / 540 -350 / -350
Physical Exam
Physical Exam
GEN: No distress, awake, Ox3
HEENT: supple, anicteric, mmm
LUNGS: CTA, no wheezes/rales
CV: Reg, S1/S2, no murmur
ABD: soft, BS+, NT/ND
EXT: No edema
NEURO: exp aphasia, R facial droop, R sided weakness
SKIN: No rash
--- NOTE | 2024-08-09 14:15 | PTOTSP ---
Videofluoroscopic Swallow Study
Mild-moderate oral, mild pharyngeal dysphagia secondary to L MCA CVA. See patient care note for details.
Recommend:
1. IDDSI Level 5 Minced and Moist, Thin Liquids
2. Medications: crushed in puree if medically cleared to do so
3. Strategies: Upright to 90 degrees, full supervision, assistance as needed, HEAD TURN TO THE RIGHT when swallowing, small single sips/bites, liquid wash to help clear right side of mouth, oral residue after meals, remain upright after meals
4. Oral care 3x daily
5. Dysphagia therapy at the acute care level and after D/C for education, instruction in compensations, and to improve oral/pharyngeal swallow
--- NOTE | 2024-08-09 15:16 | CM ---
Chart reviewed. Patient being recommended for acute rehab. Physiatry assessment ordered on 08/06, remains pending at this time
Attempted call to [facility] liaison to review patient, left message. Referral placed to YOGESH Nixon in [facility] for review.
Per hospitalist, patient poss ready for d/c tomorrow
Spoke w/ patient and spouse bedside to update
Will need insurance auth
Plan: [facility], await physiatry assessment
--- NOTE | 2024-08-09 15:16 | W.PN.HOSP.TC ---
Today's Communication/Plan
-
Assessment / Plan
Assessment / Plan
NAD
Scleral Anicteric
MMM
No JVD
CTABL
RRR, S1/S2
Soft, NT, ND, BS+
Warm, Dry
AA limited communication, falls, does not verbalize much due to dysphagia negative facial droop, strength 3/5 on right/5/5 on left
Calm
69F HTN HLD hx CVA here for 2nd stroke in 3 months, required TNK and subsequent admission to ICU.
# CVA from left M2 occlusion
#Hyperlipidemia
#suspected embolic source stroke, possible afib though not noted on monitors EKGs here
- Status post TNK
- Initial CT head appreciated new calcification anterior genu Lt MCA, suspicious for calcified embolus, subtle density Lt anterior insula concerning for acute to subacute infarction
- CTA Head/Neck Focal Calcification Lt MCA, M2 portion, significant stenosis of the carotid bulbs or proximal internal carotid arteries bilaterally.
- MRI brain appreciated Large 5.9 cm Acute Ischemic Infarct Lt MCA territory w extensive involvement posterior left frontal lobe and left insular cortex. Smaller acute infarcts Lt posterior parietal lobe. Small acute infarcts right parietal lobe.
Mild cerebral/cerebellar volume loss. Mild cervical disc herniations
- Neurology consult appreciated goal bp <180/105 24h following TNK, then normotension. Hold all antiplatelets anticoagulation 24h then ASA 81 mg daily until anticoagulation.
-as per neuro start anticoagulation with discontinuance of aspirin after 48 hours of new stroke onset due to high risk for additional embolic stroke
-ASA discontinued and Eliquis set to start Friday08/09/24
-Cardio eval appreciated planned for LO completed on 08/09 findings p.o. or for thrombus formation on valves or on appendages
-neuro checks
-cont statin
-Speech eval keep strict NPO, VSE ordered for Fri08/09/24, NGT placed in the meantime (patient and patient's Primo at bedside consented) for meds and possible start nutrition (after LO above)
- DC NGT
- Video swallow completed, IDDSI 5 recommended
-PT/OT consult appreciated Acute Rehab, request PMR consult Friday
Hypokalemia
Hypomagnesemia
-monitor and replete as necessary
#Seizure
-Keppra continued IV
#essential HTn
-labetalol hydralazine prn
-low dose amlodipine 2.5 mg BID w/ holding parameters started
-monitor and titrate antihypertensive regimen as necessary, goal normotensive at this time
#HLD
cont statin
#recent pneumonia
-started on abx 2 days prior to admission
-chest x ray appreciated no acute dz
-completed additional 3 days IV ceftriaxone and doxy, total 5 days abx completed
CODE STATUS: Full code
DVT prophylaxis: scd, eventual start Eliquis Fri08/09/24
PT/OT recommended ARU, physiatry consult
Anticipated Discharge: Within 24 hours
Subjective/Interval History
-
Date of Service: August 09, 2024
Seen and examined. No new complaints. No acute overnight events.
Family member at bedside updated of plan.
Objective Data
-
Labs:
Laboratory Results
08/09/24
06:37
WBC 10.4
Hgb 12.0
Hct 34.6 L
Plt Count 412 H
Sodium 135
Potassium 3.6
Chloride 103
Carbon Dioxide 22
BUN 5 L
Creatinine 0.4 L
Glucose 122 H
Calcium 9.1
Vital Signs:
Vital Signs
Temp Pulse Resp BP Pulse Ox
98.1 F 96 18 157/78 97
08/09/24 11:00 08/09/24 11:00 08/09/24 11:00 08/09/24 11:00 08/09/24 11:00
I&O
08/08/24 08/09/24 08/10/24
06:59 06:59 06:59
Intake Total 1740 / 1740 1000 / 1000
Output Total 1200 / 1200 1350 / 1350
Balance 540 / 540 -350 / -350
[2024-08-09] MEDS: NSS 1000 IV (15:34)
[2024-08-09] MEDS: LIDOCAINE 4% PATCH 1 PATCH TOPICAL (15:34)
[2024-08-09] MEDS: ZETIA 10 MG PO (15:35)
[2024-08-09] MEDS: DIOVAN 320 MG PO (15:35)
[2024-08-09] MEDS: TOPROL XL 25 MG PO (15:35)
[2024-08-09] MEDS: ORETIC 25 MG PO (15:35)
[2024-08-09] MEDS: LIPITOR 80 MG PO (15:37)
[2024-08-09] MEDS: KEPPRA 500 MG PO (19:53)
[2024-08-09] MEDS: NORVASC 2.5 MG PO (19:53)
[2024-08-09] MEDS: ELIQUIS 5 MG PO (19:53)
[2024-08-09] MEDS: TYLENOL ORAL SOLUTION 650 MG PO (21:50)
[2024-08-10 03:00] VITALS: BP 139/75
[2024-08-10] MEDS: TYLENOL ORAL SOLUTION PO (03:29)
[2024-08-10] MEDS: NSS 1000 IV (06:03)
[2024-08-10 06:31] LABS: Hemoglobin 10.9 g/dL (12.0-16.0); Mean Corp Hgb Conc. 35.2 g/dL (33.0-37.0); Mean Corpuscular Hgb 31.3 pg (27.0-31.0); Mean Corpuscular Volume 89.1 fL (81.0-99.0); Mean Platelet Volume 8.5 fL (7.4-10.4); Platelet Count 374 10^3/uL (130-400); Red Blood Cell Count 3.48 10^6/uL (4.20-5.40); Red Cell Dist. Width 12.1 % (11.5-14.5); White Blood Cell Count 9.9 10^3/uL (4.8-10.8)
[2024-08-10 06:56] LABS: Blood Urea Nitrogen 5 mg/dl (7-17); Carbon Dioxide 23 mmol/L (22-30); Chloride 105 mmol/L (98-107); Estimated Creatinine Clearance 84 ml/min; Glucose 137 mg/dl (70-99); Magnesium 1.8 mg/dl (1.6-2.3); Phosphorus 3.2 mg/dl (2.5-4.5); Potassium 3.2 mmol/L (3.5-5.1); Sodium 133 mmol/L (135-145); eGFR > 60.00
[2024-08-10 07:00] VITALS: BP 124/50
[2024-08-10] MEDS: TOPROL XL 25 MG PO (08:43)
[2024-08-10] MEDS: NORVASC 2.5 MG PO ×2 (08:43→19:32)
[2024-08-10] MEDS: PROTONIX 40 MG PO (08:43)
[2024-08-10] MEDS: ORETIC 25 MG PO (08:43)
[2024-08-10] MEDS: ZETIA 10 MG PO (08:43)
[2024-08-10] MEDS: ELIQUIS 5 MG PO ×2 (08:43→19:31)
[2024-08-10] MEDS: KEPPRA 500 MG PO ×2 (08:43→19:31)
[2024-08-10] MEDS: DIOVAN 320 MG PO (08:44)
[2024-08-10] MEDS: LIDOCAINE 4% PATCH 1 PATCH TOPICAL (08:44)
--- NOTE | 2024-08-10 09:21 | PN.CDI ---
CDI
- -
CDI:
Physician Documentation Request
Admit Date: 08/06/24 12:42
Dear Doctor Rafael,
Clinical Indicators:
Patient admitted with CVA.
Sodium level on admission: 124
NiHSS scores: 11-15
08/07 Brain MRI, 'The largest area of acute infarction demonstrating both restricted diffusion and containing cytotoxic edema measures 5.3 x 3.2 x 5.9 cm in AP, transverse, and in a caudal dimensions. The acute cytotoxic edema in the left frontal
lobe causes sulcal effacement.'
Please indicate in your progress notes if you are in agreement that the above diagnosis is valid for this patient:
Cytotoxic edema is a valid diagnosis (Please include it in your progress notes)
Cytotoxic edema is not a valid diagnosis for this patient
Other, please specify
Use of terms such as suspected, likely, concern for, or probable are acceptable for a diagnosis that is being evaluated, monitored or treated as if it exists and can be coded in the inpatient setting, when documented at the time of discharge.
Thank you,
RAVINDER Reece RN
CDI Specialist
available via tiger text
Please use your independent medical judgment in providing your response.
[2024-08-10 11:00] VITALS: BP 149/70
--- NOTE | 2024-08-10 11:54 | W.PN.HOSP.TC ---
Addendum entered and electronically signed by Hieu Hall MD 08/10/24 13:59:
Cytotoxic edema is not a valid diagnosis for this patient
Original Note:
Today's Communication/Plan
-
Assessment / Plan
Assessment / Plan
NAD
Scleral Anicteric
MMM
No JVD
CTABL
RRR, S1/S2
Soft, NT, ND, BS+
Warm, Dry
AA limited communication, falls, does not verbalize much due to dysphagia negative facial droop, strength 3/5 on right/5/5 on left
Calm
69F HTN HLD hx CVA here for 2nd stroke in 3 months, required TNK and subsequent admission to ICU.
# CVA from left M2 occlusion
#Hyperlipidemia
#suspected embolic source stroke, possible afib though not noted on monitors EKGs here
- Status post TNK
- Initial CT head appreciated new calcification anterior genu Lt MCA, suspicious for calcified embolus, subtle density Lt anterior insula concerning for acute to subacute infarction
- CTA Head/Neck Focal Calcification Lt MCA, M2 portion, significant stenosis of the carotid bulbs or proximal internal carotid arteries bilaterally.
- MRI brain appreciated Large 5.9 cm Acute Ischemic Infarct Lt MCA territory w extensive involvement posterior left frontal lobe and left insular cortex. Smaller acute infarcts Lt posterior parietal lobe. Small acute infarcts right parietal lobe.
Mild cerebral/cerebellar volume loss. Mild cervical disc herniations
- Neurology consult appreciated goal bp <180/105 24h following TNK, then normotension. Hold all antiplatelets anticoagulation 24h then ASA 81 mg daily until anticoagulation.
-as per neuro start anticoagulation with discontinuance of aspirin after 48 hours of new stroke onset due to high risk for additional embolic stroke
-ASA discontinued and Eliquis set to start Friday08/09/24
-Cardio eval appreciated planned for LO completed on 08/09 findings p.o. or for thrombus formation on valves or on appendages
-neuro checks
-cont statin
- Video swallow completed, IDDSI 5 recommended
-PT/OT consult appreciated Acute Rehab, request PMR consult Friday
Hypokalemia
Hypomagnesemia
-monitor and replete as necessary
#Seizure
-Keppra continued IV
#essential HTn
-labetalol hydralazine prn
-low dose amlodipine 2.5 mg BID w/ holding parameters started
-monitor and titrate antihypertensive regimen as necessary, goal normotensive at this time
#HLD
cont statin
#recent pneumonia
-started on abx 2 days prior to admission
-chest x ray appreciated no acute dz
-completed additional 3 days IV ceftriaxone and doxy, total 5 days abx completed
CODE STATUS: Full code
DVT prophylaxis: scd, eventual start Eliquis Fri08/09/24
PT/OT recommended ARU, physiatry consult
Anticipated Discharge: Within 24 hours
Subjective/Interval History
-
Date of Service: August 10, 2024
Seen and examined. No new complaints. No acute overnight events.
Objective Data
-
Labs:
Laboratory Results
08/10/24
06:04
WBC 9.9
Hgb 10.9 L
Hct 31.0 L
Plt Count 374
Sodium 133 L
Potassium 3.2 L
Chloride 105
Carbon Dioxide 23
BUN 5 L
Creatinine 0.4 L
Glucose 137 H
Calcium 9.0
Vital Signs:
Vital Signs
Temp Pulse Resp BP Pulse Ox
97.9 F 82 18 149/70 98
08/10/24 11:00 08/10/24 11:00 08/10/24 11:00 08/10/24 11:00 08/10/24 11:00
I&O
08/09/24 08/10/24 08/11/24
06:59 06:59 06:59
Intake Total 1000 / 1000 1740 / 1740
Output Total 1350 / 1350 2150 / 2150
Balance -350 / -350 -410 / -410
--- NOTE | 2024-08-10 12:15 | W.PN.CARDCBS ---
Addendum entered and electronically signed by Kartik Miranda DO 08/10/24 12:37:
I saw and examined the patient.
The Transfer Man's note was reviewed and I agree with the note.
Comment:
Plan:
Outpt follow up with cardiology, Dr Degroot to be arranged.
Continue anticoagulation
Could consider monitor as outpt to assess for AFib but would not project management it specialist with regards to anticoagulation.
Awaiting [facility]
Discussed with family at bedside.
Please recall if needed.
Original Note:
Today's Communication / Plan
-
-will hold off on outpt holter monitor for now since on oral anticoagulation. reconsider in outpt setting or if develops palps
-await [facility] placement
-f/u with [facility] arranged.
Impression / Plan
-
PCP:[facility]
Cardiology: None prior to admission. First see by Dr Degroot
Impression:
Admitted with CVA 08/06/2024
Recent admission for HTN urgency and CVA 06/07/2024 until 06/09/2024
Acute CVA with proximal M2 occlusion by CTA of head 08/06/2024
Small embolic appearing ischemic infarcts in the left caudate nucleus, left gonzalez radiata and bilateral frontal lobes by MRI of brain 06/07/2024.
repeat MRI 08/07/2024: Large 5.9 cm acute ischemic infarct in the left MCA with extensive involvement of the posterior left frontal lobe and left insular cortex. Small acute ischemic infarcts in the left posterior parietal lobe cortical armenta
matter, small acute ischemic infarcts in the posterior cortical armenta matter of the right parietal lobe
Recent treatment for acute CVA but findings of subacute infarcts on MRI of brain 06/07/2024
Possible atrial arrhythmia
PNA, had already started treatment as an outpatient
Hypokalemia
HTN
Hyperlipidemia
Echo 06/07/2024: EF 70 to 75%, mild concentric LVH, mild TR
LO 08/09/2024: no MICHELLE thrombus, no PFO, nl biventricular size and fxn, LVEF 60-65%
Plan:
-recurrent stroke-
-Patient came to [facility] ER 08/06/2024 with new aphasia and brain MRI showed Large 5.9 cm acute ischemic infarct in the left MCA with extensive involvement of the posterior left frontal lobe and left insular cortex. Small acute ischemic infarcts in the
left posterior parietal lobe cortical armenta matter, small acute ischemic infarcts in the posterior cortical armenta matter of the right parietal lobe
-Recent treatment for acute CVA 05/2024 but findings of subacute infarcts on MRI of brain 06/07/2024. Completed 21 days DAPT with ASA and Plavix
Recent treatment for acute CVA but also findings of subacute infarcts on MRI of brain 06/07/2024
- Patient was scheduled to follow-up with a machine captain out of the [facility], but then with worsening aphasia came to [facility] ER 08/06/2024 after her called 911.
- Patient was given TNK and admitted to the ICU 08/06/2024. Patient had worsening right sided symptoms in the afternoon of 08/06/2024 and was taken for an urgent CT head that did not show intracranial hemorrhage or other significant changes.
Cardiology is consulted for recurrent stroke and possible embolic etiology.
-LO 08/09/2024: no MICHELLE thrombus, no PFO, nl biventricular size and fxn, LVEF 60-65%
-no afib on telemetry, remains in NSR 70-80s. No known h/o afib or h/o palpitations. No evidence of atrial arrhythmias on telemetry strips/EKGs 05/2024 admission
-neurology following and advise starting OAC after 48 hrs of new stroke and stopping ASA-started Eliquis 5 mg bid 08/09/2024
-s/p VSE 08/09/2024: airway aspiration with thin liquids
-PT/OT/ST
-on Keppra for seizure prophylaxis
-plan for discharge to [facility]
-Goal normotension. added Toprol 25 mg daily for HTN on 08/09/2024. Continue in addition to Valsartan 320 mg daily, HCTZ 25 mg daily, and Amlodipine 2.5 mg bid
-LDL 124 08/07/2024 despite atorvastatin 80 mg daily. Interestingly her LDL is 94 on atorvastatin 10 mg daily last admission, but the dose was increased to 80 mg daily and now the LDL is worse. Perhaps there is an amount of medication noncompliance
contributing to this. Zetia added 08/09/2024
-cardiology was initially considering 1 month holter monitor at time of discharge. Since she is already on eliquis, will hold off on monitor and readdress in outpt setting.
- discharge to acute rehab facility s/p CVA
-discussed with and nurse at bedside
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
Subjective
Date of Service: August 10, 2024
-remains in NSR
-on Eliquis
-anticipating discharge to [facility]
-Toprol added 08/09/2024 for HTN
Objective
Labs:
08/10/24 06:04
08/10/24 06:04
Labs
Hgb 10.9 g/dL (12.0-16.0) L 08/10/24 06:04
Hct 31.0 % (37.0-47.0) L 08/10/24 06:04
Plt Count 374 10^3/uL (130-400) 08/10/24 06:04
PT 14.0 Sec (11.4-14.6) 08/07/24 03:55
INR 1.05 08/07/24 03:55
APTT 30.0 Sec (23.4-35.0) 08/07/24 03:55
Sodium 133 mmol/L (135-145) L 08/10/24 06:04
Potassium 3.2 mmol/L (3.5-5.1) L 08/10/24 06:04
BUN 5 mg/dl (7-17) L 08/10/24 06:04
Creatinine 0.4 mg/dL (0.6-1.0) L 08/10/24 06:04
Glucose 137 mg/dl (70-99) H 08/10/24 06:04
Vital Signs and I&O:
Vital Signs
Temp Pulse Resp BP Pulse Ox
97.9 F 82 18 149/70 98
08/10/24 11:00 08/10/24 11:00 08/10/24 11:00 08/10/24 11:00 08/10/24 11:00
Vital Signs
Temp Pulse Resp BP Pulse Ox
97.9 F 82 18 149/70 98
08/10/24 11:00 08/10/24 11:00 08/10/24 11:00 08/10/24 11:00 08/10/24 11:00
Intake & Output
08/08/24 08/09/24 08/10/24 08/11/24
06:59 06:59 06:59 06:59
Intake Total 1740 / 1740 1000 / 1000 1740 / 1740
Output Total 1200 / 1200 1350 / 1350 2150 / 2150
Balance 540 / 540 -350 / -350 -410 / -410
Physical Exam
Physical Exam
GEN: No distress, awake,
HEENT: supple, anicteric, mmm
LUNGS: CTA, no wheezes/rales
CV: Reg, S1/S2, no murmur
ABD: soft, BS+, NT/ND
EXT: No edema
NEURO:exp aphasia, R facial droop, R sided weakness
SKIN: No rash
--- NOTE | 2024-08-10 12:52 | CM ---
Addendum entered by Carolyn Smyth 08/10/24 12:57:
Auth case # [id number]
Original Note:
Per Pedro/[facility]uss[facility] liaison, patient seems appropriate for acute rehab. No beds available today, possibly tomorrow
Auth initiated w/ JAN Alanis, called [phone], spoke w/ Jeremy. Instructed to fax clinicals to be reviewed
faxed clinicals to [phone]. Will await determination
Updated patient and family bedside
Plan: [facility] BETTS, pending auth
[2024-08-10 15:59] VITALS: BP 120/55
[2024-08-10] MEDS: LIPITOR 80 MG PO (17:27)
[2024-08-10] MEDS: TYLENOL ORAL SOLUTION 650 MG PO (17:27)
[2024-08-10 19:29] VITALS: BP 118/55
[2024-08-10 23:07] VITALS: BP 113/60
[2024-08-11] MEDS: TYLENOL ORAL SOLUTION 650 MG PO ×2 (03:00→08:40)
[2024-08-11 04:17] VITALS: BP 141/64
--- NOTE | 2024-08-11 04:18 | DOWNTIME ---
Addendum entered by Terra Olivares RN 08/11/24 14:21:
Correction: Downtime was 08/11/2024 from 0100 to 08/11/2024 at 0415
Original Note:
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 Downtime documentation of patient's care, including medication administrations, has been reconciled in the electronic record per guidelines. Refer to the
patient's paper chart under the miscellaneous tab to see printed paper medication records and downtime forms.
[2024-08-11 07:00] VITALS: BP 118/60
[2024-08-11 07:56] LABS: Hematocrit 30.7 % (37.0-47.0); Hemoglobin 10.8 g/dL (12.0-16.0); Mean Corp Hgb Conc. 35.2 g/dL (33.0-37.0); Mean Corpuscular Hgb 31.4 pg (27.0-31.0); Mean Corpuscular Volume 89.2 fL (81.0-99.0); Mean Platelet Volume 8.8 fL (7.4-10.4); Platelet Count 356 10^3/uL (130-400); Red Blood Cell Count 3.44 10^6/uL (4.20-5.40); Red Cell Dist. Width 12.1 % (11.5-14.5); White Blood Cell Count 6.3 10^3/uL (4.8-10.8)
[2024-08-11] MEDS: NORVASC 2.5 MG PO (08:11)
[2024-08-11] MEDS: DIOVAN 320 MG PO (08:12)
[2024-08-11] MEDS: ELIQUIS 5 MG PO (08:12)
[2024-08-11] MEDS: PROTONIX 40 MG PO (08:12)
[2024-08-11] MEDS: ZETIA 10 MG PO (08:12)
[2024-08-11] MEDS: KEPPRA 500 MG PO (08:12)
[2024-08-11] MEDS: TOPROL XL 25 MG PO (08:13)
[2024-08-11] MEDS: ORETIC 25 MG PO (08:13)
[2024-08-11] MEDS: LIDOCAINE 4% PATCH 1 PATCH TOPICAL (08:13)
[2024-08-11 08:30] LABS: Blood Urea Nitrogen 7 mg/dl (7-17); Carbon Dioxide 24 mmol/L (22-30); Chloride 102 mmol/L (98-107); Estimated Creatinine Clearance 84 ml/min; Glucose 126 mg/dl (70-99); Magnesium 1.7 mg/dl (1.6-2.3); Phosphorus 3.9 mg/dl (2.5-4.5); Potassium 3.3 mmol/L (3.5-5.1); Sodium 133 mmol/L (135-145); eGFR > 60.00
[2024-08-11] MEDS: KCL 40 MEQ PO (08:54)
--- NOTE | 2024-08-11 09:25 | CM ---
CM called Zeke to check auth status. Spoke w/ Gume who stated auth has been approved beginning 08/10-08/16
Auth case # [id number]. Hussain to fax updates to [phone] for concurrent review
Spoke elizabeth/ Pedro/Hussain soria, provided auth info, she confirmed that a bed is available for patient today and can transfer any time
Updated hospitalist
Updated patient and family
YOGESH BETTS
Report: [phone]

Plan: [facility] BETTS today
--- NOTE | 2024-08-11 09:50 | CON.MD ---
Consultation - Medical
-
Referring Provider:�Rafael Villanueva
Chief Complaint:�CVA
�
History of Present Illness:�69-year-old female with PMH of (HTN, hyperlipidemia, prior stroke) presented to [facility] ER on 08/06/2024 with new aphasia and brain MRI showed Large 5.9 cm acute ischemic infarct in the left MCA with extensive involvement of
the posterior left frontal lobe and left insular cortex. Small acute ischemic infarcts in the left posterior parietal lobe cortical armenta matter, small acute ischemic infarcts in the posterior cortical armenta matter of the right parietal lobe
-Recently treated for acute CVA in 05/2024 with findings of subacute infarcts on MRI of brain 06/07/2024. Completed 21 days DAPT with ASA and Plavix
- Patient was scheduled to follow-up with a dinkey press operator out of the [facility], but with worsening aphasia came to [facility] ER 08/06/2024 after her called 911.
- Patient was given TNK and admitted to the ICU 08/06/2024. Patient had worsening right sided symptoms in the afternoon of 08/06/2024 and was taken for an urgent CT head that did not show intracranial hemorrhage or other significant changes.
Cardiology is consulted for recurrent stroke and possible embolic etiology.
-LO 08/09/2024: no MICHELLE thrombus, no PFO, nl biventricular size and fxn, LVEF 60-65%
-no afib on telemetry, remains in NSR 70-80s. No known h/o afib or h/o palpitations. No evidence of atrial arrhythmias on telemetry strips/EKGs 05/2024 admission
-neurology following and advise starting OAC after 48 hrs of new stroke and stopping ASA-started Eliquis 5 mg bid 08/09/2024
-s/p VSE 08/09/2024: airway aspiration with thin liquids
-PT/OT/ST
-on Keppra for seizure prophylaxis started during last admission
Past Medical History:�hypertension, hyperlipidemia,
Procedure History:LEEP, arthroscopy, left hip replacement�
Family History:�CAD (Maternal grandmother) and Diabetes (Paternal grandfather + paternal grandmother)
�
Social History:�
Functional Level Premorbidly:�Independent with all activities�
Functional Level Currently:�Bed mobility�supine to sit�supervision, rolling�min assist, transfer�min assist, ambulated 16 feet x 2 with a hemiwalker�min assist, slow speed with step to gait pattern, increased lateral sway, decreased bilateral hip
extension, cues for upright posture, grooming�supervision, toileting�mod assist, lower extremity self-care�min assist, toilet transfer�min assist, bed mobility�supervision,
�
Tobacco:�Denies�
Alcohol:�Denies�
Drug use:�Denies�
�
Lives with:�Spouse
24-hour assistance
# steps to enter:4�
# steps to second floor: FF
Potential First floor set up:�Yes
Driving:�yes
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
�
�
Allergies:�
Allergy/AdvReac Type Severity Reaction Status Date / Time
penicillin G (Penicillin G) Allergy YEAST Verified 06/06/24 21:13
INFECTIONS
�
Review of Systems:�
Constitutional: (x) Normal _
Eye: (x) Normal _
Ear/Nose/Throat: (x) Normal _
Respiratory: (x) Normal _
Cardiovascular: (x) Normal _
Gastrointestinal: (x) Normal _
Genitourinary: (x) Normal _
Musculoskeletal: (x) abNormal _left weakness
Integumentary: (x) Normal _
Neurologic: (x) abNormal _CVA, aphasia,
Psychiatric: (x) Normal _
Endocrine: (x) Normal _
Hematologic/Lymphatic: (x) Normal _
Allergic/Immunologic: (x) Normal _
�
Medications:�
Active Current Visit Medication List
Category Date Time Status
Acetaminophen [Tylenol Oral Solution] Med 08/09/24 15:15 Active
650 mg PO Q4HPRN PRN
Amlodipine [Norvasc] Med 08/09/24 20:00 Active
2.5 mg PO BID
Apixaban [Eliquis] Med 08/09/24 20:00 Active
5 mg PO BID
Atorvastatin [Lipitor] Med 08/09/24 15:15 Active
80 mg PO QPM
Ezetimibe [Zetia] Med 08/09/24 16:00 Active
10 mg PO DAILY
Flush (0.9% Sodium Chloride) [Flush (Nss)] Med 08/06/24 18:00 Active
See Dose Instructions IV PER PROTOCOL
Hydrochlorothiazide [Oretic] Med 08/09/24 16:00 Active
25 mg PO DAILY
Levetiracetam [Keppra] Med 08/09/24 20:00 Active
500 mg PO BID
Lidocaine [Lidocaine 4% Patch] Med 08/09/24 15:15 Active
1 patch TOPICAL DAILY
Metoprolol Xl [Toprol Xl] Med 08/09/24 16:00 Active
25 mg PO DAILY
Pantoprazole [Protonix] Med 08/10/24 08:00 Active
40 mg PO DAILY
Remove Patch [Remove Lidocaine Patch] Med 08/09/24 20:00 Active
See Dose Instructions REMOVE DAILY@2000
Valsartan [Diovan] Med 08/09/24 16:00 Active
320 mg PO DAILY
�
Vitals:�
Temp Pulse Resp BP Pulse Ox
97.7 F 77 19 118/60 98
08/11/24 07:00 08/11/24 07:00 08/11/24 07:00 08/11/24 07:00 08/11/24 07:00
Height 5 ft 7 in
Actual Weight 66.8 kg
Body Mass Index (BMI) 23.1
�
Physical Exam:�
General Appearance/Observation: Well-developed, well-nourished individual in no apparent distress.�
Pain/Comfort Assessment: Denies�
Mood/Affect: Appropriate, pleasant, smiling
�
Integumentary/Operative Site:�
�� Pressure Ulcer Evaluation: absent over heels.�
��
�� Other Type of Wound: absent�
��
�
Eyes: Conjunctiva/Lids: normal���� Pupils: pupils equal round and reactive to light and Accommodation�
Ears/Nose/Throat: oral mucosa moist,� throat clear.������������ Lips/Teeth/Gums: normal�
Neck: No muscle spasm or tenderness�
Cardiovascular: Heart: regular, no murmur�
Pulses: dorsalis pedis 2+ bilaterally�
Respiratory: Respiratory Effort/Chest Expansion: normal������� Auscultation: Clear to auscultation bilaterally�
Gastrointestinal: abdomen not tender, no distension, normal abdominal bowel sounds
Genitourinary: No Dao�
Extremities:�Edema: None�Cyanosis: None�Trophic�changes: legs
�varicose veins - LLE
Neurology Exam:
Orientation: Alert, Oriented to self, Time, Place�: able to answer correctly with a nod when given choices
Memory: aphasis
Comprehension: Intact
Two step command: Does better with 1 step command
Naming: Intact- if given choices and nods correct answer
Cranial Nerves:
�� CNII:�Pupillary light reflex: Intact����Visual Field: possibly visual impairment b/l
�� CN III, IV, : Extraocular muscles: Intact�
�� CN V:�Facial Sensation�at�Forehead: Intact,�Maxilla: Intact,�Mandible: Intact
�� CN VII:�Facial movement: Symmetric
�� CN VIII:�Hearing: Normal
�� CN IX/X:�Speech & swallow: aphasia, �position of Uvula: Midline
�� CN XI:�Shoulder shrug: Symmetric, but weakness
�� CN XII:�Tongue protrusion: Midline
Sensory:
�� Light touch: Intact in bilateral upper and lower extremities
��
�
Reflexes:
�� Biceps: 1+ bilaterally
�� Brachioradialis: 2+ bilaterally
�� Triceps: 1+ bilaterally
�� Patellar: 2+ bilaterally
�� Achilles:absent bilaterally
�� Babinski: Down going bilaterally
�� Clonus: None
�� Sarah: Negative bilaterally�
Cerebellar: Dysmetria/Ataxia: right, unable to isolate 1 digit to touch nose to finger as well.
Musculoskeletal:
Motor: (Manual muscle scale 0-5)�
Muscle SA EF WE EE FF FA HF KE DF EHL PF
Right� 5 4 3+ 4- 3+ 3+ 4 4 5 5 4
Left 5 5 5 5 5 5 5 5 5 5 5
�
Tone: Normal in all extremities�
Range of Motion: Passively within normal limits
�
Lab Results
Labs
WBC 6.3 10^3/uL (4.8-10.8) 08/11/24 06:43
RBC 3.44 10^6/uL (4.20-5.40) L 08/11/24 06:43
Hgb 10.8 g/dL (12.0-16.0) L 08/11/24 06:43
Hct 30.7 % (37.0-47.0) L 08/11/24 06:43
MCV 89.2 fL (81.0-99.0) 08/11/24 06:43
MCH 31.4 pg (27.0-31.0) H 08/11/24 06:43
MCHC 35.2 g/dL (33.0-37.0) 08/11/24 06:43
RDW 12.1 % (11.5-14.5) 08/11/24 06:43
Plt Count 356 10^3/uL (130-400) 08/11/24 06:43
MPV 8.8 fL (7.4-10.4) 08/11/24 06:43
Abs Immat Gran (auto) 0.0 10^3/uL (0-0.05) 08/06/24 11:42
Absolute Neuts (auto) 5.1 10^3/uL (1.4-6.5) 08/06/24 11:42
Absolute Lymphs (auto) 1.9 10^3/uL (1.2-3.4) 08/06/24 11:42
Absolute Monos (auto) 1.0 10^3/uL (0.1-0.6) H 08/06/24 11:42
Absolute Eos (auto) 0.0 10^3/uL (0-0.7) 08/06/24 11:42
Absolute Basos (auto) 0.0 10^3/uL (0-0.2) 08/06/24 11:42
Immature Gran % 0.5 % (0-0.5) 08/06/24 11:42
Neutrophils % 64.1 % (42.2-75.2) 08/06/24 11:42
Lymphocytes % 23.5 % (20.5-51.1) 08/06/24 11:42
Monocytes % 11.8 % (1.7-9.3) H 08/06/24 11:42
Eosinophils % 0.0 % (0-6) 08/06/24 11:42
Basophils % 0.1 % (0-2) 08/06/24 11:42
Nucleated RBC % 0 % 08/06/24 11:42
PT 14.0 Sec (11.4-14.6) 08/07/24 03:55
INR 1.05 08/07/24 03:55
APTT 30.0 Sec (23.4-35.0) 08/07/24 03:55
Sodium 133 mmol/L (135-145) L 08/11/24 06:43
Potassium 3.3 mmol/L (3.5-5.1) L 08/11/24 06:43
Chloride 102 mmol/L (98-107) 08/11/24 06:43
Carbon Dioxide 24 mmol/L (22-30) 08/11/24 06:43
BUN 7 mg/dl (7-17) 08/11/24 06:43
Creatinine 0.4 mg/dL (0.6-1.0) L 08/11/24 06:43
Estimated Creat Clear 84 ml/min 08/11/24 06:43
eGFR > 60.00 08/11/24 06:43
Glucose 126 mg/dl (70-99) H 08/11/24 06:43
Calcium 9.0 mg/dl (8.4-10.2) 08/11/24 06:43
Phosphorus 3.9 mg/dl (2.5-4.5) 08/11/24 06:43
Magnesium 1.7 mg/dl (1.6-2.3) 08/11/24 06:43
Total Bilirubin 0.5 mg/dl (0.2-1.3) 08/08/24 05:07
Direct Bilirubin 0.5 mg/dl (0.0-0.4) H 08/08/24 05:07
AST 21 U/L (14-36) 08/08/24 05:07
ALT 35 U/L (0-35) 08/08/24 05:07
Alkaline Phosphatase 81 U/L (38-126) 08/08/24 05:07
Troponin I < 0.012 ng/ml 08/06/24 11:42
Total Protein 5.8 g/dl (6.3-8.2) L 08/08/24 05:07
Albumin 3.3 g/dl (3.5-5.0) L 08/08/24 05:07
Triglycerides 123 mg/dl (10-149) 08/07/24 03:55
Total Cholesterol 174 mg/dl (50-199) 08/07/24 03:55
LDL Cholesterol, Calc 124 mg/dl 08/07/24 03:55
VLDL Cholesterol, Calc 24 mg/dl (0-30) 08/07/24 03:55
HDL Cholesterol 26 mg/dl 08/07/24 03:55
Urine Color Cancelled 08/06/24 11:42
Urine Clarity Cancelled 08/06/24 11:42
Urine pH Cancelled 08/06/24 11:42
Ur Specific [place] Cancelled 08/06/24 11:42
Urine Ketones Cancelled 08/06/24 11:42
Ur Occult Blood Reflex Cancelled 08/06/24 11:42
Urine Nitrite (Reflex) Cancelled 08/06/24 11:42
Urine Bilirubin Cancelled 08/06/24 11:42
Urine Urobilinogen Cancelled 08/06/24 11:42
Leukocyte Esterase Rfl Cancelled 08/06/24 11:42
Urine Osmolality 206 mOsm/kg (300-900) L 08/06/24 21:24
Urine Sodium 34 mmol/L (30-90) 08/06/24 21:24
Urine Glucose Cancelled 08/06/24 11:42
Urine Albumin (Reflex) Cancelled 08/06/24 11:42
POC Glucose 162 mg/dl (70-99) H 08/06/24 11:08
�
Diagnostic Results:�as per HPI�
�Neuro Imaging:
1. CT Head 08/06/24: New calcification near the anterior genu of the left middle cerebral artery, suspicious for calcified embolus. Subtle decreased density involving the left anterior insula, suspicious for acute to subacute infarction. ASPECT
score: 9.
2. CTA Head/Neck 08/06/24: Focal calcification involving the left middle cerebral artery, within the superior division just past the bifurcation. This would be within the proximal M2 portion of the left middle cerebral artery. Hypoplastic A1 segment
of the right anterior cerebral artery. Calcific atherosclerotic disease, with no evidence for hemodynamically significant stenosis of the carotid bulbs or proximal internal carotid arteries bilaterally. Dominant left vertebral artery with smaller
caliber right vertebral artery. No significant narrowing of the vertebral or basilar arteries.
3. CT Perfusion 08/06/24: 26cc ischemic penumbra, 0 ischemic core.
Echo 06/07/2024: EF 70 to 75%, mild concentric LVH, mild TR
LO 08/09/2024: no MICHELLE thrombus, no PFO, nl biventricular size and fxn, LVEF 60-65%
Assessment
�
Plan�
PM&R�PT/OT to increase independence with ADLs, improve balance, coordination, endurance, strength, mobility, community reintegration, decreased burden of care on others and family education.�
�
CVA: left M2 occlusion. suspected embolic source stroke, possible afib though not noted on monitors EKGs here .ASA discontinued and Eliquis 2.5mg bid started on 08/09 and blood pressure control (SBP less than 180 and diastolic less than 100 to
participate with therapy for ischemic stroke). Continue to monitor neurologic status.�
Right dominant hemiparesis: High risk for falls and sliding out of chair/bed. Safety reinforced.�
- Avoid using affected arm to help lift or pull patient as this will cause trauma to the shoulder.
�Dysphagia: Video swallow completed- IDDSI 5 recommended. speech evaluation, oral care protocol, aspiration precautions.� Advance diet as tolerated.�
Dysarthria: speech evaluation�
Aphasia: speech evaluation�
Seizure-Keppra 500mg bid
HTN: Amlodipine 2.5 mg BID w/ holding parameters. Metoprolol XL 25 daily, valsartan 320 mg daily, hydrochlorothiazide 25 mg daily continue medications, monitor closely�
HLD: Zetia 10mg qd
Hypokalemia: Replenish as needed
recent pneumonia: started on abx 2 days prior to admission-chest x ray appreciated no acute dz. -completed additional 3 days IV ceftriaxone and doxy, total 5 days abx completed
Atrial fibrillation:� : not on telemetry. OP cardiology follow up for further testing��������������������������������������
CHF: EF %, beta caty, monitor fluid status�
Anemia: Likely multifactorial.� Continue to monitor.�
Psych: Psychology consult.� Monitor mood, adjust medications as needed.�
Skin: monitor for pressure sores/rashes/lesions.�
Pain: acetaminophen as needed.� Lidocaine patch
Bowel: Colace and Senna, PRN bisacodyl.�
Bladder: Time void, PVRs, PRN straight cath.�
GI Prophylaxis: Pantoprazole�40 mg daily
DVT Prophylaxis: Eliquis 2.5 mg twice daily
Pulmonary: Incentive spirometry�
Safety: Continue to reinforce assistance with all transfers.�
Code Status:� Full code
Dispo�(date/plan/equipment needs): Home with family care.� Social history reviewed.�
�
Functional and Medical Goals:�Modified Independent with ADL�s, ambulation, transfers�
�
�
Discharge Destination:�Acute inpatient
CVA: (SBP less than 180 and diastolic less than 100 to participate with therapy for ischemic stroke). Continue to monitor neurologic status.�
Bowel: Colace and Senna, PRN bisacodyl.�
Pulmonary: Incentive spirometry�
�
Safety: Continue to reinforce assistance with all transfers.��
Thank you for allowing me to care for your patient. Please contact me with any questions or concerns.
[2024-08-11 11:05] VITALS: BP 134/63
[2024-08-11 11:39] VITALS: BP 101/57
--- NOTE | 2024-08-11 14:37 | W.DCSUMMARY ---
Discharge Summary
Discharge Data
Date of Admission: 08/06/24
Date of Discharge: 08/11/24
-
Pending Results: No
Hospital Course
69-year-old female with a past medical history of hypertension, hyperlipidemia, prior stroke
Presented with new aphasia found to have a large 5.9 cm acute ischemic infarct of the left MCA with extensive involvement of the posterior left frontal lobe and left insular cortex. Evaluated by neurology recommended TNK and therefore was given TNK
admitted to the ICU. Additionally, recommended no further aspirin and start Eliquis after 24 hours of TNK administration. LO demonstrated no MICHELLE thrombus, no PFO normal biventricular size and function. No atrial fibrillation on telemetry.
Evaluated by physical therapy Occupational Therapy speech therapy. Recommended acute inpatient rehab therefore evaluated by physiatry which she agreed.
Outpatient follow-up with cardiology neurology and PCP
May require/may consider monitor as outpatient to assess for A-fib
Head CT
IMPRESSION:
New calcification near the anterior genu of the left middle cerebral artery, suspicious for calcified embolus.
Subtle decreased density involving the left anterior insula, suspicious for acute to subacute infarction.
Head/Neck CT
IMPRESSION: Focal calcification involving the left middle cerebral artery, within the superior division just past the bifurcation. This would be within the proximal M2 portion of the left middle cerebral artery.
Hypoplastic A1 segment of the right anterior cerebral artery.
Calcific atherosclerotic disease, with no evidence for hemodynamically significant stenosis of the carotid bulbs or proximal internal carotid arteries bilaterally.
Dominant left vertebral artery with smaller caliber right vertebral artery. No significant narrowing of the vertebral or basilar arteries.
Head CT
IMPRESSION:
Previous findings concerning for a small acute to subacute infarct in the left insula are stable/slightly improved.
Stable calcification about the left middle cerebral artery suggestive of a calcified embolus.
Limited exam with IV contrast from earlier exam. See above
Brain MRI
IMPRESSION:
1. LARGE 5.9 CM ACUTE ISCHEMIC INFARCT in the LEFT MIDDLE CEREBRAL ARTERY TERRITORY with extensive involvement of the POSTERIOR LEFT FRONTAL LOBE and LEFT INSULAR CORTEX.
2. Smaller acute ischemic infarcts in the left posterior parietal lobe cortical armenta matter.
3. Small acute ischemic infarcts in the posterior cortical armenta matter of the right parietal lobe.
4. Mild diffuse cerebral and cerebellar volume loss.
5. Mild multilevel cervical spinal cord compression and central canal stenosis secondary to disc herniations and facet joint arthrosis.
Was seen on the day of discharge. No new complaints. No acute overnight events.
NAD
Scleral Anicteric
MMM
No JVD
CTABL
RRR, S1/S2
Soft, NT, ND, BS+
Warm, Dry
AA limited communication, falls, does not verbalize much due to dysphagia negative facial droop, strength 3/5 on right/5/5 on left
Calm
69F HTN HLD hx CVA here for 2nd stroke in 3 months, required TNK and subsequent admission to ICU.
# CVA from left M2 occlusion
#Hyperlipidemia
#suspected embolic source stroke, possible afib though not noted on monitors EKGs here
- Status post TNK
- Initial CT head appreciated new calcification anterior genu Lt MCA, suspicious for calcified embolus, subtle density Lt anterior insula concerning for acute to subacute infarction
- CTA Head/Neck Focal Calcification Lt MCA, M2 portion, significant stenosis of the carotid bulbs or proximal internal carotid arteries bilaterally.
- MRI brain appreciated Large 5.9 cm Acute Ischemic Infarct Lt MCA territory w extensive involvement posterior left frontal lobe and left insular cortex. Smaller acute infarcts Lt posterior parietal lobe. Small acute infarcts right parietal lobe.
Mild cerebral/cerebellar volume loss. Mild cervical disc herniations
- Neurology consult appreciated goal bp <180/105 24h following TNK, then normotension. Hold all antiplatelets anticoagulation 24h then ASA 81 mg daily until anticoagulation.
-as per neuro start anticoagulation with discontinuance of aspirin after 48 hours of new stroke onset due to high risk for additional embolic stroke
-ASA discontinued and Eliquis set to start Friday08/09/24
-Cardio eval appreciated planned for LO completed on 08/09 findings p.o. or for thrombus formation on valves or on appendages
-neuro checks
-cont statin
- Video swallow completed, IDDSI 5 recommended
-PT/OT consult appreciated Acute Rehab, request PMR consult Friday
Hypokalemia
Hypomagnesemia
-monitor and replete as necessary
#Seizure
-Keppra continued IV
#essential HTn
-labetalol hydralazine prn
-low dose amlodipine 2.5 mg BID w/ holding parameters started
-monitor and titrate antihypertensive regimen as necessary, goal normotensive at this time
#HLD
cont statin
#recent pneumonia
-started on abx 2 days prior to admission
-chest x ray appreciated no acute dz
-completed additional 3 days IV ceftriaxone and doxy, total 5 days abx completed
CODE STATUS: Full code
To ARU when bed available
Discharge Plan
-
Patient Disposition: Acute Rehab Facility
Discharge Diagnosis/Procedures: Acute CVA
Condition: Fair
Diet: As tolerated
Additional Diets: IDDSI5
Activity: As tolerated
Driving Restrictions: No driving
Activity Restrictions/Additional Instructions:
Presented with new aphasia found to have a large 5.9 cm acute ischemic infarct of the left MCA with extensive involvement of the posterior left frontal lobe and left insular cortex. Evaluated by neurology recommended TNK and therefore was given TNK
admitted to the ICU. Additionally, recommended no further aspirin and start Eliquis after 24 hours of TNK administration. LO demonstrated no MICHELLE thrombus, no PFO normal biventricular size and function. No atrial fibrillation on telemetry.
Evaluated by physical therapy Occupational Therapy speech therapy. Recommended acute inpatient rehab therefore evaluated by physiatry which she agreed.
Outpatient follow-up with cardiology neurology and PCP
May require/may consider monitor as outpatient to assess for A-fib
Head CT
IMPRESSION:
New calcification near the anterior genu of the left middle cerebral artery, suspicious for calcified embolus.
Subtle decreased density involving the left anterior insula, suspicious for acute to subacute infarction.
Head/Neck CT
IMPRESSION: Focal calcification involving the left middle cerebral artery, within the superior division just past the bifurcation. This would be within the proximal M2 portion of the left middle cerebral artery.
Hypoplastic A1 segment of the right anterior cerebral artery.
Calcific atherosclerotic disease, with no evidence for hemodynamically significant stenosis of the carotid bulbs or proximal internal carotid arteries bilaterally.
Dominant left vertebral artery with smaller caliber right vertebral artery. No significant narrowing of the vertebral or basilar arteries.
Head CT
IMPRESSION:
Previous findings concerning for a small acute to subacute infarct in the left insula are stable/slightly improved.
Stable calcification about the left middle cerebral artery suggestive of a calcified embolus.
Limited exam with IV contrast from earlier exam. See above
Brain MRI
IMPRESSION:
1. LARGE 5.9 CM ACUTE ISCHEMIC INFARCT in the LEFT MIDDLE CEREBRAL ARTERY TERRITORY with extensive involvement of the POSTERIOR LEFT FRONTAL LOBE and LEFT INSULAR CORTEX.
2. Smaller acute ischemic infarcts in the left posterior parietal lobe cortical armenta matter.
3. Small acute ischemic infarcts in the posterior cortical armenta matter of the right parietal lobe.
4. Mild diffuse cerebral and cerebellar volume loss.
5. Mild multilevel cervical spinal cord compression and central canal stenosis secondary to disc herniations and facet joint arthrosis.
Referrals:
Abby Hernandez DO [Family Provider, Family Practice]
Rosalind Silva CRNP [Specified Professional Personl, Cardiology] - 09/14/24 2:00 pm
Referral Note: You have cardiology follow up with DANIEL Oliver on September 14 in [address] in the [facility] which is located at behind the hospital. If you are unable to make this appointment please call [phone] to reschedule.
Prescriptions:
New
amlodipine 2.5 mg Tablet
2.5 mg PO BID Qty: 30 0RF
pantoprazole 40 mg Tablet,Delayed Release (Dr/Ec)
40 mg PO DAILY Qty: 30 0RF
metoprolol succinate 25 mg Tablet Extended Release 24 Hr
25 mg PO DAILY Qty: 30 0RF
ezetimibe 10 mg Tablet
10 mg PO DAILY Qty: 30 0RF
Eliquis 5 mg Tablet
5 mg PO BID Qty: 60 0RF
Continued
Women's Daily Formula 1 EACH tablet
1 ea PO DAILY
atorvastatin 80 mg Tablet
80 mg PO QPM Qty: 30 0RF
levetiracetam [Keppra] 500 mg tablet
500 mg PO BID Qty: 60 0RF
cholecalciferol (vitamin D3) [Vitamin D3] 10 mcg (400 unit) Tablet
10 mcg PO DAILY
valsartan-hydrochlorothiazide 320-25 mg tablet
1 tab PO DAILY
Discontinued
clopidogrel 75 mg Tablet
75 mg PO DAILY Qty: 21 0RF
(DME) outpatient occupational and speech therapy
See Rx Instructions .Route .MEDSUPPLY Qty: 1 0RF
Rx Instructions:
outpatient occupational and speech therapy
3 times weekly.
Diagnosis: Acute CVA
prednisone 10 mg tablet
10 mg PO DAILY
Patient Comments:
started 08/03
azithromycin 250 mg tablet
250 mg PO DAILY
Patient Comments:
started 08/03
benzonatate 100 mg capsule
100 mg PO TIDPRN PRN (Reason: cough)
amoxicillin-pot clavulanate 875-125 mg tablet
1 tab PO BID
Discharge Orders:
Discharge Patient (As Directed); Ordered 08/11/24
Ordered By: Hieu Hall
Discharge Date and Time
Print Language: SAMI
[2024-08-11 15:33] VITALS: BP 145/64
== END 2024-08-11 17:19 | DRG 61 ==
LOC: 4 WEST ACU 12:42
PROVIDERS: Internal Medicine; Radiology Diagnostic Radiology; Registered Nurse; Student in an Organized Health Care Education/Training Program; ADMITTING PHYSICIAN Hospitalist; ATTENDING PHYSICIAN Hospitalist; CONSULT PHYSICIAN Internal Medicine Cardiovascular Disease; CONSULT PHYSICIAN Internal Medicine Critical Care Medicine; CONSULT PHYSICIAN Psychiatry & Neurology Neurology; EMERGENCY PHYSICIAN Emergency Medicine; FAMILY PHYSICIAN Family Medicine; OTHER PHYSICIAN Physical Medicine & Rehabilitation
PROC: 3E03317 Introduction of Other Thrombolytic into Peripheral Vein, Percutaneous Approach (ICD-10-PCS; 2024-08-06)
PROC: 0DH67UZ Insertion of Feeding Device into Stomach, Via Natural or Artificial Opening (ICD-10-PCS; 2024-08-08)
PROC: B24BZZ4 Ultrasonography of Heart with Aorta, Transesophageal (ICD-10-PCS; 2024-08-09)
DX: I63.512 Cerebral infarction due to unspecified occlusion or stenosis of left middle cerebral artery (principal); J18.9 Pneumonia, unspecified organism; E87.1 Hypo-osmolality and hyponatremia; G81.91 Hemiplegia, unspecified affecting right dominant side; M50.01 Cervical disc disorder with myelopathy, high cervical region; I48.91 Unspecified atrial fibrillation; I50.9 Heart failure, unspecified; E78.00 Pure hypercholesterolemia, unspecified; M48.02 Spinal stenosis, cervical region; R26.0 Ataxic gait; D75.839 Thrombocytosis, unspecified; E87.8 Other disorders of electrolyte and fluid balance, not elsewhere classified; E87.6 Hypokalemia; R29.810 Facial weakness; D64.9 Anemia, unspecified; R13.10 Dysphagia, unspecified; R47.01 Aphasia; R56.9 Unspecified convulsions; I11.0 Hypertensive heart disease with heart failure; M81.0 Age-related osteoporosis without current pathological fracture; M47.812 Spondylosis without myelopathy or radiculopathy, cervical region; E83.42 Hypomagnesemia; Z96.642 Presence of left artificial hip joint; I69.320 Aphasia following cerebral infarction; Z79.02 Long term (current) use of antithrombotics/antiplatelets; Z88.0 Allergy status to penicillin; Z79.52 Long term (current) use of systemic steroids; Z87.01 Personal history of pneumonia (recurrent); Z86.16 Personal history of COVID-19; Z82.49 Family history of ischemic heart disease and other diseases of the circulatory system; Z83.3 Family history of diabetes mellitus; Z87.891 Personal history of nicotine dependence; Z91.148 Patient's other noncompliance with medication regimen for other reason; Z82.3 Family history of stroke
CPT/HCPCS: 0042T; 70450; 70496; 70498; 70551; 71045; 74018; 74230; 80048; 80053; 80061; 82248; 82962; 83735; 83935; 84100; 84300; 84484; 85025; 85027; 85610; 85730; 92507; 92523; 92526; 92610; 92611; 93005; 93312; 93320; 93325; 97112; 97116; 97163; 97167; 97530; 97535; 99291; J3101; Q9967

== ENCOUNTER 2024-09-28 07:15 | Outpatient (RCR) | payer BC, SELFPAY | END 2024-09-28 23:59 | disposition home or self-care (01) | LOC: RPT 07:15 | PROVIDERS: ATTENDING PHYSICIAN Physical Medicine & Rehabilitation; FAMILY PHYSICIAN Family Medicine | DX: I69.320 Aphasia following cerebral infarction (principal); I69.351 Hemiplegia and hemiparesis following cerebral infarction affecting right dominant side; I69.390 Apraxia following cerebral infarction; R26.89 Other abnormalities of gait and mobility; Z73.6 Limitation of activities due to disability | CPT/HCPCS: 92507; 92523; 97110; 97112; 97116; 97140; 97163; 97167; 97530; 97535 ==

== ENCOUNTER 2024-11-22 09:16 | Outpatient (RCR) | payer BC, MEDICARE, SELFPAY | END 2024-11-22 23:59 | disposition home or self-care (01) | LOC: RPT 09:16 | PROVIDERS: ATTENDING PHYSICIAN Physical Medicine & Rehabilitation; FAMILY PHYSICIAN Family Medicine | DX: I69.320 Aphasia following cerebral infarction (principal); I69.351 Hemiplegia and hemiparesis following cerebral infarction affecting right dominant side; I69.390 Apraxia following cerebral infarction; R26.89 Other abnormalities of gait and mobility; Z73.6 Limitation of activities due to disability | CPT/HCPCS: 92507; 92523; 97110; 97112; 97116; 97140; 97162; 97167; 97530; 97535 ==

== ENCOUNTER → 2024-12-02 12:15 | Outpatient (REF) | payer MEDICARE, OTHER, SELFPAY | LOC: RAD 12:15 | PROVIDERS: ATTENDING PHYSICIAN Family Medicine | DX: M25.551 Pain in right hip (principal) | CPT/HCPCS: 72110; 73502 ==

== ENCOUNTER → 2024-12-04 09:07 | Outpatient (REF) | payer MEDICARE, OTHER, SELFPAY | LOC: MRI 3T 09:07 | PROVIDERS: ATTENDING PHYSICIAN Family Medicine | DX: M25.551 Pain in right hip (principal) | CPT/HCPCS: 73721 ==

== ENCOUNTER 2024-12-09 08:52 | Outpatient (RCR) | payer MEDICARE, OTHER, SELFPAY | END 2024-12-09 23:59 | disposition home or self-care (01) | LOC: RPT 08:52 | PROVIDERS: ATTENDING PHYSICIAN Physical Medicine & Rehabilitation; FAMILY PHYSICIAN Family Medicine | DX: I69.320 Aphasia following cerebral infarction (principal); I69.351 Hemiplegia and hemiparesis following cerebral infarction affecting right dominant side; I69.390 Apraxia following cerebral infarction; R26.89 Other abnormalities of gait and mobility; Z73.6 Limitation of activities due to disability | CPT/HCPCS: 92507; 97110; 97112; 97116; 97140; 97530; 97535 ==

== ENCOUNTER 2025-01-19 06:26 | Outpatient (RCR) | payer MEDICARE, OTHER, SELFPAY | END 2025-01-19 23:59 | disposition home or self-care (01) | LOC: RPT 06:26 | PROVIDERS: ATTENDING PHYSICIAN Physical Medicine & Rehabilitation; FAMILY PHYSICIAN Family Medicine | DX: I69.320 Aphasia following cerebral infarction (principal); I69.351 Hemiplegia and hemiparesis following cerebral infarction affecting right dominant side; I69.390 Apraxia following cerebral infarction; R26.89 Other abnormalities of gait and mobility; Z73.6 Limitation of activities due to disability | CPT/HCPCS: 92507; 97110; 97112; 97530; 97535 ==

== ENCOUNTER 2025-02-23 06:34 | Outpatient (RCR) | payer MEDICARE, OTHER, SELFPAY | END 2025-02-23 23:59 | disposition home or self-care (01) | LOC: RPT 06:34 | PROVIDERS: ATTENDING PHYSICIAN Physical Medicine & Rehabilitation; FAMILY PHYSICIAN Family Medicine | DX: I69.320 Aphasia following cerebral infarction (principal); I69.351 Hemiplegia and hemiparesis following cerebral infarction affecting right dominant side; I69.390 Apraxia following cerebral infarction; R26.89 Other abnormalities of gait and mobility; Z73.6 Limitation of activities due to disability | CPT/HCPCS: 92507; 97110; 97112; 97116; 97140; 97530; 97535; 97537 ==